=== PATIENT | female | born 1980 | race African-American/Black ===

== ENCOUNTER → 2020-09-19 12:21 | Outpatient (BNVA) | payer OTHER, SELFPAY | PROVIDERS: PCP Nurse Practitioner Family; Visit Provider Surgery ==

== ENCOUNTER 2020-09-25 09:42 | Outpatient (REF) | payer OTHER, MEDICAID, SELFPAY ==
--- NOTE | ~2020-09-25 | XR_ITS ---
EXAMINATION: XR CHEST CLINICAL INFORMATION: Obesity COMPARISON: None TECHNIQUE: 2 views of the chest were obtained. FINDINGS: No significant abnormality is noted involving the heart, lungs, mediastinum, bony thorax or soft tissues. XR/XR chest 2V IMPRESSION: Unremarkable examination.
--- NOTE | 2020-09-25 09:54 | ECG_ITS ---
Test Reason : MORBID OBESITY Blood Pressure : / mmHG Vent. Rate : 083 BPM Atrial Rate : 083 BPM P-R Int : 156 ms QRS Dur : 084 ms QT Int : 358 ms P-R-T Axes : 061 006 019 degrees QTc Int : 420 ms Normal sinus rhythm Normal ECG No previous ECGs available Referred By: Davi Salinas Electronically Signed By:Burke Saini
[2020-09-25 10:34] LABS: MANUAL DIFF FLAG NO
[2020-09-25 10:41] LABS: Basophils Percent Auto 0.4 % (0-2); Eosinophils Absolute Auto 0.1 X10*3/uL (0.0-0.4); Eosinophils Percent Auto 1.6 % (0-4); Imm Gran Abs Auto 0.01 X10*3/uL (0.00-0.03); Imm Gran Pct Auto 0.1 % (0.0-0.4); Lymphocytes Absolute Auto 2.4 X10*3/uL (1.2-4.9); Lymphocytes Percent Auto 36.3 % (20-40); Mean Corpuscular HGB Conc 31.4 g/dl (31.0-35.0); Mean Corpuscular Hemoglobin 26.3 pg (27.0-33.0); Mean Corpuscular Volume 83.5 fL (80-98); Mean Platelet Volume 10.7 fL (9.4-12.3); Monocytes Absolute Auto 0.3 X10*3/uL (0.1-1.2); Monocytes Percent Auto 5.1 % (2-11); Neutrophils Absolute Auto 3.8 X10*3/uL (2.0-8.3); Neutrophils Percent Auto 56.5 % (45-73); Platelet Count 276 X10*3/uL (160-400); Red Blood Count 4.19 X10*6/uL (4.20-5.50); Red Cell Distribution Width 16.3 % (11.0-16.0); White Blood Count 6.7 X10*3/uL (4.8-10.8)
[2020-09-25 11:17] LABS: Estimated Average Glucose 105 mg/dL; Hemoglobin A1c % 5.3 %
[2020-09-25 11:18] LABS: Ferritin 19 ng/mL (10-122); TSH reflex Free T4 1.59 uIU/mL (0.32-4.0); Vitamin D 25-OH Total 9.5 ng/mL (>30)
[2020-09-25 11:20] LABS: Alanine Aminotransferase 12 U/L (0-31); Albumin Level 3.8 g/dL (3.5-5.0); Alkaline Phosphatase 73 U/L (39-117); Anion Gap 13 (12-20); Aspartate Amino Transferase 13 U/L (5-31); Bilirubin Total 0.5 mg/dL (0.0-1.0); Blood Urea Nitrogen 11 mg/dL (9-16); C Reactive Protein 1.69 mg/dL (< or = 0.50); Calcium 8.6 mg/dL (8.4-10.2); Carbon Dioxide 21 mmol/L (22-29); Chloride 108 mmol/L (96-108); Cholesterol 98 mg/dL; Estimated Glomerular Filt Rate > 60; Glucose Random 93 mg/dL (60-115); HDL Cholesterol 38 mg/dL; LDL Cholesterol Calculated 54 mg/dl; Potassium 4.2 mmol/L (3.3-5.1); Sodium 138 mmol/L (135-145); Total Protein 7.2 g/dL (6.5-8.0); Triglycerides 31 mg/dL
[2020-09-25 11:52] LABS: Folate 13.4 ng/mL (> or = 4.0); Vitamin B12 813 pg/mL (200-900)
[2020-09-26 09:51] LABS: Insulin Level Total 7.9 uIU/mL
[2020-09-26 15:06] LABS: H Pylori Breath Test NOT DETECTED (NOT DETECTED)
[2020-09-26 17:31] LABS: Calcium (PTHI) 8.8 mg/dL (8.6-10.2); PTHI 48 pg/mL (14-64)
[2020-09-27 19:56] LABS: Zinc 77 mcg/dL (60-130)
[2020-09-28 01:07] LABS: Vitamin A 27 mcg/dL (38-98)
[2020-09-29 12:22] LABS: Vitamin B1 17 nmol/L (8-30)
== END 2020-09-25 09:43 | disposition home or self-care (01) ==
LOC: HO.XRAY 09:42
PROVIDERS: PCP Nurse Practitioner Family; Visit Provider Surgery
DX: E66.01 Morbid (severe) obesity due to excess calories (principal); K21.9 Gastro-esophageal reflux disease without esophagitis; I26.99 Other pulmonary embolism without acute cor pulmonale; E03.9 Hypothyroidism, unspecified
CPT/HCPCS: 36415; 71046; 80053; 80061; 82306; 82607; 82728; 82746; 83013; 83036; 83525; 83970; 84425; 84443; 84590; 84630; 85025; 86140; 93005

== ENCOUNTER 2020-10-02 09:44 | Outpatient (REF) | payer OTHER, SELFPAY ==
--- NOTE | ~2020-10-02 | FL_ITS ---
EXAMINATION: FL XR GI SERIES CLINICAL INFORMATION: Morbid obesity. COMPARISON: None TECHNIQUE: Air contrast upper GI examination. FINDINGS: There is normal apposition of the vocal cords while saying E. There is normal elevation of the soft palatal saying candy. Patient drank thin and thick barium following CO2 crystal ingestion. No nasopharyngeal reflux or tracheal aspiration identified. No Zenker's diverticulum. There is normal esophageal motility. No hiatal hernia was identified. There was some transient gastroesophageal reflux within the distal third of the esophagus which cleared rapidly. The stomach demonstrates normal distensibility without abnormal mass or ulceration. There was no delay in gastric emptying. No mucosal abnormality of the duodenum was identified. On a few images, there appears to be a small duodenal diverticulum off the second portion of the duodenum. FLUOROSCOPY TIME: 2 minutes. DOSE AREA PRODUCT: 18.865 Gy-cm2 (palmer-centimeter squared). FL/FL upper GI series IMPRESSION: 1. Mild transient gastroesophageal reflux within the distal third of the esophagus. 2. Question small duodenal diverticulum.
--- NOTE | ~2020-10-02 | US_ITS ---
EXAMINATION: US COMPLETE ABDOMEN WITH LIVER ELASTOGRAPHY CLINICAL INFORMATION: Morbid obesity COMPARISON: None. TECHNIQUE: Real-time imaging of the abdominal viscera. Noninvasive ultrasound liver fibrosis assessment is performed using Adithya ElastPQ point quantification shear wave elastography (pSWE) with a C5-2 MHz transducer. Multiple elastography samples are obtained. FINDINGS: PANCREAS: Normal. The visualized pancreatic head and body are normal in appearance. The remainder of the pancreas is obscured from visualization by the overlying bowel gas. ABDOMINAL AORTA: The proximal, middle, and distal aortic segments are normal in caliber. INFERIOR VENA CAVA: Visualized portions are normal. LIVER: Normal. The liver demonstrates normal size, contour and echogenicity. No focal lesion or intrahepatic biliary duct dilatation. The right lobe measures 15.1 cm in length. The left lobe measures 11.7 cm in length. Portal flow is hepatopedal Shear wave liver elastography median stiffness is 1.19 m/s (reference: normal median stiffness is 1.3 m/s or less). IQR/median stiffness to assess sampling precision is 0.13 (reference: good quality data set is IQR/median stiffness of 0.15 or less). GALLBLADDER: Normal. The gallbladder is physiologically distended without evidence of stones, sludge, polyps, wall thickening or pericholecystic fluid. COMMON BILE DUCT: Normal in caliber measuring 0.8 cm in diameter. RIGHT KIDNEY: Normal. No hydronephrosis. No renal calculi or focal parenchymal lesions. The kidney measures 11.6 cm in maximum dimension. LEFT KIDNEY: Normal. No hydronephrosis. No renal calculi or focal parenchymal lesions. The kidney measures 10.8 cm in maximum dimension. SPLEEN: Normal. The spleen measures 10.4 cm in maximum dimension. FREE FLUID: None. US/US abdomen comp w elastography IMPRESSION: 1. Normal ultrasound of the abdomen. 2. Liver elastography: Measurements are consistent with a high probability of normal liver stiffness. REFERENCE: Society of Radiologists in Ultrasound Liver Stiffness Thresholds (2020): LIVER STIFFNESS THRESHOLDS: *Liver Stiffness equal or less than 1.3 m/s: High probability of being normal. *Liver Stiffness less than 1.7 m/s: In the absence of other known clinical signs, rules out compensated advanced chronic liver disease. *Liver Stiffness 1.7-2.1 m/s: Suggestive of compensated advanced chronic liver disease but need further test for confirmation. *Liver Stiffness over 2.1 m/s: Rules in compensated advanced chronic liver disease. *Liver Stiffness over 2.4 m/s: Suggestive of clinically significant portal hypertension. QUALITY OF DATA SET: *IQR/Median value equal or less than 0.15 implies a quality data set. *IQR/Median value over 0.15 implies a poor quality data set. SIGNIFICANT CHANGE FROM PRIOR EXAM: Significant change if liver stiffness measurement is 10% or greater from prior exam. OTHER CONSIDERATIONS: The stage of liver fibrosis may be overestimated in the setting of acute hepatitis, liver inflammation, elevated liver function tests, hepatic vascular congestion, obstructive cholestasis, non-fasting state, and infiltrative diseases such as amyloidosis and lymphoma. In some patients with NAFLD, the liver stiffness thresholds for compensated advanced chronic liver disease may be lower. In causes other than viral hepatitis and NAFLD, liver stiffness thresholds are not well established.
== END 2020-10-02 09:45 | disposition home or self-care (01) ==
LOC: HO.US 09:44
PROVIDERS: PCP Nurse Practitioner Family; Visit Provider Surgery
DX: Z01.818 Encounter for other preprocedural examination (principal); E66.01 Morbid (severe) obesity due to excess calories; K21.9 Gastro-esophageal reflux disease without esophagitis; I26.99 Other pulmonary embolism without acute cor pulmonale; E03.9 Hypothyroidism, unspecified
CPT/HCPCS: 74240; 76705; 76981

== ENCOUNTER → 2020-10-09 08:41 | Outpatient (BNVA) | payer OTHER, SELFPAY | PROVIDERS: PCP Nurse Practitioner Family; Visit Provider Surgery ==

== ENCOUNTER → 2020-10-16 08:14 | Outpatient (BNVA) | payer OTHER, SELFPAY | PROVIDERS: PCP Nurse Practitioner Family; Visit Provider Dietitian, Registered | DX: E66.01 Morbid (severe) obesity due to excess calories (principal); Z68.39 Body mass index [BMI] 39.0-39.9, adult | CPT/HCPCS: 97802 ==

== ENCOUNTER → 2020-11-04 08:19 | Outpatient (BNVA) | payer OTHER, SELFPAY | PROVIDERS: PCP Nurse Practitioner Family; Visit Provider Surgery ==

== ENCOUNTER → 2020-11-06 08:04 | Outpatient (BNVA) | payer OTHER, SELFPAY | PROVIDERS: PCP Nurse Practitioner Family; Visit Provider Dietitian, Registered | DX: E66.01 Morbid (severe) obesity due to excess calories (principal); Z68.41 Body mass index [BMI] 40.0-44.9, adult | CPT/HCPCS: 97803 ==

== ENCOUNTER → 2020-11-29 08:28 | Outpatient (BNVA) | payer OTHER, SELFPAY | PROVIDERS: PCP Nurse Practitioner Family; Visit Provider Surgery ==

== ENCOUNTER → 2021-01-06 07:05 | Outpatient (BNVA) | payer MEDICAID, SELFPAY | PROVIDERS: PCP Nurse Practitioner Family; Visit Provider Surgery ==

== ENCOUNTER 2023-05-04 09:10 | Outpatient (AMB) | payer OTHER, SELFPAY ==
--- NOTE | 2023-05-04 09:22 | MHC.OFFVISWM ---
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 She was in the program from August through December 2020 with a weight originally of 275 lb, down to 253 lb in January 15. Around the time that she was ready to have surgery, she had increased anxiety and chose not to pursue any further surgical intervention at that time. She states that since then, she has had several discussions with her behavioral health therapist and feels much more confident about her current goals and she states that she is now in a better place mentally to proceed forward with bariatric surgery. Her goal is to lose weight and achieve a healthy lifestyle. She reports first being concerned about her weight 5 years ago, highest weight to date was 279. Current weight is 279.4 pounds with a BMI of 41.3. She has tried multiple methods of weight loss including previous SWL program without permanent results. She lives with her and 4 children. 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 She does report that she is followed by [facility] for a valvular problem, last being seen in 2021. She was told that there is no current recommendations for intervention. She additionally has a history of pulmonary embolism although this was secondary to vertigo approximately 7 years ago. She wakes at:?5am, and goes to bed at?9 pm. Dinner is at 6 pm. Breakfast: coffee, 4 cream 4 sugar, bagel egg and cheese w koo toasted w butter AM snack: skip Lunch: tacos, cheeseburger and FF, stuffed shells, mac and cheese, wings PM snack: skip Dinner: rice, broccoli, chicken, pork chop After dinner: sometimes pie, ice cream, crackers Other snacks: as above Liquids: 24 oz water, 20 oz coke daily, no juice Alcohol/marijuana/tobacco intake: rare etoh, no cannabis, no tobacco Exercise: [employer] gym membership [facility] Medical History Hypothyroidism Depression GERD (gastroesophageal reflux disease) Pulmonary embolism Epilepsy Morbid obesity Surgical History History of laparoscopic cholecystectomy History of laparoscopic appendectomy Family History Father Coronary artery disease Hypertension Diabetes mellitus Mother Breast cancer Hypertension Daughter No problems noted. Son Asthma Food allergy Son Asthma Food allergy Son Food allergy Asthma Daughter No problems noted. Social History Alcohol intake: current Alcohol intake frequency: holidays/special occasions only Patient Tobacco Use Status: Never used Tobacco Review of Systems Const All systems reviewed & are unremarkable except as noted in HPI and below Physical Exam Const General: cooperative, healthy appearing and no acute distress Orientation/consciousness: patient oriented x3 HEENT Head: Yes normal to inspection Ears: hearing grossly normal bilaterally General nose exam: Normal external nose present Face and sinus: Yes normal facial exam Eyes General: appearance normal, both eyes and all related structures Resp Effort & Inspection: normal respiratory effort Auscultation: clear to auscultation bilaterally Cardio Rate: regular rate Rhythm: regular rhythm Heart sounds: S1 normal heart sound present and S2 normal heart sound present GI Inspection: Yes normal to inspection, No distended and Yes obesity Palpation (GI): Soft to palpation, nontender and no guarding Auscultation: normal bowel sounds Skin General skin exam: no rashes or lesions noted Neuro General: patient oriented x3 Extrem General: No edema Psych Appearance: grossly normal Mental Status: mental status grossly normal Speech and movement: Normal speech and movement present Affect: normal affect Attitude: cooperative Assessment & Plan Assessment & Plan (1) Morbid obesity: Code(s): E66.01 - Morbid (severe) obesity due to excess calories Plan: This is a?42 yo female who will re-start our SWL program to prepare for bariatric surgery.? Blood work, h pylori , CXR, ECG, Abd US and UGI have been ordered. She is being scheduled for RD and BH initial consultations. She will start SWL classes and watch the first three videos before her next appointment. ? Adequate sleep of 7-8 hours per night discussed, awakening at 5 am and going to bed at 9 pm ? You stated that you already have a body composition scale so it will be important to remember to check weight weekly. The best time to do this is first thing in the morning after going to the bathroom. 1. Nutritional counseling: Be sure to careful read the number of scoops per shake Start with 1 celebrate rebuild shake ([facility] [employer], [employer], [employer]), (2 scoops in 20 oz unsweetened almond milk) at 6am-8am 2 protein bars (Celebrate bars at [facility] [employer], [employer], [employer]) First bar at 9am-11am. Second bar at 1pm-3pm Dinner at 6pm (10 forks of protein and 10 forks of salad/vegetables). Meal to include lean meat (beef, fish, pork, turkey, chicken), cooked vegetables or a salad with olive oil and/or fruits (berries, pears, apples, kiwi). Avoid salt, breads, potatoes, rice, pasta, desserts. Try to drink 64 oz of water daily and avoid soda and juices. ?2. Each shake would be drunk slowly, like coffee in a period of 2 hours. ?3. Cut each bar in 4 pieces and eat each piece in 30 min ?to make each bar last 2 hours. ?4. I emphasized the importance of measuring accurately the food portion and measure it carefully when serving the food on the plate ?5. The meal portions include 10 full-size forks of meat and 10 full-size forks of salad. You always eat the meat portion but you can replace up to half of the forks of salad/vegetables with rice, potatoes or pasta, or a fruit ?if you like. The less you do it the better weight loss will be. ?6. One full-size fork is what can be scooped on the fork without falling aside and not what can be bit with the fork. Use regular forks like those you find in a typical restaurant. ?7.? Please send me weight measurements as soon as possible and then once a week. Always include your diet and exercise plan. Alternatively come weekly at the office for weight checks and send me the measurements. ?8. Exercise counseling: Begin by watching a stretching for beginners video. Start slowly and begin to stretch your muscles. You should do this before and after each exercise session to prevent injury. Please go to [employer] gym near your home. Ask the global upstream marketing manager or one of the trainers how to use the machines if you are unfamiliar with them. Start elliptical with a resistance of 2. Increase resistance by 1 every 3 min to your most comfortable resistance with a max resistance of 8. Reduce the resistance by 1 every 3 minutes back down to 2 and repeat cycles for 300 calories. Alternatively, start treadmill with a speed of 3.0 and incline of 0, increasing incline by 1 every 3 minutes to the highest comfortable level (max 6 for now) then decrease in the same fashion. Repeat process to a goal of 300 calories. Goal of 2000 calories burned or more weekly. You may also consider use of the stationary bike. The easiest would be to chose the fat-burn or interval training program on the machine and do this until you reach the 300 calorie goal. Alternatively, you can manually adjust the resistance in a similar fashion as mentioned above, (resistance of 2-8 with a goal speed of 12 mph). Tracking calories is essential. 9. Alternatively start walking outside daily, tracking calories with a goal of 300 calories per day, daily. You can download the [employer] which can track your time, distance and calories while walking outside. You press start in the funmilayo when you start and then stop when you are finished. 10.? It is important to avoid for at least 18 months postoperatively 11. Please get labs, EKG and chest X-Ray within 1 week. 12. Discussed and answered all questions regarding?obtained consent to participate in the [place]?Registry. 13. Please follow the diet plan exactly, without any change. If you do not like something about the plan or you feel hungry, you need to communicate with me so I can help you revise the plan. You should not change the plan yourself. Text me at [phone] 14. Goal is to lose at least 12 pounds in the first month 15. Goal is to lose 10% of your weight before surgery, which is about 28 lbs. Ultimate weight goal: 251 lbs before surgery 16. Please call your driver operator at [facility] to arrange for a follow-up appointment to your noted valvular problem and to request cardiac risk stratification for bariatric surgery. Please have them fax their note to our office at [phone] Patient is morbidly obese and is not considered stable at this time.?I spent a total of 70 minutes reviewing/updating records, examining the patient and counseling the patient on weight management as detailed above. Orders: Orders Comprehensive Met. Panel Today E50.9 - Vitamin A deficiency, unspecified, E55.9 - Vitamin D deficiency, unspecified, E66.01 - Morbid (severe) obesity due to excess calories Vitamin B1 Today E50.9 - Vitamin A deficiency, unspecified, E55.9 - Vitamin D deficiency, unspecified, E66.01 - Morbid (severe) obesity due to excess calories PTHI Today E50.9 - Vitamin A deficiency, unspecified, E55.9 - Vitamin D deficiency, unspecified, E66.01 - Morbid (severe) obesity due to excess calories H Pylori Breath Test Today E50.9 - Vitamin A deficiency, unspecified, E55.9 - Vitamin D deficiency, unspecified, E66.01 - Morbid (severe) obesity due to excess calories US abdomen comp w elastography Today E50.9 - Vitamin A deficiency, unspecified, E55.9 - Vitamin D deficiency, unspecified, E66.01 - Morbid (severe) obesity due to excess calories XR chest 2V Today E50.9 - Vitamin A deficiency, unspecified, E55.9 - Vitamin D deficiency, unspecified, E66.01 - Morbid (severe) obesity due to excess calories FL upper GI w air Today E50.9 - Vitamin A deficiency, unspecified, E55.9 - Vitamin D deficiency, unspecified, E66.01 - Morbid (severe) obesity due to excess calories Insulin Today E50.9 - Vitamin A deficiency, unspecified, E55.9 - Vitamin D deficiency, unspecified, E66.01 - Morbid (severe) obesity due to excess calories Lipid Panel Today E50.9 - Vitamin A deficiency, unspecified, E55.9 - Vitamin D deficiency, unspecified, E66.01 - Morbid (severe) obesity due to excess calories IRON PROFILE Today E50.9 - Vitamin A deficiency, unspecified, E55.9 - Vitamin D deficiency, unspecified, E66.01 - Morbid (severe) obesity due to excess calories Complete Blood Count Auto Diff Today E50.9 - Vitamin A deficiency, unspecified, E55.9 - Vitamin D deficiency, unspecified, E66.01 - Morbid (severe) obesity due to excess calories Vitamin B12 and Folate Today E50.9 - Vitamin A deficiency, unspecified, E55.9 - Vitamin D deficiency, unspecified, E66.01 - Morbid (severe) obesity due to excess calories Zinc Today E50.9 - Vitamin A deficiency, unspecified, E55.9 - Vitamin D deficiency, unspecified, E66.01 - Morbid (severe) obesity due to excess calories Vitamin A Today E50.9 - Vitamin A deficiency, unspecified, E55.9 - Vitamin D deficiency, unspecified, E66.01 - Morbid (severe) obesity due to excess calories C Reactive Protein Today E50.9 - Vitamin A deficiency, unspecified, E55.9 - Vitamin D deficiency, unspecified, E66.01 - Morbid (severe) obesity due to excess calories Ferritin Today E50.9 - Vitamin A deficiency, unspecified, E55.9 - Vitamin D deficiency, unspecified, E66.01 - Morbid (severe) obesity due to excess calories TSH reflex Free T4 Today E50.9 - Vitamin A deficiency, unspecified, E55.9 - Vitamin D deficiency, unspecified, E66.01 - Morbid (severe) obesity due to excess calories Vitamin D 25-OH Total Today E50.9 - Vitamin A deficiency, unspecified, E55.9 - Vitamin D deficiency, unspecified, E66.01 - Morbid (severe) obesity due to excess calories Hemoglobin A1c Today E50.9 - Vitamin A deficiency, unspecified, E55.9 - Vitamin D deficiency, unspecified, E66.01 - Morbid (severe) obesity due to excess calories ECG 12 lead EKG Today E50.9 - Vitamin A deficiency, unspecified, E55.9 - Vitamin D deficiency, unspecified, E66.01 - Morbid (severe) obesity due to excess calories Referrals Behavioral Health Referral E50.9 - Vitamin A deficiency, unspecified, E55.9 - Vitamin D deficiency, unspecified, E66.01 - Morbid (severe) obesity due to excess calories Nutrition/Dietitian Referral E50.9 - Vitamin A deficiency, unspecified, E55.9 - Vitamin D deficiency, unspecified, E66.01 - Morbid (severe) obesity due to excess calories Coding Level of Care Code Est Pt Level 5 (84663) Diagnoses Morbid obesity E66.01 Time Spent (min) 70
[2023-05-04 09:29] VITALS: BP 132/71; PULSE 88; TEMP 36.6; O2SAT 100; BMI 41.3
== END 2023-05-04 11:02 | disposition home or self-care (01) ==
PROVIDERS: PCP Nurse Practitioner Family; Visit Provider Physician Assistant Surgical
DX: E66.01 Morbid (severe) obesity due to excess calories (principal); Z68.41 Body mass index [BMI] 40.0-44.9, adult
CPT/HCPCS: 99215

== ENCOUNTER → 2023-05-04 09:10 | Outpatient (BNVA) | payer OTHER, SELFPAY | PROVIDERS: PCP Nurse Practitioner Family; Visit Provider Physician Assistant Surgical | DX: E66.01 Morbid (severe) obesity due to excess calories (principal); Z68.41 Body mass index [BMI] 40.0-44.9, adult | CPT/HCPCS: 99212 ==

== ENCOUNTER 2023-05-07 07:36 | Outpatient (REF) | payer OTHER, SELFPAY ==
[2023-05-07 08:02] LABS: MANUAL DIFF FLAG NO
[2023-05-07 09:11] LABS: Basophils Percent Auto 0.5 % (0-2); Eosinophils Absolute Auto 0.1 X10*3/uL (0.0-0.4); Eosinophils Percent Auto 1.7 % (0-4); Hematocrit 36.1 % (37.0-47.0); Hemoglobin 11.6 g/dl (12.0-16.0); Imm Gran Abs Auto 0.01 X10*3/uL (0.00-0.03); Imm Gran Pct Auto 0.2 % (0.0-0.4); Lymphocytes Percent Auto 31.6 % (20-40); Mean Corpuscular HGB Conc 32.1 g/dl (31.0-35.0); Mean Corpuscular Hemoglobin 26.7 pg (27.0-33.0); Mean Platelet Volume 11.1 fL (9.4-12.3); Monocytes Absolute Auto 0.4 X10*3/uL (0.1-1.2); Monocytes Percent Auto 5.7 % (2-11); Neutrophils Absolute Auto 3.9 x10*3/uL (2.0-8.3); Neutrophils Percent Auto 60.3 % (45-73); Platelet Count 281 X10*3/uL (160-400); Red Blood Count 4.35 X10*6/uL (4.20-5.50); Red Cell Distribution Width 15.2 % (11.0-16.0); White Blood Count 6.4 X10*3/uL (4.8-10.8)
[2023-05-07 09:26] LABS: Estimated Average Glucose 114 mg/dL; Hemoglobin A1c % 5.6 % (<6.0)
[2023-05-07 10:13] LABS: Folate 9.5 ng/mL (> or = 4.0); Vitamin B12 936 pg/mL (200-900)
[2023-05-07 10:48] LABS: Alanine Aminotransferase 12 U/L (0-31); Albumin Level 3.8 g/dL (3.5-5.0); Alkaline Phosphatase 67 U/L (39-117); Anion Gap 9 (12-20); Aspartate Amino Transferase 14 U/L (5-31); Bilirubin Total 0.5 mg/dL (0.0-1.0); Blood Urea Nitrogen 12 mg/dL (9-16); C Reactive Protein 1.86 mg/dL (< or = 0.50); Calcium 8.9 mg/dL (8.4-10.2); Carbon Dioxide 23 mmol/L (22-29); Chloride 110 mmol/L (96-108); Cholesterol 91 mg/dL (<200); Estimated Glomerular Filt Rate > 60; Glucose Random 103 mg/dL (60-115); HDL Cholesterol 33 mg/dL (>40); Iron 42 mcg/dL (30-160); LDL Cholesterol Calculated 52 mg/dL (<100); Percent Iron Saturation 14 % (15-50); Sodium 138 mmol/L (135-145); Total Iron Binding Capacity 310 mcg/dL (228-428); Total Protein 7.6 g/dL (6.5-8.0); Triglycerides 32 mg/dL (<150); Unsaturated Iron Binding 268 ug/dL
[2023-05-07 11:10] LABS: Ferritin 31 ng/mL (10-250); Insulin 16 uU/mL (2-29); TSH reflex Free T4 1.49 uIU/mL (0.32-4.0); Vitamin D 25-OH Total 13.2 ng/mL (>30)
[2023-05-10 17:28] LABS: PTHI 35 pg/mL (16-77)
[2023-05-11 06:04] LABS: Zinc 64 mcg/dL (60-130)
[2023-05-12 09:28] LABS: Vitamin A 27 mcg/dL (38-98)
[2023-05-12 12:59] LABS: Vitamin B1 9 nmol/L (8-30)
== END 2023-05-07 07:37 | disposition home or self-care (01) ==
LOC: HO.LAB 07:36
PROVIDERS: PCP Nurse Practitioner Family; Visit Provider Physician Assistant Surgical
DX: E66.01 Morbid (severe) obesity due to excess calories (principal); E50.9 Vitamin A deficiency, unspecified; E55.9 Vitamin D deficiency, unspecified
CPT/HCPCS: 36415; 80053; 80061; 82306; 82607; 82728; 82746; 83036; 83525; 83540; 83970; 84425; 84443; 84590; 84630; 85025; 86140

== ENCOUNTER 2023-05-19 08:41 | Outpatient (REF) | payer OTHER, SELFPAY ==
[2023-05-20 10:50] LABS: H Pylori Breath Test Negative (Negative)
== END 2023-05-19 08:42 | disposition home or self-care (01) ==
LOC: CF 08:41
PROVIDERS: PCP Nurse Practitioner Family; Visit Provider Physician Assistant Surgical
DX: Z11.2 Encounter for screening for other bacterial diseases (principal); E66.01 Morbid (severe) obesity due to excess calories; E50.9 Vitamin A deficiency, unspecified; E55.9 Vitamin D deficiency, unspecified
CPT/HCPCS: 83013; 99211

== ENCOUNTER → 2023-05-25 09:21 | Outpatient (BNVA) | payer OTHER, SELFPAY | PROVIDERS: PCP Nurse Practitioner Family; Visit Provider Dietitian, Registered | DX: E66.9 Obesity, unspecified (principal) | CPT/HCPCS: 97802 ==

== ENCOUNTER 2023-05-31 15:14 | Outpatient (AMB) | payer OTHER, SELFPAY ==
--- NOTE | 2023-05-31 09:58 | MHC.OFFVISWM ---
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 Allergies No Known Allergies [No Known Allergies*] Allergy (Verified 05/04/23 09:24) Medication List - Last Reconciled 05/31/23 by BRITTANY Nathan apixaban (Eliquis) 5 mg PO BID bupropion HCl (Wellbutrin SR) 150 mg PO BID cholecalciferol (vitamin D3) 125 mcg PO DAILY 90 days iron,carbonyl-vitamin C 65 mg iron- 125 mg (Vitron-C) 1 tab PO DAILY 90 days levetiracetam (Keppra) 1,000 mg PO BID vitamin A palmitate 3,000 mcg PO DAILY 60 days HPI HPI Comments History of Present Illness Details The patient is a pleasant 42 year old female who returns to the clinic for pre-operative surgical weight loss management. They were last seen in the office on 05/04/23, recorded weight at that time was 279.4 pounds, with a BMI of 41.3. Today's weight is 278 pounds and BMI is 41.1. There has been a weight loss of 1.4 pounds since initiating the surgical weight loss program on 05/04/23 with a total body weight loss of 0.5 %. Pre op work up completed as follows: SWL classes:? 10/03 appts: 06/01/23 ? ? RD appts: needs f/u Labs: 05/07/23-low A, D, mild iron def anemia H. pylori: 05/19/23-neg CXR: not yet done EKG: not yet done ABD U/S: not yet done UGI: not yet done The patient reports she has upset stomach for the 4 days, with assoc constipation. She has been using a dose of miralax daily. The patient does have a body composition scale. They also have been communicating weekly. She did not follow any meal plan for the . She is now back on track with her meal plan. Current meal plan includes: 1 celebrate rebuild shake ([facility] [employer], [employer]), (2 scoops in 20 oz unsweetened almond milk) at 6am-8am 2 protein bars (Celebrate bars at [facility] [employer], [employer], [employer]) First bar at 9am-11am. Second bar at 1pm-3pm Dinner at 6pm (10 forks of protein and 10 forks of salad/vegetables). Drinking 64 oz of water Current exercise plan includes: none in the last 5 days. Treadmill, 300 calories typically 3 days per week and walking on the weekends, not tracking calories PFSH Medical History Hypothyroidism Depression GERD (gastroesophageal reflux disease) Pulmonary embolism Epilepsy Morbid obesity Surgical History History of laparoscopic cholecystectomy History of laparoscopic appendectomy Family History Father Coronary artery disease Hypertension Diabetes mellitus Mother Breast cancer Hypertension Daughter No problems noted. Son Asthma Food allergy Son Asthma Food allergy Son Food allergy Asthma Daughter No problems noted. Social History Alcohol intake: current Alcohol intake frequency: holidays/special occasions only Patient Tobacco Use Status: Never used Tobacco Review of Systems Const All systems reviewed & are unremarkable except as noted in HPI and below Assessment & Plan Assessment & Plan (1) Morbid obesity: Code(s): E66.01 - Morbid (severe) obesity due to excess calories Plan: Patient has been encouraged to maintain discipline and adhere to the meal plan. She recognized the abdominal discomfort when she ate too much at the . She was additionally encouraged to return to the gym. Continue current meal plan and return to clinic in 3 weeks. (2) Constipation: Code(s): K59.00 - Constipation, unspecified Plan: Add Dulcolax suppository today and senna tablets orally. Discussed with the patient that she may need 1 senna tablet nightly or every other night based upon regularity once she resolves current constipation issue Medications: New sennosides (senna) 17.2 mg (2 x 8.6 mg) PO BEDTIME PRN 90 tabs 0RF constipation bisacodyl (Dulcolax (bisacodyl)) 10 mg [place] DAILY PRN 12 ea 0RF constipation Telehealth Telehealth Location of provider rendering services: practice address Location of patient: address on file Patient Identification confirmed using: Name, : Yes Telehealth method: voice only Patient verbally consented to treatment: Yes Patient verbally consented to billing insurance company: Yes Patient informed of any privacy concerns related to visit: Yes Minutes spent on Phone/Video with Pt.: 15 Coding Level of Care Code Tele Est Pt Level 3 (46989) Diagnoses Morbid obesity E66.01 Constipation K59.00 Time Spent (min) 20
[2023-05-31 09:59] VITALS: BMI 41.0
--- OUTSIDE RECORDS SUMMARY | 2023-05-31 15:20 | XMS_ITS | Continuity of Care Document ---
Author Name Unknown Organization [facility] Address [address] [place] [address]- Care Team Providers Care Geological Drafter Name Role Phone Lori Cervantes NP Primary Care Physician [place] [facility] [place]/23 [facility] [address] Floor [address] [place] [address]- Attending Physician: Dottie Akins Admitting Physician: AdmDottie samuel Referring Physician: Admtr, Ar8 Allergies, Adverse Reactions, Alerts Substance Reaction Severity Status papaya Active Bee Stings Active Immunizations Given and Recorded Vaccine Date Status Refusal Reason Influenza Virus Vaccine (oldterm) 04/10/22 Recorde d Influenza Virus Vaccine (oldterm) 04/16/20 Recorde d SARS-CoV-2 (COVID-19) mRNA BNT-162b2 vac 05/16/21 Recorded SARS-CoV-2 (COVID-19) mRNA BNT-162b2 vac 08/14/20 Recorded SARS-CoV-2 (COVID-19) mRNA BNT-162b2 vac 07/24/20 Recorded influenza virus vaccine, inactivated 04/25/21 Saad rded influenza virus vaccine, inactivated 03/25/21 Saad rded influenza virus vaccine, inactivated 04/17/20 Saad rded influenza virus vaccine, inactivated 1 04/13/16 Gi luna influenza virus vaccine, inactivated 03/13/15 Saad rded influenza virus vaccine, inactivated 04/28/13 Saad rded influenza virus vaccine, inactivated 03/18/10 Saad rded influenza virus vaccine, inactivated 03/26/09 Saad rded pneumococcal 23-valent vaccine 10/09/16 Given tetanus/diphtheria/pertussis, acel(Tdap) 04/13/16 Given tetanus/diphtheria/pertussis, acel(Tdap) 11/04/11 Recorded Human Papillomavirus Vaccine 05/07/09 Recorded Botulinum Toxin Type A Vacc (oldterm) 2 07/27/08 R ecorded Botulinum Toxin Type A Vacc (oldterm) 3 07/27/08 R ecorded Botulinum Toxin Type A Vacc (oldterm) 4 07/27/08 R ecorded Hepatitis B Vaccine (old term) 08/07/04 Recorded Hepatitis B Vaccine (old term) 02/28/04 Recorded Hepatitis B Vaccine (old term) 02/01/04 Recorded tetanus-diphtheria toxoids (Td) 02/01/04 Recorded diphtheria/tetanus/pertussis, acel(DTaP) 02/24/88 Recorded diphtheria/tetanus/pertussis, acel(DTaP) 09/05/85 Recorded diphtheria/tetanus/pertussis, acel(DTaP) 06/12/83 Recorded diphtheria/tetanus/pertussis, acel(DTaP) 03/23/83 Recorded diphtheria/tetanus/pertussis, acel(DTaP) 82 Recorded Measles/Mumps/Rubella Virus Vaccine 09/05/85 Recor ded 1Result Comment: Seqirus 2Result Comment: mumps titre + 3Result Comment: measles titer + 4Result Comment: HEPATITIS B TITER- POSITIVE + Medications albuterol CFC free 90 mcg/inh inhalation aerosol 2, puffs, Inhalation, Every 4 hours, PRN, # 6.7 Gm, Refills 0, Tot. Refills 0, Maintenance, 03/17/23 9:04:00 EDT, Aerosol, Route to Pharmacy Electronically, [id number], [facility] 1967, 175, cm, 01/11/23 12:44:00 EDT, H... Start Date: 03/17/23 Stop Date: 04/16/23 Status: Ordered BuPROPion (Eqv-Wellbutrin SR) 150 mg/12 hours oral tablet, extended release 1 tablet, By Mouth, 2 times a day, # 180 tablet, 0 Refills, Maintenance, 04/28/23 11:00:00 EDT, [facility] 1967, 175, cm, 04/02/23 10:08:00 EDT, Height, 126, kg, 09/03/22 22:49:00 EST, Dry Weight Start Date: 04/28/23 Stop Date: 07/27/23 Status: Ordered Compression Stockings See Instructions, # 2 each, Refills 2, Tot. Refills 2, Maintenance, surgical, knee length 20-30 mm Hg, 06/23/21 8:35:00 EST, Supply Start Date: 06/23/21 Status: Ordered Eliquis 2.5 mg oral tablet 1 tablet = 2.5 mg, By Mouth, 2 times a day, # 180 tablet, 3 Refills, Maintenance, 08/20/22 15:48:00EST, Tablet, [facility] 1966, Partial fill upon patient request if the prescription is for a schedule II opioid drug., 175.5, cm, 08/14/22 15:05:... Start Date: 08/20/22 Status: Ordered furosemide 20 mg oral tablet 1, tablet, By Mouth, Daily, # 90 tablet, Refills 0, Tot. Refills 0, Maintenance, 01/01/23 16:49:00 EDT, Route to Pharmacy Electronically, [facility] 1967, 175, cm, 01/01/23 16:45:00 EDT, Height, 126, kg, 09/03/22 22:49:00 EST, Dry Weight Start Date: 01/01/23 Stop Date: 04/01/23 Status: Ordered levETIRAcetam 1000 mg oral tablet 1 tablet = 1,000 mg, By Mouth, 2 times a day, # 60 tablet, 11 Refills, Maintenance, 12/24/22 8:37:00 EDT, Tablet, [facility] 1967, Partial fill upon patient request, 175, cm, 12/17/22 11:21:00 EDT, Height, 126, kg, 09/03/22 22:49:00 EST, Dry Weight Start Date: 12/24/22 Stop Date: 12/19/23 Status: Ordered MiraLax oral powder for reconstitution = 17 Gm, By Mouth, Daily, dissolve in water before taking, # 527 Gm, 0 Refills, Maintenance, 09/03/22 23:10:00 EST, REC Powder, [facility] 1966, Partial fill upon patient request if the prescription is for a schedule II opioid drug., 17 Gm By Mo... Start Date: 09/03/22 Status: Ordered Nexplanon 68 mg subcutaneous implant 1 each = 68 mg, Subcutaneous Infusion, Once, 0 Refills, Maintenance, 04/01/23 9:45:00 EDT, Partial fill upon patient request if the prescription is for a schedule II opioid drug. Start Date: 04/01/23 Status: Ordered Problem List Condition Confirmation Course Effective Dates Status H ealth Status Informant Hypothyroidism (acquired) Confirmed 12/29/15 Active ADHD Confirmed Active Bilateral hearing loss Confirmed Active Epilepsy Confirmed Active History of blood clots Confirmed Active Menorrhagia Confirmed Active Bipolar 1 disorder, manic, mild Confirmed 09/28/15 Active Anxiety and depression Confirmed Active Severe obesity Confirmed Active Thalassemia syndrome Confirmed 1998 Active Urge incontinence Confirmed Active Social History Social History Type Response Smoking Status Never smoker entered on: 12/05/15 Sex Female Patient Care team information Care Team Personnel Name: Cecilio Cornejo RN Position: [facility] RN Member Role: Primary Care Nurse Name: Lori Cervantes NP Position: [facility] PCO Associate Professional Member Role: PCP Address: Address: [address] [place] [address] Name: Ian RN, Scotty Shultz Position: [facility] RN Member Role: Primary Care Nurse Name: Nelson Moscoso RN Position: [facility] ED RN W/OE and Tasks Member Role: Primary Care Nurse Name: Fiona Gillis RN Position: [facility] SN RN Member Role: Primary Care Nurse Name: Eve Roy RN Position: [facility] RN Member Role: Primary Care Nurse Care Team Related Persons Name: BRAD DOMINGO Address: home [address] [place] [address] Name: CHACORTA DOMINGO Address: home [address] [place] [address] Name: DAMION MENARD Address: [place] [address]
--- OUTSIDE RECORDS SUMMARY | 2023-05-31 15:25 | XMS_ITS | Continuity of Care Document ---
Author Name Unknown Organization [facility] Address [address] [place] [address]- Care Team Providers Care Sap Grc Security Name Role Phone Lori Cervantes NP Primary Care Physician [id number] Date(s): 04/21/23 - 05/27/23 [facility] [address] [place] [address]- Attending Physician: Juanito White Admitting Physician: Juanito White Referring Physician: Lori Cervantes NP Allergies, Adverse Reactions, Alerts Substance Reaction Severity [...] 9:04:00 EDT, Aerosol, Route to Pharmacy Electronically, [id number], [facility] 1967, 175, cm, 01/11/23 12:44:00 EDT, H... Start Date: 03/17/23 Stop Date: 04/16/23 Status: Ordered BuPROPion (Eqv-Wellbutrin SR) 150 mg/12 hours oral tablet, extended release 1 tablet, By Mouth, 2 times a day, # 180 tablet, 0 Refills, Maintenance, 04/28/23 11:00:00 EDT, [facility] 1967, 175, cm, 04/02/23 10:08:00 [...] tablet, 3 Refills, Maintenance, 08/20/22 15:48:00EST, Tablet, [facility] 1966, Partial fill upon patient request if the prescription is for a schedule II opioid drug., 175.5, cm, 08/14/22 15:05:... Start Date: 08/20/22 Status: Ordered furosemide 20 mg oral tablet 1, tablet, By Mouth, Daily, # 90 tablet, Refills 0, Tot. Refills 0, Maintenance, 01/01/23 16:49:00 EDT, Route to Pharmacy Electronically, [facility] 1967, 175, cm, 01/01/23 16:45:00 EDT, Height, 126, kg, 09/03/22 22:49:00 EST, Dry Weight Start Date: 01/01/23 Stop Date: 04/01/23 Status: Ordered levETIRAcetam 1000 mg oral tablet 1 tablet = 1,000 mg, By Mouth, 2 times a day, # 60 tablet, 11 Refills, Maintenance, 12/24/22 8:37:00 EDT, Tablet, [facility] 1967, Partial fill upon patient request, 175, cm, 12/17/22 11:21:00 EDT, Height, 126, kg, 09/03/22 22:49:00 EST, Dry Weight Start Date: 12/24/22 Stop Date: 12/19/23 Status: Ordered MiraLax oral powder for reconstitution = 17 Gm, By Mouth, Daily, dissolve in water before taking, # 527 Gm, 0 Refills, Maintenance, 09/03/22 23:10:00 EST, REC Powder, [facility] 1966, Partial fill upon patient [...] Team Personnel Name: Cecilio Cornejo RN Position: [facility] RN Member Role: Primary Care Nurse Name: Lori Cervantes NP Position: [facility] PCO Associate Professional Member Role: PCP Address: Address: [address] [place] [address] Name: Ian RN, Scotty Shultz Position: [facility] RN Member Role: Primary Care Nurse Name: Nelson Moscoso RN Position: [facility] ED RN W/OE and Tasks Member Role: Primary Care Nurse Name: Fiona Gillis RN Position: [facility] SN RN Member Role: Primary Care Nurse Name: Eve Roy RN Position: [facility] RN Member Role: Primary Care Nurse Care Team Related Persons Name: BRAD DOMINGO Address: home [address] [place] [address] Name: CHACORTA DOMINGO Address: home [address] [place] [address] Name: DAMION MENARD Address: [place] [address]
--- OUTSIDE RECORDS SUMMARY | 2023-05-31 15:25 | XMS_ITS | Continuity of Care Document ---
Author Name Unknown Organization [facility] Address [address] [place] [address]- Care Team Providers Care Production Cloth Cutter Name Role Phone Lori Cervantes NP Primary Care Physician [phone] Encounter [facility] [place] Date(s): 04/26/23 - 05/26/[address] [facility] [address] [place] [id number]- Allergies, Adverse Reactions, Alerts Substance Reaction Severity [...] 9:04:00 EDT, Aerosol, Route to Pharmacy Electronically, [id number], [facility] 1967, 175, cm, 01/11/23 12:44:00 EDT, H... Start Date: 03/17/23 Stop Date: 04/16/23 Status: Ordered BuPROPion (Eqv-Wellbutrin SR) 150 mg/12 hours oral tablet, extended release 1 tablet, By Mouth, 2 times a day, # 180 tablet, 0 Refills, Maintenance, 04/28/23 11:00:00 EDT, [facility] 1967, 175, cm, 04/02/23 10:08:00 EDT, [...] tablet, 3 Refills, Maintenance, 08/20/22 15:48:00EST, Tablet, [facility] 1966, Partial fill upon patient request if the prescription is for a schedule II opioid drug., 175.5, cm, 08/14/22 15:05:... Start Date: 08/20/22 Status: Ordered furosemide 20 mg oral tablet 1, tablet, By Mouth, Daily, # 90 tablet, Refills 0, Tot. Refills 0, Maintenance, 01/01/23 16:49:00 EDT, Route to Pharmacy Electronically, [facility] 1967, 175, cm, 01/01/23 16:45:00 EDT, Height, 126, kg, 09/03/22 22:49:00 EST, Dry Weight Start Date: 01/01/23 Stop Date: 04/01/23 Status: Ordered levETIRAcetam 1000 mg oral tablet 1 tablet = 1,000 mg, By Mouth, 2 times a day, # 60 tablet, 11 Refills, Maintenance, 12/24/22 8:37:00 EDT, Tablet, [facility] 1966, Partial fill upon patient request, 175, cm, 12/17/22 11:21:00 EDT, Height, 126, kg, 09/03/22 22:49:00 EST, Dry Weight Start Date: 12/24/22 Stop Date: 12/19/23 Status: Ordered MiraLax oral powder for reconstitution = 17 Gm, By Mouth, Daily, dissolve in water before taking, # 527 Gm, 0 Refills, Maintenance, 09/03/22 23:10:00 EST, REC Powder, [facility] 1966, Partial fill upon patient request [...] Team Personnel Name: Cecilio Cornejo RN Position: [facility] RN Member Role: Primary Care Nurse Name: Lori Cervantes NP Position: [facility] PCO Associate Professional Member Role: PCP Address: Address: [address] [place] [address] Name: Scotty Sosa RN Position: [facility] RN Member Role: Primary Care Nurse Name: Blanka CORTÉS, Nelson Position: [facility] ED RN W/OE and Tasks Member Role: Primary Care Nurse Name: Eve Roy RN Position: [facility] RN Member Role: Primary Care Nurse Care Team Related Persons Name: JOSE L GIPAT Address: home [address] [place] [id number] Name: CHACORTA DOMINGO Address: home [address] [place] [address] Name: DAMION MENARD Address: [place] [address]
== END 2023-05-31 16:29 | disposition home or self-care (01) ==
LOC: HO.HBS 15:14
PROVIDERS: PCP Nurse Practitioner Family; Visit Provider Physician Assistant Surgical
DX: E66.01 Morbid (severe) obesity due to excess calories (principal); K59.00 Constipation, unspecified
CPT/HCPCS: 99213

== ENCOUNTER → 2023-05-31 15:14 | Outpatient (BNVA) | payer OTHER, SELFPAY | PROVIDERS: PCP Nurse Practitioner Family; Visit Provider Physician Assistant Surgical | DX: E66.01 Morbid (severe) obesity due to excess calories (principal); K59.00 Constipation, unspecified ==

== ENCOUNTER 2023-06-11 06:09 | Outpatient (REF) | payer OTHER, SELFPAY ==
--- NOTE | ~2023-06-11 | XR_ITS ---
EXAMINATION: XR CHEST CLINICAL INFORMATION: Morbid severe obesity due to excess calories. COMPARISON: 09/25/2020. TECHNIQUE: 2 views of the chest were obtained. FINDINGS: There is no gross pneumothorax. Heart size is normal. Lung volumes are low. No pleural effusion. No focal consolidation to suggest pneumonia. Surgical clips in the upper abdomen. XR/XR chest 2V IMPRESSION: Low lung volumes. No evidence of pneumonia.
== END 2023-06-11 06:10 | disposition home or self-care (01) ==
LOC: HO.XRAY 06:09
PROVIDERS: PCP Nurse Practitioner Family; Visit Provider Physician Assistant Surgical
DX: E66.01 Morbid (severe) obesity due to excess calories (principal)
CPT/HCPCS: 71046

== ENCOUNTER 2023-06-14 09:14 | Outpatient (AMB) | payer OTHER, SELFPAY ==
--- NOTE | 2023-06-14 09:09 | MHC.AMNUTRGE ---
Intake Intake Visit Reasons: TV F/U SWL Allergies No Known Allergies [No Known Allergies*] Allergy (Verified 05/04/23 09:24) HPI Nutrition Presentation Reason for consult elevated BMI Diet Assmnt Details Pt reports following program meal plan provided by PA and doing well . She likes the bars and shakes very much. She has no questions. SWL online classes: 02/02 ; reviewed Dietary counseling reduction Diagnosis Nutrition problem #1 overweight/obesity As related to (etiology) #1 excess energy intake and physical inactivity As evidenced by (sign/symptom) #1 high BMI Monitoring/Goals Nutrition problem monitoring total energy intake, level of knowledge/skill, total PRO intake, total CHO intake, weight and oral fluids Outcome progress progressing Learning/Education Readiness to learn good Stages of change action Educational materials provided Yes Most Recent Diabetes Results: Cholesterol 91 mg/dL (<200) 05/07/23 HDL Cholesterol 33 mg/dL (>40) L 05/07/23 Triglycerides 32 mg/dL (<150) 05/07/23 Creatinine 0.82 mg/dL (0.5-1.4) 05/07/23 Blood Urea Nitrogen 12 mg/dL (9-16) 05/07/23 Sodium 138 mmol/L (135-145) 05/07/23 Potassium 4.0 mmol/L (3.3-5.1) 05/07/23 Chloride 110 mmol/L (96-108) H 05/07/23 Carbon Dioxide 23 mmol/L (22-29) 05/07/23 Calcium 8.9 mg/dL (8.4-10.2) 05/07/23 AST 14 U/L (5-31) 05/07/23 ALT 12 U/L (0-31) 05/07/23 Total Protein 7.6 g/dL (6.5-8.0) 05/07/23 Albumin 3.8 g/dL (3.5-5.0) 05/07/23 COUNTS INCLUDE 234 BEDS AT [facility] Medical History Hypothyroidism Depression GERD (gastroesophageal reflux disease) Pulmonary embolism Epilepsy Morbid obesity Surgical History History of laparoscopic cholecystectomy History of laparoscopic appendectomy Family History Father Coronary artery disease Hypertension Diabetes mellitus Mother Breast cancer Hypertension Daughter No problems noted. Son Asthma Food allergy Son Asthma Food allergy Son Food allergy Asthma Daughter No problems noted. Social History Alcohol intake: current Alcohol intake frequency: holidays/special occasions only Patient Tobacco Use Status: Never used Tobacco Assessment & Plan Assessment & Plan (1) Morbid obesity: Code(s): E66.01 - Morbid (severe) obesity due to excess calories Plan Patient is cleared from a nutrition standpoint for bariatric surgery. Educational requirements have been completed. Reviewed vitamin supplementation and commitment to protein shake for several months post surgery. Encouraged communication with office as needed Telehealth Telehealth Location of provider rendering services: practice address Location of patient: address on file Patient Identification confirmed using: Name, : Yes Telehealth method: video Patient verbally consented to treatment: Yes Patient verbally consented to billing insurance company: Yes Patient informed of any privacy concerns related to visit: Yes Minutes spent on Phone/Video with Pt.: 15 Coding Level of Care Code Nutr Indiv Subseq ([id number]) Diagnoses Morbid obesity E66.01 Time Spent (min) 15
== END 2023-06-14 09:25 | disposition home or self-care (01) ==
LOC: HO.HBS 09:14
PROVIDERS: PCP Nurse Practitioner Family; Visit Provider Dietitian, Registered
DX: E66.01 Morbid (severe) obesity due to excess calories (principal)

== ENCOUNTER → 2023-06-14 09:14 | Outpatient (BNVA) | payer OTHER, SELFPAY | PROVIDERS: PCP Nurse Practitioner Family; Visit Provider Dietitian, Registered | DX: E66.01 Morbid (severe) obesity due to excess calories (principal) | CPT/HCPCS: 97803 ==

== ENCOUNTER 2023-07-08 12:00 | Outpatient (AMB) | payer OTHER, SELFPAY ==
--- NOTE | 2023-07-08 12:08 | A.OFFWM_ITS ---
Intake Intake Visit Reasons: VIDEO BH Intake Allergies No Known Allergies [No Known Allergies*] Allergy (Verified 07/09/23 09:39) PFSH Medical History Hypothyroidism Depression GERD (gastroesophageal reflux disease) Pulmonary embolism Epilepsy Morbid obesity Surgical History History of laparoscopic cholecystectomy History of laparoscopic appendectomy Family History Father Coronary artery disease Hypertension Diabetes mellitus Mother Breast cancer Hypertension Daughter No problems noted. Son Asthma Food allergy Son Asthma Food allergy Son Food allergy Asthma Daughter No problems noted. Social History Alcohol intake: current Alcohol intake frequency: holidays/special occasions only Patient Tobacco Use Status: Never used Tobacco Behavioral Health Assessment Weight Management Therapy Therapy Notes Details PT is a 42 y/o female who presents for intake as part of surgical weight loss program. PT states she wants bariatric surgery to improve her health and a better life. Pt reports she is currently in counseling to manage stress and anxiety, her PCP prescribes her with psych meds, and she feels her Sx are stable and uncer control with current treatment. PT denies any past hospitalization/crisis for behavioral health. Denies any safety concerns around SI and/or self-other harm, also there is no history of substance use reported. There is no evidence for stress/emotional-eating, and scores from BES suggest minimal risk for binge eating behavior. PHQ- scores also showed no active symptoms/concerns with depression. Mental status exam is withing normal limits, suggesting person's functioning is not impaired. At this time patient is cleared from the behavioral health standpoint. Presenting Concerns Referral Source WMP Provider. Reason for referral Completion of behavioral health assessment as part of process for weight-loss surgery. Precipitating Event Obesity. Living Situation Current Living Situation Rent At risk of losing current housing? No Satisfied with current living situation? Yes Comments PT lives with and children. Food/Weight/Diet Expectations of change Goal is to lose 10% of your weight before surgery, which is about 28 lbs. Ultimate weight goal: 251 lbs. before surgery. Today her weight is 263Lbs. History/Relationship with food PT reports she is a big snacked, was eating junk food which is quick and easy to make. . Example of meals before starting the program Breakfast: joe on her way to work. Large ice coffee/sugar/caramel, bagel with koo/egg and hash-browns. Lunch: anything from work. Mozzarella sticks, fries and chicken finger. On Tuesdays, taco salad or burritos. Salad at times. Dinner: Pork/steak, rice, mac and cheese or corn/green beans/steam veggies. On Fridays they used to order pizza and chicken wings or [place] food. And was snacking in between meals. Had Pepsi daily. History/Relationship with weight Was skinny as a kid. Started gaining weight around 2009, then with every kid she had she gained more weight. In past 10 years highest she very been was 280Lbs, lowest 260Lbs. History/Relationship with dieting Herbalife, energy tea, intermittent fasting. Binge Eating Do you frequently eat large amounts of food in short periods of time, not feeling physically hungry? Yes Do you feel out of control when you eat a large amount of food in a short period of time? No Do you eat large amounts of food rapidly and typically alone? No Night Eating Do you wake up at least once during the night to eat? No If you wake up in the night, do you find that it is necessary to eat something in order to fall back asleep? No Do you have little or no appetite in the morning and feel very hungry in the evening, often overeating between dinner and when you go to bed? Yes Social History Family history and relationship . PT has 5 children. She has an oldest daughter who is 22. Parents since she's 15. She has a brother from dad's current relationship. Mom alive, has a sister. Good family relationships. Very close to her mom and sister. Parental/Familial ledge man obligations 15, 13, 7 and has custody of 2 grandkids 3 and 4. Developmental history and status Trouble reading in childhood, had a german tutor but nothing officially diagnosed. Currently WNL. Social support Sister, , mother. Community support None Pentecostal/Spirituality Caodaism. Goes to muslim on a regular basis. Cultural/Ethnic information -[place]. Legal Involvement and History Current or historical involvement with the legal system? None reported. 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 ) Interested in further educational program? 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 No Meaningful activities reading, bowling, home chores, family activities. Financial Situation Describe current financial situation Comfortable Financial assistance? None Service Service? No Mental Health and Addiction Treatment Current/Past substance abuse? No Current/Past addictive behavior concerns? No Psychiatric history PT has a therapist who she sees weekly at [facility]. Her PCP prescribes with Wellbutrin 150mg 2 at day and, Lexapro 10mg (just started). Meds are for anxiety. Denies any crisis or past hospitalizations for MH. There is no HX of safety concerns around self/other-harm. Medical and Physical Health Summary Additional Medical History not covered in history None reported. Sexual History concerns None reported. Physical exam in the last year? Yes Pain Screening Current pain? No Pain in the last few months? Yes (hip pain.) Medications Is the patient compliant with medications? Yes Does the patient have Dietrich Guardian in place? Not applicable Does the patient use complimentary health approaches? No Trauma/Abuse History History of trauma? No Questionnaires PHQ-9 Over the last 2 weeks, how often have you been bothered by any of the following problems? 1. Little interest or pleasure in doing things: not at all 2. Feeling down, depressed, or hopeless: not at all 3. Trouble falling or staying asleep, or sleeping too much: not at all 4. Feeling tired or having little energy: not at all 5. Poor appetite or overeating: not at all 6. Feeling bad about yourself - or that you are a failure or have let yourself or your family down: not at all 7. Trouble concentrating on things, such as reading the newspaper or watching television: not at all 8. Moving or speaking so slowly that other people could have noticed. Or the opposite - being so fidgety or restless that you have been moving around a lot more than usual: not at all 9. Thoughts that you would be better off or of hurting yourself in some way: not at all Total score: 0 Depression Screening Interpretation: Negative Depression Screening Done: Yes 12694 - PHQ-9 Billing: Yes Source: Developed by Drs. Clinton Fairchild, Mary Clements, Shayne Garcia and colleagues, with an educational michelle from [employer]. Binge Eating Scale Group 1 A. I don't feel self-conscious about my wt. or body size when I'm with others. B. I feel concerned about how I look to others, but it normally does not make me fell disappointed with myself C. I do get self-conscious about my appearance and wt. which makes me feel di sappointed in myself. D. I feel very self-conscious about my wt. and frequently I feel intense shame and disgust for myself. I try to avoid social contacts because of my self- consciousness. Response Group 1: A Group 2 A. I don't have any difficulty eating slowly in the proper manner. B. Although I seem to gobble down foods, I don't end up feeling stuffed because of eating to much. C. At times, I tend to eat quickly and then, I feel uncomfortably full afterwards. D. I have the habit of bolting down my food, without really chewing it. When this happens I usually feel uncomfortably stuffed because I've eaten to much. Response Group 2: A Group 3 A. I feel capable to control my eating urges when I want to. B. I feel like I have failed to control my eating more than the average person. C. I feel utterly helpless when it comes to feeling in control of my eating urges. D. Because I feel so helpless about controlling my eating I have become very desperate about trying to get control. Response Group 3: A Group 4 A. I don't have the habit of eating when I'm bored. B. I sometimes eat when I'm bored, but often I'm able to get busy and get my mind off food. C. I have a regular habit of eating when I'm bored, but occasionally, I can use some other activity to get my mind off eating. D. I have a strong habit of eating when I'm bored. Nothing seems to help me breath the habit. Response Group 4: B Group 5 A. I'm usually physically hungry when I eat something. B. Occasionally, I eat something on impulse even though I really am not hungry. C. I have the regular habit of eating foods, that I might not really enjoy, to satisfy a hungry feeling even though physically, I don't need the food. D. Although I'm not physically hungry, I get a hungry feeling in my mouth that only seems to be satisfied when I eat a food, like sandwich, that fills my mouth. Sometimes, when I eat the food to satisfy my mouth hunger, I then spit the food out so I won't gain weight. Response Group 5: B Group 6 A. I don't feel any guilt or self-hate after I overeat. B. After I overeat, occasionally I feel guilt or self-hate. C. Almost all the time I experience strong guilt or self-hate after I overeat. Response Group 6: B Group 7 A. I don't lose total control of my eating when dieting even after periods when I overeat. B. Sometimes when I eat a forbidden food on a diet, I feel like I blew it and eat even more. C. Frequently, I have the habit of saying to myself, I've blown it now, why not go all the way, when I overeat on a diet. When that happens I eat more. D. I have a regular habit of starting a strict diets for myself but I break the diets by going on an eating binge. My life seems to be either a feast or famine. Response Group 7: B Group 8 A. I rarely eat so much food that I feel uncomfortably stuffed afterwards. B. Usually about once a month, I each such a quantity of food, I end up feeling very stuffed. C. I have regular periods during the month when I eat large amounts of food, either at mealtime or at snacks. D. I eat so much food that I regularly feel quite uncomfortable after eating and sometimes a bit nauseous. Response Group 8: B Group 9 A. My level of calorie intake does not go up very high or go down very low on a regular basis. B. Sometimes after I overeat, I will try to reduce my caloric intake to almost nothing to compensate for the excess calories I've eaten. C. I have a regular habit of overeating during the night. It seems that my routine is not to be hungry in the morning but overeat in the evening. D. In my adult years, I have had week-long periods where I practically starve myself. This follows periods when I overeat. It seems I live a life of either feast or famine. Response Group 9: A Group 10 A. I usually am able to stop eating when I want to. I know when enough is enough. B. Every so often, I experience a compulsion to eat which I can't seem to control. C. Frequently, I experience strong urges to eat which I seem unable to control, but at other times I can control my eating urges. D. I feel incapable of controlling urges to eat. I have a fear of not being able to stop eating voluntarily. Response Group 10: A Group 11 A. I don't have any problem stopping eating when I feel full. B. I usually can stop eating when I feel full but occasionally overeat leaving me feeling uncomfortably stuffed. C. I have a problem stopping eating once I start and usually I feel uncomfortably stuffed after I eat a meal. D. Because I have a problem not being able to stop eating when I want, I sometimes have to induce vomiting to relieve my stuffed feeling. Response Group 11: A Group 12 A. I seem to eat just as much when I'm with others, Family social gatherings as when I'm by myself. B. Sometimes, when I'm with other persons, I don't eat as much as I want to eat because I'm self-conscious about my eating. C. Frequently, I eat only a small amount of food when others are present, because I'm very embarrassed about my eating. D. I feel so ashamed about overeating that I pick times to overeat when I know no one will see me. I feel like a closet eater. Response Group 12: A Group 13 A. I eat three meals a day with only an occasional between meal snack. B. I eat 3 meals a day, but I also normally snack between meals. C. When I am snacking heavily, I get in the habit of skipping regular meals. D. There are regular periods when I seem to be continually eating, with no planned meals. Response Group 13: A Group 14 A. I don't think much about trying to control unwanted eating urges. B. At least some of the time, I feel my thoughts are pre-occupied with trying to control my eating urges. C. I feel that frequently I spend much time thinking about how much I ate or about trying not to eat anymore. D. It seems to me that most of my waking hours are pre-occupied by thoughts about eating or not eating. I feel like I'm constantly struggling not to eat. Response Group 14: A Group 15 A. I don't think about food a great deal. B. I have strong craving for food but they last only for brief periods of time. C. I have days when I can't seem to think about anything else but food. D. Most of my days seem to be pre-occupied with thoughts about food. I feel like I live to eat. Response Group 15: A Group 16 A. I usually know whether or not I'm physically hungry. I take the right portion of food to satisfy me. B. Occasionally, I feel uncertain about knowing whether or not I'm physically hungry. A these times it's hard to know how much food I should take to satisfy me. C. Even though I might know how many calories I should eat, I don't have any idea what is a normal amount of food for me. Response Group 16: A Binge Eating Score: 5 Score less than 17 Minimal Risk Score between 18-26 Moderate Risk Score between 27-46 High Risk Assessment & Plan Assessment & Plan (1) Adjustment disorder with anxiety: Code(s): F43.22 - Adjustment disorder with anxiety Plan PT is cleared from BH standpoint. She doesn't need to follow up with me before surgery unless she feels in need to have a session for support. PT has been advised of available resources, she has expressed her commitment with program and she was reminded of importance to have close communication with office and keep appointments with providers, as well of following up program expectations. She has been advised to follow up with me post-op for f/up and support. Telehealth Telehealth Location of provider rendering services: other Location of patient: address on file (At work in [place], [place].) Patient Identification confirmed using: Name, : Yes Telehealth method: video Patient verbally consented to treatment: Yes Patient verbally consented to billing insurance company: Yes Patient informed of any privacy concerns related to visit: No Minutes spent on Phone/Video with Pt.: 60 Coding Level of Care Code New Pt Tele Psytx >53 mins (34202) Patient Type New Diagnoses Adjustment disorder with anxiety F43.22 Time Spent (min) 60
--- OUTSIDE RECORDS SUMMARY | 2023-07-08 12:41 | XMS_ITS | Continuity of Care Document ---
Author Name Unknown Organization [facility] Address [address] [place] [address]- Care Team Providers Care Last Repairer Helper Name Role Phone Lori Cervantes NP Primary Care Physician Encounter [facility] [place] Date(s): 06/29/23 - 07/06/23 [facility] [address] [place] [id number]- Encounter Diagnosis Bipolar 1 disorder, manic, mild(Discharge Diagnosis) - 06/30/23 Attending Physician: Lori Cervantes NP Allergies, Adverse Reactions, Alerts Substance Reaction Severity Status papaya Active Bee Stings Active Immunizations Given and Recorded Vaccine Date Status Refusal Reason SARS-CoV-2(COVID-19)mRNA-LNP vac([id number]) 04/27/23 Recorded influenza virus vaccine, inactivated 04/16/23 Saad rded influenza virus vaccine, inactivated 04/25/21 Saad rded influenza virus vaccine, inactivated 03/25/21 Saad rded influenza virus vaccine, inactivated 04/17/20 Saad rded influenza virus vaccine, inactivated 1 04/13/16 Gi luna influenza virus vaccine, inactivated 03/13/15 Saad rded influenza virus vaccine, inactivated 04/28/13 Saad rded influenza virus vaccine, inactivated 03/18/10 Saad rded influenza virus vaccine, inactivated 03/26/09 Saad rded Influenza Virus Vaccine (oldterm) 04/10/22 Recorde d Influenza Virus Vaccine (oldterm) 04/16/20 Recorde d SARS-CoV-2 (COVID-19) mRNA BNT-162b2 vac 05/16/21 Recorded SARS-CoV-2 (COVID-19) mRNA BNT-162b2 vac 08/14/20 Recorded SARS-CoV-2 (COVID-19) mRNA BNT-162b2 vac 07/24/20 Recorded pneumococcal 23-valent vaccine 10/09/16 Given tetanus/diphtheria/pertussis, acel(Tdap) [...] 9:04:00 EDT, Aerosol, Route to Pharmacy Electronically, [id number], [facility], 175, cm, 01/11/23 12:44:00 EDT, H... Start Date: 03/17/23 Stop Date: 04/16/23 Status: Ordered Compression Stockings See Instructions, # 2 each, Refills 2, Tot. Refills 2, Maintenance, surgical, knee length 20-30 mm Hg, 06/23/21 8:35:00 EST, Supply Start Date: 06/23/21 Status: Ordered Eliquis 2.5 mg oral tablet 1 tablet = 2.5 mg, By Mouth, 2 times a day, # 180 tablet, 3 Refills, Maintenance, 08/20/22 15:48:00EST, Tablet, [facility] 1965, Partial fill upon patient request if the prescription is for a schedule II opioid drug., 175.5, cm, 08/14/22 15:05:... Start Date: 08/20/22 Status: Ordered furosemide 20 mg oral tablet 1, tablet, By Mouth, Daily, # 90 tablet, Refills 0, Tot. Refills 0, Maintenance, 01/01/23 16:49:00 EDT, Route to Pharmacy Electronically, [facility] 1965, 175, cm, 01/01/23 16:45:00 EDT, Height, 126, kg, 09/03/22 22:49:00 EST, Dry Weight Start Date: 01/01/23 Stop Date: 04/01/23 Status: Ordered levETIRAcetam 1000 mg oral tablet 1 tablet = 1,000 mg, By Mouth, 2 times a day, # 60 tablet, 11 Refills, Maintenance, 12/24/22 8:37:00 EDT, Tablet, [facility] 1967, Partial fill upon patient request, 175, cm, 12/17/22 11:21:00 EDT, Height, 126, kg, 09/03/22 22:49:00 EST, Dry Weight Start Date: 12/24/22 Stop Date: 12/19/23 Status: Ordered Lexapro 10 mg oral tablet 1 tablet = 10 mg, By Mouth, Daily, 0mg daily x 7 days then increase to 20mg, # 7 tablet, 0 Refills,Maintenance, 06/29/23 16:47:00 EST, [facility] 1965, Partial fill upon patient request if theprescription is for a schedule II opioid drug., 175... Start Date: 06/29/23 Stop Date: 07/06/23 Status: Ordered Lexapro 20 mg oral tablet 1 tablet = 20 mg, By Mouth, Daily, # 30 tablet, 0 Refills, Maintenance, 06/29/23 16:48:00 EST, [facility], Partial fill upon patient request if the prescription is for a schedule II opioiddrug., 175, cm, 06/29/23 15:47:00 EST, Height, 126,... Start Date: 06/29/23 Status: Ordered MiraLax oral powder for reconstitution = 17 Gm, By Mouth, Daily, dissolve in water before taking, # 527 Gm, 0 Refills, Maintenance, 09/03/22 23:10:00 EST, REC Powder, [facility], Partial fill upon patient request [...] opioid drug. Start Date: 04/01/23 Status: Ordered traZODone 50 mg oral tablet 50 mg, 1, tablet, By Mouth, Daily at bedtime, PRN, # 30 tablet, Refills 0, Tot. Refills 0, Maintenance, Insomnia, 06/29/23 16:47:00 EST, Route to Pharmacy Electronically, [facility], Partial fill upon patient request if the prescription is... Start Date: 06/29/23 Stop Date: 07/29/23 Status: Ordered Problem List Condition Confirmation Course [...] Confirmed 1998 Active Urge incontinence Confirmed Active Diagnosis Diagnosis Type Effective Dates Health Status Cl inical Service Informant Bipolar 1 disorder, manic, mild Discharge Diagnosis 06/30/23 Vital Signs Most recent to oldest [Reference Range]: 1 Height 175 cm (06/29/23 3:47 PM) Social History Social History Type Response Smoking Status Never smoker entered on: 12/05/15 Sex Female Patient Care team information Care Team Personnel Name: Cecilio Cornejo RN Position: [facility] RN Member Role: Primary Care Nurse Name: Lori Cervantes NP Position: [facility] PCO Associate Professional Member Role: PCP Address: Address: [address] [place] [phone]- Name: Scotty Sosa RN Position: [facility] RN Member Role: Primary Care Nurse Name: Nelson Moscoso RN Position: [facility] ED RN W/OE and Tasks Member Role: Primary Care Nurse Name: Fiona Gillis RN Position: [facility] SN RN Member Role: Primary Care Nurse Name: Eve Roy RN Position: [facility] RN Member Role: Primary Care Nurse Care Team Related Persons Name: BRAD DOMINGO Address: home [address] [place] [address] Name: JOSE L MARCELPAT Address: home [address] [place] [address] Name: DAMION MENARD Address: [place] [address]
== END 2023-07-08 13:00 ==
PROVIDERS: PCP Nurse Practitioner Family; Visit Provider Counselor Mental Health
DX: F43.22 Adjustment disorder with anxiety (principal)
CPT/HCPCS: 90837

== ENCOUNTER → 2023-07-08 12:00 | Outpatient (BNVA) | payer OTHER, SELFPAY | PROVIDERS: PCP Nurse Practitioner Family; Visit Provider Counselor Mental Health ==

== ENCOUNTER → 2023-07-09 09:02 | Outpatient (REF) | payer OTHER, SELFPAY ==
--- NOTE | 2023-07-09 09:06 | ECG_ITS ---
Test Reason : E66.01 Blood Pressure : / mmHG Vent. Rate : 088 BPM Atrial Rate : 088 BPM P-R Int : 152 ms QRS Dur : 088 ms QT Int : 358 ms P-R-T Axes : 055 011 025 degrees QTc Int : 433 ms Normal sinus rhythm Normal ECG When compared with ECG of 25-SEP-2020 09:57, No significant change was found Referred By: Jacques Garland Electronically Signed By:OKSANA CLEMENS MD
== END ==
LOC: HO.CARD 09:02
PROVIDERS: PCP Nurse Practitioner Family; Visit Provider Physician Assistant Surgical
DX: E55.9 Vitamin D deficiency, unspecified (principal); E66.01 Morbid (severe) obesity due to excess calories; E50.9 Vitamin A deficiency, unspecified
CPT/HCPCS: 93005; 99212

== ENCOUNTER → 2023-07-09 09:06 | Outpatient (BNV) | payer OTHER, SELFPAY | PROVIDERS: PCP Nurse Practitioner Family; Visit Provider Internal Medicine Cardiovascular Disease | DX: E66.01 Morbid (severe) obesity due to excess calories (principal) | CPT/HCPCS: 93010 ==

== ENCOUNTER 2023-07-09 09:24 | Outpatient (AMB) | payer OTHER, SELFPAY ==
--- NOTE | 2023-07-09 09:37 | MHC.NURWM ---
Intake Intake Visit Reasons: TV F/U SWL Allergies No Known Allergies [No Known Allergies*] Allergy (Verified 05/04/23 09:24) Coding
--- NOTE | 2023-07-09 09:40 | A.OFFVIS_ITS ---
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 Allergies No Known Allergies [No Known Allergies*] Allergy (Verified 07/09/23 09:39) Medication List - Last Reconciled 07/09/23 by BRITTANY Nathan apixaban (Eliquis) 5 mg PO BID bisacodyl (Dulcolax (bisacodyl)) 10 mg LA DAILY PRN bupropion HCl (Wellbutrin SR) 150 mg PO BID cholecalciferol (vitamin D3) 125 mcg PO DAILY 90 days escitalopram oxalate 20 mg PO DAILY iron,carbonyl-vitamin C 65 mg iron- 125 mg (Vitron-C) 1 tab PO DAILY 90 days levetiracetam (Keppra) 1,000 mg PO BID sennosides (senna) 17.2 mg (2 x 8.6 mg) PO BEDTIME PRN vitamin A palmitate 3,000 mcg PO DAILY 60 days HPI HPI Comments History of Present Illness Details The patient is a pleasant 42 year old female who returns to the clinic for pre-operative surgical weight loss management. They were last seen in the office on 05/31/23, recorded weight at that time was 278 pounds, with a BMI of 41. Today's weight is 261.6 pounds and BMI is 38.6. There has been a weight loss of 17.8 pounds since initiating the surgical weight loss program on 05/14/23 with a total body weight loss of 6.3 %. Pre op work up completed as follows: SWL classes:? 10/03 BH appts: 07/08/23-cleared? RD appts: cleared-06/14/23 Labs: 05/07/23-low A, D, mild iron def anemia H. pylori: 05/19/23-neg CXR: 06/23/23-nad EK07/09/23-normal ABD U/S: 07/28/23 UGI: 07/23/23 The patient reports constipation has resolved. She states that she has a history of pulmonary embolism while about 7 or 8 years ago. She is followed by Dr. Miller of Hematology at [facility]. I requested that she call their office to determine if she in fact does still need to be on Eliquis and if during bariatric surgery that can be discontinued or she needs to have bridge with Lovenox. She will fax this note to us once available. Current meal plan includes: 1 celebrate rebuild shake ([facility] [employer], [employer], [employer]), (2 scoops in 20 oz unsweetened almond milk) at 6am-8am 2 protein bars ([facility] [employer], [employer], [employer]) First bar at 9am-11am. Second bar at 1pm-3pm Dinner at 6pm (10 forks of protein and 10 forks of salad/vegetables). Drinking 64 oz of water Current exercise plan includes: Treadmill, 300 calories typically 5 days per week eliptical, 150 johan PFSH Medical History Hypothyroidism Depression GERD (gastroesophageal reflux disease) Pulmonary embolism Epilepsy Morbid obesity Surgical History History of laparoscopic cholecystectomy History of laparoscopic appendectomy Family History Father Coronary artery disease Hypertension Diabetes mellitus Mother Breast cancer Hypertension Daughter No problems noted. Son Asthma Food allergy Son Asthma Food allergy Son Food allergy Asthma Daughter No problems noted. Social History Alcohol intake: current Alcohol intake frequency: holidays/special occasions only Patient Tobacco Use Status: Never used Tobacco Physical Exam Const General: healthy appearing and no acute distress Resp Effort & Inspection: normal respiratory effort Auscultation: clear to auscultation bilaterally Cardio Rate: regular rate Rhythm: regular rhythm GI Auscultation: normal bowel sounds Extrem General: Yes normal to inspection Assessment & Plan Assessment & Plan (1) Morbid obesity: Code(s): E66.01 - Morbid (severe) obesity due to excess calories Plan: Patient is making good progress. She will continue with the additional days at the gym. She will continue her current meal plan. Will have her return to the office for a phone call follow-up in approximately 3-4 weeks. Coding Level of Care Code Est Pt Level 3 (21896) Diagnoses Morbid obesity E66.01 Time Spent (min) 22
[2023-07-09 09:45] VITALS: BP 136/78; PULSE 104; TEMP 36.1; O2SAT 100; BMI 38.6
== END 2023-07-09 10:08 | disposition home or self-care (01) ==
PROVIDERS: PCP Nurse Practitioner Family; Visit Provider Physician Assistant Surgical
DX: E66.01 Morbid (severe) obesity due to excess calories (principal); Z68.38 Body mass index [BMI] 38.0-38.9, adult
CPT/HCPCS: 99212

== ENCOUNTER 2023-07-23 10:12 | Outpatient (REF) | payer OTHER, SELFPAY ==
--- NOTE | ~2023-07-23 | FL_ITS ---
EXAMINATION: XR FLUOROSCOPY UPPER GI WITH AIR CLINICAL INFORMATION: Preop evaluation prior to bariatric surgery COMPARISON: Upper GI 09/2020 TECHNIQUE: Fluoroscopic air contrast upper GI examination was performed utilizing standard techniques with thin and thick barium and effervescent granules. Numerous spot images were obtained. FINDINGS: Dual and single contrast images of the esophagus demonstrate normal caliber, contour, and mucosal pattern. No evidence of stricture, mass, or ulcerations identified. Esophageal peristalsis was normal. There is mild narrowing of the GE junction that may represent achalasia. No evidence of hiatus hernia identified. No significant gastroesophageal reflux was seen during the course of the examination and on reflux views. Dual contrast and single contrast images of the stomach demonstrated a normal contour. There are a few tiny areas of contrast pooling in the fundus and body the stomach that may represents small tiny ulcers. And no evidence of mass or other abnormality. Contrast freely passed into the gastric antrum and duodenal bulb without delay. Single and air-contrast images of the duodenal bulb demonstrate no abnormality. The duodenal sweep has a normal appearance, course, and mucosal fold appearance. No malrotation. The imaged proximal jejunum has a normal fold pattern and caliber. There are cholecystectomy clips. FLUOROSCOPY TIME: 4 minutes 1 second Number of Spot Images: 7 Number of Cine: 10 DOSE AREA PRODUCT: 3607 uGy-m2 (microgray-meter squared) FL/FL upper GI w air IMPRESSION: 1. Mild narrowing of the GE junction that may represent mild achalasia 2. Few tiny areas of contrast pooling in the fundus and body of the stomach that may represent tiny ulcers. Recommend correlation with EGD. This procedure was performed by Jorge Malin PA-C, and supervised by Dr. Matias
== END 2023-07-23 10:13 | disposition home or self-care (01) ==
LOC: HO.XRAY 10:12
PROVIDERS: PCP Nurse Practitioner Family; Visit Provider Physician Assistant Surgical
DX: E66.01 Morbid (severe) obesity due to excess calories (principal); E50.9 Vitamin A deficiency, unspecified; E55.9 Vitamin D deficiency, unspecified
CPT/HCPCS: 74246

== ENCOUNTER → 2023-07-23 10:14 | Outpatient (BNV) | payer OTHER, SELFPAY | PROVIDERS: PCP Nurse Practitioner Family; Visit Provider Radiology Diagnostic Radiology | DX: Z01.818 Encounter for other preprocedural examination (principal) | CPT/HCPCS: 74246 ==

== ENCOUNTER 2023-07-28 09:28 | Outpatient (REF) | payer OTHER, SELFPAY ==
--- NOTE | ~2023-07-28 | US_ITS ---
EXAMINATION: US COMPLETE ABDOMEN WITH LIVER ELASTOGRAPHY CLINICAL INFORMATION: Obesity. COMPARISON: Abdominal ultrasound with elastography dated 10/02/2020. TECHNIQUE: Real-time imaging of the abdominal viscera. Noninvasive ultrasound liver fibrosis assessment is performed using Adithya ElastPQ point quantification shear wave elastography (2D-SWE) with a C5-2 MHz transducer. Multiple elastography samples are obtained. FINDINGS: PANCREAS: Normal. The visualized pancreatic head and body are normal in appearance. The remainder of the pancreas is obscured from visualization by the overlying bowel gas. ABDOMINAL AORTA: The proximal, middle, and distal aortic segments are normal in caliber. INFERIOR VENA CAVA: Visualized portions are normal. LIVER: Normal. The liver demonstrates normal size, contour and echogenicity. No focal lesion or intrahepatic biliary duct dilatation. The right lobe measures 16.1 cm in length. The left lobe measures 11.1 cm in length. Portal flow is towards the liver (hepatopetal). Shear wave liver elastography median stiffness is 1.64 m/s (reference: normal median stiffness is 1.3 m/s or less). IQR/median stiffness to assess sampling precision is 0.13 (reference: good quality data set is IQR/median stiffness of 0.15 or less). GALLBLADDER: Normal. The gallbladder is physiologically distended without evidence of stones, sludge, polyps, wall thickening or pericholecystic fluid. COMMON BILE DUCT: Normal in caliber measuring 0.5 cm in diameter. RIGHT KIDNEY: Normal. No hydronephrosis. No renal calculi or focal parenchymal lesions. The kidney measures 12.5 cm in maximum dimension. LEFT KIDNEY: Normal. No hydronephrosis. No renal calculi or focal parenchymal lesions. The kidney measures 11.6 cm in maximum dimension. SPLEEN: Normal. The spleen measures 9.6 cm in maximum dimension. FREE FLUID: None. US/US abdomen comp w elastography IMPRESSION: Liver elastography: In the absence of other known clinical signs, measurements rule out compensated advanced chronic liver disease. If there are known clinical signs, further testing may be needed for confirmation. When compared with prior exam, there is a statistically significant increase in liver stiffness (increase at least 10%). REFERENCE: Society of Radiologists in Ultrasound Liver Stiffness Thresholds (2020): LIVER STIFFNESS THRESHOLDS: *Liver Stiffness equal or less than 1.3 m/s: High probability of being normal. *Liver Stiffness less than 1.7 m/s: In the absence of other known clinical signs, rules out compensated advanced chronic liver disease. *Liver Stiffness 1.7-2.1 m/s: Suggestive of compensated advanced chronic liver disease but need further test for confirmation. *Liver Stiffness over 2.1 m/s: Rules in compensated advanced chronic liver disease. *Liver Stiffness over 2.4 m/s: Suggestive of clinically significant portal hypertension. QUALITY OF DATA SET: *IQR/Median value equal or less than 0.15 implies a quality data set. *IQR/Median value over 0.15 implies a poor quality data set. SIGNIFICANT CHANGE FROM PRIOR EXAM: Significant change if liver stiffness measurement is 10% or greater from prior exam. OTHER CONSIDERATIONS: The stage of liver fibrosis may be overestimated in the setting of acute hepatitis, liver inflammation, elevated liver function tests, hepatic vascular congestion, obstructive cholestasis, non-fasting state, and infiltrative diseases such as amyloidosis and lymphoma. In some patients with NAFLD, the liver stiffness thresholds for compensated advanced chronic liver disease may be lower. In causes other than viral hepatitis and NAFLD, liver stiffness thresholds are not well established.
== END 2023-07-28 09:29 | disposition home or self-care (01) ==
LOC: HO.US 09:28
PROVIDERS: PCP Nurse Practitioner Family; Visit Provider Physician Assistant Surgical
DX: E66.01 Morbid (severe) obesity due to excess calories (principal); E50.9 Vitamin A deficiency, unspecified; E55.9 Vitamin D deficiency, unspecified
CPT/HCPCS: 76700; 76981

== ENCOUNTER → 2023-08-06 08:30 | Outpatient (BNVA) | payer OTHER, SELFPAY | PROVIDERS: PCP Nurse Practitioner Family; Visit Provider Physician Assistant Surgical ==

== ENCOUNTER 2023-08-10 10:13 | Outpatient (AMB) | payer OTHER, SELFPAY ==
[2023-08-10 09:43] VITALS: BMI 38.5
--- NOTE | 2023-08-10 09:43 | A.OFFVIS_ITS ---
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 Allergies No Known Allergies [No Known Allergies*] Allergy (Verified 07/09/23 09:39) Medication List - Last Reconciled 08/10/23 by BRITTANY Nathan apixaban (Eliquis) 5 mg PO BID bisacodyl (Dulcolax (bisacodyl)) 10 mg MO DAILY PRN bupropion HCl (Wellbutrin SR) 150 mg PO BID cholecalciferol (vitamin D3) 125 mcg PO DAILY 90 days escitalopram oxalate 20 mg PO DAILY iron,carbonyl-vitamin C 65 mg iron- 125 mg (Vitron-C) 1 tab PO DAILY 90 days levetiracetam (Keppra) 1,000 mg PO BID sennosides (senna) 17.2 mg (2 x 8.6 mg) PO BEDTIME PRN vitamin A palmitate 3,000 mcg PO DAILY 60 days HPI HPI Comments History of Present Illness Details The patient is a pleasant 42 year old female who returns to the clinic for pre-operative surgical weight loss management. They were last seen in the office on 07/09/23, recorded weight at that time was 261.6 pounds, with a BMI of 38.6. Today's weight is 261 pounds and BMI is 38.5. There has been a weight loss of 18.4 pounds since initiating the surgical weight loss program on 05/14/23 with a total body weight loss of 6.5 %. Pre op work up completed as follows: SWL classes:? 10/03 BH appts: 07/08/23-cleared? RD appts: cleared-06/14/23 Labs: 05/07/23-low A, D, mild iron def anemia H. pylori: 05/19/23-neg CXR: 06/23/23-nad EK07/09/23-normal ABD U/S: 07/28/23-fatty liver UGI: 07/23/23-mild ge junction narrowing The patient reports constipation has resolved. She continues to be bloated and had chips yesterday with salt and she has retained water. She states that she has a history of pulmonary embolism while about 7 or 8 years ago. She is followed by Dr. Miller of Hematology at [facility]. She has her appointment today at 3 pm I requested that she call their office to determine if she in fact does still need to be on Eliquis and if during bariatric surgery that can be discontinued or she needs to have bridge with Lovenox. She will fax this note to us once available. Current meal plan includes: 1 celebrate rebuild shake ([facility] gift shop), (2 scoops in 20 oz unsweetened almond milk) at 6am-8am 2 protein bars ([employer] bars at [facility] gift shop) First bar at 9am-11am. Second bar at 1pm-3pm Dinner at 6pm (10 forks of protein and 10 forks of salad/vegetables). Drinking 64 oz of water Current exercise plan includes: no exercise so far this week Treadmill, 300 calories typically 5 days per week elliptical, 150 johan PFSH Medical History Hypothyroidism Depression GERD (gastroesophageal reflux disease) Pulmonary embolism Epilepsy Morbid obesity Surgical History History of laparoscopic cholecystectomy History of laparoscopic appendectomy Family History Father Coronary artery disease Hypertension Diabetes mellitus Mother Breast cancer Hypertension Daughter No problems noted. Son Asthma Food allergy Son Asthma Food allergy Son Food allergy Asthma Daughter No problems noted. Social History Alcohol intake: current Alcohol intake frequency: holidays/special occasions only Patient Tobacco Use Status: Never used Tobacco Assessment & Plan Assessment & Plan (1) Obesity: Code(s): E66.9 - Obesity, unspecified Plan: Pt was able to identify what caused set backs to her weight loss (chips, decreased exercise, bloating). Now will exercise more and goal is 7-9 pound loss in the next 3 weeks. RTC 3 weeks and if continued progress will refer to Dr Turner for continued pre-op planning Telehealth Telehealth Location of provider rendering services: practice address Location of patient: other Patient Identification confirmed using: Name, : Yes Telehealth method: voice only Patient verbally consented to treatment: Yes Patient verbally consented to billing insurance company: Yes Patient informed of any privacy concerns related to visit: Yes Minutes spent on Phone/Video with Pt.: 12 Coding Level of Care Code Tele Est Pt Level 3 (73195) Diagnoses Obesity E66.9 Time Spent (min) 18
--- OUTSIDE RECORDS SUMMARY | 2023-08-10 10:23 | XMS_ITS | Continuity of Care Document ---
Author Name Unknown Organization [facility] Adult Address [address] [place] [address]- Care Team Providers Care Supervisor [employer] Name Role Phone Lori Cervantes NP Primary Care Physician [phone] Encounter [facility] Date(s): 07/30/23 - 08/06/[address] [address]- Encounter Diagnosis Elevated blood pressure reading(Discharge Diagnosis) - 07/30/23 Annual visit for general adult medical examination with abnormal findings (Discharge Diagnosis) - 07/30/23 Epilepsy(Discharge Diagnosis) - 07/30/23 Severe obesity (BMI 35.0-39.9) with comorbidity(Discharge Diagnosis) - 07/30/23 Bipolar 1 disorder, manic, mild(Discharge Diagnosis) - 07/30/23 Anxiety and depression(Discharge Diagnosis) - 07/30/23 History of blood clots(Discharge Diagnosis) - 07/30/23 Insomnia(Discharge Diagnosis) - 07/30/23 Attending Physician: Lori Cervantes NP Allergies, Adverse Reactions, Alerts Substance Reaction Severity Status papaya Active Bee Stings Active Immunizations Given and Recorded Vaccine Date Status Refusal Reason SARS-CoV-2(COVID-19)mRNA-LNP vac([id number]) 04/27/23 Recorded influenza virus vaccine, inactivated 04/16/23 [...] Comment: HEPATITIS B TITER- POSITIVE + Medications Compression Stockings See Instructions, # 2 each, Refills 2, Tot. Refills 2, Maintenance, surgical, knee length 20-30 mm Hg, 06/23/21 8:35:00 EST, Supply Start Date: 06/23/21 Status: Ordered Eliquis 2.5 mg oral tablet 1 tablet = 2.5 mg, By Mouth, 2 times a day, # 180 tablet, 3 Refills, Maintenance, 08/20/22 15:48:00EST, Tablet, [facility], Partial fill upon patient request if the prescription is for a schedule II opioid drug., 175.5, cm, 08/14/22 15:05:... Start Date: 08/20/22 Status: Ordered furosemide 20 mg oral tablet 1, tablet, By Mouth, Daily, # 90 tablet, Refills 0, Tot. Refills 0, Maintenance, 01/01/23 16:49:00 EDT, Route to Pharmacy Electronically, [facility], 175, cm, 01/01/23 16:45:00 EDT, Height, 126, kg, 09/03/22 22:49:00 EST, Dry Weight Start Date: 01/01/23 Stop Date: 04/01/23 Status: Ordered levETIRAcetam 1000 mg oral tablet 1 tablet = 1,000 mg, By Mouth, 2 times a day, # 60 tablet, 11 Refills, Maintenance, 12/24/22 8:37:00 EDT, Tablet, [facility], Partial fill upon patient request, 175, cm, 12/17/22 11:21:00 EDT, Height, 126, kg, 09/03/22 22:49:00 EST, Dry Weight Start Date: 12/24/22 Stop Date: 12/19/23 Status: Ordered Lexapro 20 mg oral tablet 1 tablet = 20 mg, By Mouth, Daily, # 90 tablet, 3 Refills, Maintenance, 08/03/23 12:52:00 EST, [facility], Partial fill upon patient request if the prescription is for a schedule II opioiddrug., 175, cm, 07/30/23 16:40:00 EST, Height, 126,... Start Date: 08/03/23 Stop Date: 07/28/24 Status: Ordered MiraLax oral powder for reconstitution = 17 Gm, By Mouth, Daily, dissolve in water before taking, # 527 Gm, 0 Refills, Maintenance, 09/03/22 23:10:00 EST, REC Powder, [facility], Partial fill upon patient [...] 06/29/23 16:47:00 EST, [facility] to [facility], Partial fill upon patient request if the prescription is... Start Date: 06/29/23 Stop Date: 07/29/23 Status: Ordered Ventolin HFA 108 mcg/inh inhalation aerosol with adapter 2 puffs, Inhalation, Every 4 hours, PRN NEEDED FOR WHEEZING, # 18 Gm, 0 Refills, Maintenance, 07/27/23 16:41:00 EST, [facility], 175, cm, 06/29/23 15:47:00 EST, Height, 126, kg, 09/03/22 22:49:00 EST, Dry Weight Start Date: 07/27/23 Status: Ordered Problem List Condition Confirmation Course Effective Dates Status H ealth Status Informant Hypothyroidism (acquired) Confirmed 12/29/15 Active ADHD Confirmed Active Bilateral hearing loss Confirmed Active Epilepsy Confirmed Active History of blood clots Confirmed Active Menorrhagia Confirmed Active Bipolar 1 disorder, manic, mild Confirmed 09/28/15 Active Anxiety and depression Confirmed Active Severe obesity Confirmed Active Severe obesity (BMI 35.0-39.9) with comorbidity Confirmed Active Thalassemia syndrome Confirmed 1998 Active Urge incontinence Confirmed Active Diagnosis Diagnosis Type Effective Dates Health Status Clinical Service Informant Elevated blood pressure reading Discharge Diagnosis 07/30/23 Annual visit for general adult medical examination with abnormal findings Discharge Diagnosis 07/30/23 Epilepsy Discharge Diagnosis 07/30/23 Severe obesity (BMI 35.0-39.9) with comorbidity Discharge Diagnosis 07/30/23 Bipolar 1 disorder, manic, mild Discharge Diagnosis 07/30/23 Anxiety and depression Discharge Diagnosis 07/30/23 History of blood clots Discharge Diagnosis 07/30/23 Insomnia Discharge Diagnosis 07/30/23 Vital Signs Most recent to oldest [Reference Range]: 1 2 Height 175 cm (07/30/23 4:40 PM) 175 cm (07/30/23 4:17 PM) Weight 120.9 kg (07/30/23 4:17 PM) Oxygen Saturation [94-100 %] 100 % (07/30/23 4:17 PM) Pulse Rate [55-90 bpm] 88 bpm (07/30/23 4:17 PM) Body Mass Index [18.5-24.99 kg/m2] 39.48 kg/m2 *>HHI* (07/30/23 4:17 PM) Blood Pressure [90-138/55-84 mm Hg] 142/ 90mm Hg *H* (07/30/23 4:40 PM) 150/89mm Hg *H* (07/30/23 4:17 PM) Mode of Delivery (Oxygen) Room air (07/30/23 4:17 PM) Blood pressure sites Arm, left (07/30/23 4:40 PM) Arm, left (07/30/23 4:17 PM) Weight Obtained Via Standing scale (07/30/23 4:17 PM) Social History Social History Type Response Smoking Status Never smoker entered on: 12/05/15 Sex Female Note * Maya Childress: PERFORM, SIGN, VERIFY Event Display: Patient Education/Instruction Authored Date: [id number] [facility] *[facility] [place] [facility] Clinical Summary Name RHONDA DOWLING Age 42 Years 1980 PCP [facility]ervantes [id number] Visit Date 07/30/2023 16:10:00 Additional Instructions: Scheduled Appointments?? Future Appointments ?[facility] ?[address],??[place],??[address] ?Phone:??[phone]?Fax:??-- ?Appt. Date:??08/10/2023?7:30 AM ?Scheduled Provider:??[facility] Mammo Rm 1 ?[facility] ?[address],??[place],??[address] ?Phone:??[phone]?Fax:??-- ?Appt. Date:??08/10/2023?8:00 AM ?Scheduled Provider:??[facility] US Breast Rm 1 Follow-Up Instructions ?? Diagnosis Medications: Please continue your medications until treatment is completed or stopped by your provider. Discuss any questions related to medications with your provider. Medications to Continue Taking That Have Changed These medications were not printed or sent to your pharmacy - Escitalopram (Lexapro 20 mg oral tablet) 1 tab(s) Oral Daily. Refills: 0. Next Dose: Medications to Continue with No Changes These medications were not printed or sent to your pharmacy Albuterol (Ventolin HFA 108 mcg/inh inhalation aerosol with adapter) 2 puff(s) Inhalation every 4 hours as needed NEEDED FOR WHEEZING. Refills: 0. Next Dose: apixaban (Eliquis 2.5 mg oral tablet) 1 tab(s) Oral twice a day. Refills: 3. Next Dose: Durable Medical Equipment (Compression Stockings) surgical, knee length 20-30 mm Hg. Refills: 2. Next Dose: Etonogestrel (Nexplanon 68 mg subcutaneous implant) 1 Each Subcutaneous Infusion once. Next Dose: Furosemide (furosemide 20 mg oral tablet) 1 tab(s) Oral Daily for 90 Days. Refills: 0. Next Dose: levETIRAcetam (levETIRAcetam 1000 mg oral tablet) 1 tab(s) Oral twice a day for 30 Days. Refills: 11. Next Dose: Polyethylene Glycol 3350 (MiraLax oral powder for reconstitution) 17 gram Oral Daily. dissolve in water before taking. Refills: 0. Next Dose: Trazodone (traZODone 50 mg oral tablet) 1 tab(s) Oral Daily at Bedtime as needed Insomnia for 30 Days. Refills: 0. Next Dose: Allergy Info:?? Bee Stings; papaya Medications Given This Visit Future Orders ?CBC? Order Date:07/30/23?- Complete on or after?07/30/23 ?Comprehensive Metabolic Panel? Order Date:07/30/23?- Complete on or after?07/30/23 Vital Signs Height 175 cm Weight 120.9 kg BMI 39.48 kg/m2 Blood Pressure 142 mm Hg/90 mm Hg Temperature Pulse Rate 88 bpm Respiratory Rate 02 Sat Mode of Delivery 100 %/Room air You can now view a summary of your hospital visit from the comfort of your home through a free online portal called [employer]. [employer] is a website that allows you to securely view your medical information including discharge summary, medications and follow-up visits. ??You can alsosend a secure electronic message to your doctor???s office to request appointments, renew medications or just ask a question. You can enroll at [email or web address] or register during your next office visit. Disclaimer:?? The information provided is of a general nature and is intended to be used in conjunction with the recommendations and advice of your health care practitioner. ??Every effort has been made to ensure that the information provided is accurate and complete at the time it is provided to you however, as your needs change, or, as new ??information becomes available, different or additional instructions may be required. If you have questions, please consult with your primary care provider or pharmacist, as appropriate. ??This information is not intended to serve as substitution for assessment and evaluation by a qualified health care provider. If you do not have a primary care provider, you may find a [facility] provider by calling [facility] Link at [phone]. [facility], in keeping with [facility] guidance, no longer requires face masks for staff, patientsor visitors in most situations. Similar to time spent indoors at other locations, there is the chance that you were exposed to respiratory viruses during your time with us (such as flu or COVID-19).? If you develop symptoms concerning for a viral respiratory infection, please seek testing (and treatment if indicated) from your medical provider or home test kit. For information about the plan of care including goals and instructions for your diagnosis, please see the patient education orders section of this document. Patient Education Materials?? The content of this educational material or handout may have been modified, supplemented, or adapted from its original content and format to support your individualized medical care. Patient Care team information Care Team Personnel Name: Cecilio Cornejo RN Position: [facility] RN Member Role: Primary Care Nurse Name: Lori Cervantes NP Position: [facility] PCO Associate Professional Member Role: PCP Address: Address: [address] [place] [id number] Name: Ian CORTÉS, Scotty Shultz Position: S RN Member Role: Primary Care Nurse Name: Blanak RN, Nelson Position: [facility] LUANN RN W/OE and Tasks Member Role: Primary Care Nurse Name: Fiona Gillis RN Position: [facility] RN Member Role: Primary Care Nurse Name: vEe Roy RN Position: S RN Member Role: Primary Care Nurse Care Team Related Persons Name: BRAD DOMINGO Address: home [address] [place] [address] Name: CHACORTA DOMINGO Address: home [address] [place] [address] Name: DAMION MENARD Address: [place] [address]
== END 2023-08-10 11:11 | disposition home or self-care (01) ==
LOC: HO.HBS 10:13
PROVIDERS: PCP Nurse Practitioner Family; Visit Provider Physician Assistant Surgical
DX: E66.9 Obesity, unspecified (principal)
CPT/HCPCS: 99213

== ENCOUNTER → 2023-08-10 10:13 | Outpatient (BNVA) | payer OTHER, SELFPAY | PROVIDERS: PCP Nurse Practitioner Family; Visit Provider Physician Assistant Surgical | DX: E66.9 Obesity, unspecified (principal) ==

== ENCOUNTER 2023-09-07 14:45 | Outpatient (AMB) | payer OTHER, SELFPAY ==
[2023-09-07 14:27] VITALS: BMI 38.6
--- NOTE | 2023-09-07 14:27 | MHC.OFFVISWM ---
Intake VS Expanded 09/07/23 14:27 Height 5 ft 9 in Weight 261 lb 9.6 oz BMI 38.6 Body Fat % 49.9 Body Fat Mass 128.1 Fat Free Mass 130.9 Visceral Fat Rating 19 Body Water % 34.3 Body Water Mass 89.7 Muscle Mass/Score 123 Basal Metabolic Rate/Score 1,910 Intake Visit Reasons: TV F/U SWL Beef Farmer Required: No Allergies No Known Allergies [No Known Allergies*] Allergy (Verified 07/09/23 09:39) Medication List - Last Reconciled 09/07/23 by BRITTANY Nathan apixaban (Eliquis) 5 mg PO BID bisacodyl (Dulcolax (bisacodyl)) 10 mg [place] DAILY PRN bupropion HCl (Wellbutrin SR) 150 mg PO BID cholecalciferol (vitamin D3) 125 mcg PO DAILY 90 days escitalopram oxalate 20 mg PO DAILY iron,carbonyl-vitamin C 65 mg iron- 125 mg (Vitron-C) 1 tab PO DAILY 90 days levetiracetam (Keppra) 1,000 mg PO BID sennosides (senna) 17.2 mg (2 x 8.6 mg) PO BEDTIME PRN vitamin A palmitate 3,000 mcg PO DAILY 60 days HPI HPI Comments History of Present Illness Details The patient is a pleasant 42 year old female who returns to the clinic for pre-operative surgical weight loss management. They were last seen in the office on 07/09/23, recorded weight at that time was 261.6 pounds, with a BMI of 38.6. Today's weight is 261 pounds and BMI is 38.5. There has been a weight loss of 18.4 pounds since initiating the surgical weight loss program on 05/14/23 with a total body weight loss of 6.5 %. Pre op work up completed as follows: SWL classes:? 10/03 BH appts: 07/08/23-cleared? RD appts: cleared-06/14/23 Labs: 05/07/23-low A, D, mild iron def anemia H. pylori: 05/19/23-neg CXR: 06/23/23-nad EK07/09/23-normal ABD U/S: 07/28/23-fatty liver UGI: 07/23/23-mild ge junction narrowing The patient reports she feels as though her weight is at a plateau. Sometimes she is skipping her meal at night. She states she skips it 3-4 nights of the week. Has not been communicating weekly She states that she has a history of pulmonary embolism while about 7 or 8 years ago. She had another one 3 months after delivery. She is followed by Dr. Vizcarra of Hematology at [facility]. She has her appointment 09/16/23 at 9 am I requested that she call their office to determine if she in fact does still need to be on Eliquis and if during bariatric surgery that can be discontinued or she needs to have bridge with Lovenox. She will fax this note to us once available. Current meal plan includes: 1 celebrate rebuild shake ([facility] [employer]), (2 scoops in 20 oz unsweetened almond milk) at 6am-8am finishes at 7 am 2 protein bars (Celebrate bars at [facility] [employer]) First bar at 9am-11am. Second bar at 1pm-3pm Dinner at 6pm (10 forks of protein and 10 forks of salad/vegetables). Drinking 160 oz of water Current exercise plan includes: PF 3 days per week. Treadmill, 300 calories, elliptical, 80 calories PFSH Medical History Hypothyroidism Depression GERD (gastroesophageal reflux disease) Pulmonary embolism Epilepsy Morbid obesity Surgical History History of laparoscopic cholecystectomy History of laparoscopic appendectomy Family History Father Coronary artery disease Hypertension Diabetes mellitus Mother Breast cancer Hypertension Daughter No problems noted. Son Asthma Food allergy Son Asthma Food allergy Son Food allergy Asthma Daughter No problems noted. Social History Alcohol intake: current Alcohol intake frequency: holidays/special occasions only Patient Tobacco Use Status: Never used Tobacco Assessment & Plan Assessment & Plan (1) Obesity: Code(s): E66.9 - Obesity, unspecified Plan: Patient was encouraged to follow the meal plan exactly. Decrease water intake from 160 oz to 80 oz. Increase exercise to 5 days per week, 400 calories per day. Encouraged to communicate weekly. Expected weight loss 7 lb by next appointment. She will discuss with Hematology whether she still needs to be on anticoagulants and risk assessment for thrombotic event with surgery. Telehealth Telehealth Location of provider rendering services: practice address Location of patient: other Patient Identification confirmed using: Name, : Yes Telehealth method: voice only Patient verbally consented to treatment: Yes Patient verbally consented to billing insurance company: Yes Patient informed of any privacy concerns related to visit: Yes Minutes spent on Phone/Video with Pt.: 15 Coding Level of Care Code Tele Est Pt Level 3 (03381) Diagnoses Obesity E66.9 Time Spent (min) 20
== END 2023-09-07 14:54 | disposition home or self-care (01) ==
LOC: HO.HBS 14:45
PROVIDERS: PCP Nurse Practitioner Family; Visit Provider Physician Assistant Surgical
DX: E66.9 Obesity, unspecified (principal)
CPT/HCPCS: 99213

== ENCOUNTER → 2023-09-07 14:45 | Outpatient (BNVA) | payer OTHER, SELFPAY | PROVIDERS: PCP Nurse Practitioner Family; Visit Provider Physician Assistant Surgical | DX: E66.9 Obesity, unspecified (principal) ==

== ENCOUNTER 2023-10-05 08:55 | Outpatient (AMB) | payer OTHER, SELFPAY ==
--- NOTE | 2023-10-05 08:31 | A.OFFVIS_ITS ---
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 Required: No Allergies No Known Allergies [No Known Allergies*] Allergy (Verified 07/09/23 09:39) Medication List - Last Reconciled 10/05/23 by BRITTANY Nathan apixaban (Eliquis) 5 mg PO BID bisacodyl (Dulcolax (bisacodyl)) 10 mg [place] DAILY PRN bupropion HCl SR (Wellbutrin SR) 150 mg PO BID cholecalciferol (vitamin D3) 125 mcg PO DAILY 90 days escitalopram oxalate 20 mg PO DAILY iron,carbonyl-vitamin C 65 mg iron- 125 mg (Vitron-C) 1 tab PO DAILY 90 days levetiracetam (Keppra) 1,000 mg PO BID sennosides (senna) 17.2 mg (2 x 8.6 mg) PO BEDTIME PRN vitamin A palmitate 3,000 mcg PO DAILY 60 days HPI HPI Comments History of Present Illness Details The patient is a pleasant 42 year old female who returns to the clinic for pre-operative surgical weight loss management. They were last seen in the office on 09/07/23, recorded weight at that time was 261.6 pounds, with a BMI of 38.6. Today's weight is 259.7 pounds and BMI is 38.5. There has been a weight loss of 19.7 pounds since initiating the surgical weight loss program on 05/14/23 with a total body weight loss of 7 %. Pre op work up completed as follows: SWL classes:? 10/03 appts: 07/08/23-cleared? RD appts: cleared-06/14/23 Labs: 05/07/23-low A, D, mild iron def anemia H. pylori: 05/19/23-neg CXR: 06/23/23-nad EK07/09/23-normal ABD U/S: 07/28/23-fatty liver UGI: 07/23/23-mild ge junction narrowing The patient reports she feels as though her weight is at a plateau. Sometimes she is skipping her meal at night. She states she skips it 3-4 nights of the week. Has not been communicating weekly. Reports sig Left leg swelling since her daughters in 2000, had left leg GSV laser by Dr Rojas at [facility], 03/2023. Some transient improvement but then recurrence. She states that she has a history of pulmonary embolism while about 7 or 8 years ago. She had another one 3 months after delivery. She is followed by Dr. Vizcarra of Hematology at [facility]. She had her appointment 09/16/23 at 9 am, but it was cancelled by the office. She has another appointment scheduled 10/20/23. I requested that she call their office to determine if she in fact does still need to be on Eliquis and if during bariatric surgery that can be discontinued or she needs to have bridge with Lovenox. She will fax this note to us once available. Current meal plan includes: 1 celebrate rebuild shake ([facility]), (2 scoops in 20 oz un sweetened almond milk) at 6am-8am finishes at 7 am 2 protein bars (Celebrate bars at [facility] gift shop) First bar at 9am-11am. Second bar at 1pm-3pm Dinner at 6pm (10 forks of protein and 10 forks of salad/vegetables). Drinking 64 oz of water Current exercise plan includes: PF 3 days per week. bike, 600 calories, elliptical, 80 calories PFSH Medical History Hypothyroidism Depression GERD (gastroesophageal reflux disease) Pulmonary embolism Epilepsy Morbid obesity Surgical History History of laparoscopic cholecystectomy History of laparoscopic appendectomy Family History Father Coronary artery disease Hypertension Diabetes mellitus Mother Breast cancer Hypertension Daughter No problems noted. Son Asthma Food allergy Son Asthma Food allergy Son Food allergy Asthma Daughter No problems noted. Social History Alcohol intake: current Alcohol intake frequency: holidays/special occasions only Patient Tobacco Use Status: Never used Tobacco Assessment & Plan Assessment & Plan (1) Obesity: Code(s): E66.9 - Obesity, unspecified Plan: Continue current meal plan with recommendation to increase exercise to 4 days per week. Return to the office in 3-4 weeks. (2) Pulmonary embolism: Code(s): I26.99 - Other pulmonary embolism without acute cor pulmonale Plan: Remote history with follow-up with Hematology scheduled for 10/20/23. Question of whether she needs to continue Eliquis or not and if she does, if it can be stopped for bariatric surgery and bridge with Lovenox. (3) Edema of left lower leg: Code(s): R60.0 - Localized edema Plan: History of greater saphenous vein ablation in the past with continued left lower extremity swelling, longstanding since the of her daughter in 2000. Possible May-Thurner syndrome. Encouraged to seek vascular or Interventional Radiology opinion Telehealth Telehealth Location of provider rendering services: practice address Location of patient: address on file Patient Identification confirmed using: Name, : Yes Telehealth method: voice only Patient verbally consented to treatment: Yes Patient verbally consented to billing insurance company: Yes Patient informed of any privacy concerns related to visit: Yes Minutes spent on Phone/Video with Pt.: 20 Coding Level of Care Code Tele Est Pt Level 3 (09054) Diagnoses Obesity E66.9 Pulmonary embolism I26.99 Edema of left lower leg R60.0 Time Spent (min) 20
--- OUTSIDE RECORDS SUMMARY | 2023-10-05 08:59 | XMS_ITS | Continuity of Care Document ---
Author Organization [facility] Adult Address [address] [place] [address]- Care Team Providers Care Crane Ladle Person Name Role Phone Lori Cervantes NP Primary Care Physician Encounter [facility] [place] Date(s): 07/30/23 - 08/29/23 [facility] Adult [address] [place] [id number]- Attending Physician: Admtr, Ar8 Admitting Physician: Admtr, Ar8 Referring Physician: Admtr, Ar8 Allergies, Adverse Reactions, Alerts Substance Reaction Severity Status papaya Active Bee Stings Active Immunizations Given and Recorded Vaccine Date Status Refusal Reason SARS-CoV-2(COVID-19)mRNA-LNP vac([id number]) 04/27/23 Recorded influenza virus vaccine, inactivated 04/16/23 [...] tablet, 3 Refills, Maintenance, 08/20/22 15:48:00EST, Tablet, [facility] 1966, Partial fill upon patient request if the prescription is for a schedule II opioid drug., 175.5, cm, 08/14/22 15:05:... Start Date: 08/20/22 Status: Ordered furosemide 20 mg oral tablet 1, tablet, By Mouth, Daily, # 90 tablet, Refills 0, Maintenance, 08/27/23 7:12:00 EST, Route to Pharmacy Electronically, [facility] 1967, 175, cm, 07/30/23 16:40:00 EST, Height, 126, kg, 09/03/22 22:49:00 EST, Dry Weight Start Date: 08/27/23 Stop Date: 11/25/23 Status: Ordered levETIRAcetam 1000 mg oral tablet 1 tablet = 1,000 mg, By Mouth, 2 times a day, # 60 tablet, 11 Refills, Maintenance, 12/24/22 8:37:00 EDT, Tablet, [facility] 1967, Partial fill upon patient request, 175, cm, 12/17/22 11:21:00 EDT, Height, 126, kg, 09/03/22 22:49:00 EST, Dry Weight Start Date: 12/24/22 Stop Date: 12/19/23 Status: Ordered Lexapro 20 mg oral tablet 1 tablet = 20 mg, By Mouth, Daily, # 90 tablet, 3 Refills, Maintenance, 08/03/23 12:52:00 EST, [facility] 1967, Partial fill upon patient request if the prescription is for a schedule II opioiddrug., 175, cm, 07/30/23 16:40:00 EST, Height, 126,... Start Date: 08/03/23 Stop Date: 07/28/24 Status: Ordered MiraLax oral powder for reconstitution = 17 Gm, By Mouth, Daily, dissolve in water before taking, # 527 Gm, 0 Refills, Maintenance, 09/03/22 23:10:00 EST, REC Powder, [facility] 1967, Partial fill upon patient [...] Status: Ordered traZODone 50 mg oral tablet 1, tablet, By Mouth, Daily at bedtime, PRN, # 30 tablet, Refills 2, Maintenance, NEEDED FOR INSOMNIA FOR, 08/27/23 7:11:00 EST, Route to Pharmacy Electronically, [facility] 1967, 175, cm, 07/30/23 16:40:00 EST, Height, 126, kg, 09/03/22 22:49... Start Date: 08/27/23 Stop Date: 09/26/23 Status: Ordered Ventolin HFA 108 mcg/inh inhalation aerosol with adapter 2 puffs, Inhalation, Every 4 hours, PRN NEEDED FOR WHEEZING, # 18 Gm, 0 Refills, Maintenance, 07/27/23 16:41:00 EST, [facility] 1967, 175, cm, 06/29/23 15:47:00 EST, Height, 126, [...] Team Personnel Name: Cecilio Cornejo RN Position: [facility] RN Member Role: Primary Care Nurse Name: Lori Cervantes NP Position: [facility] PCO Associate Professional Member Role: PCP Address: Address: [address] [place] [address]- Name: Scotty Sosa RN Position: [facility] RN Member Role: Primary Care Nurse Name: Nelson Moscoso RN Position: [facility] ED RN W/OE and Tasks Member Role: Primary Care Nurse Name: Fiona Gillis RN Position: [facility] RN Member Role: Primary Care Nurse Name: Eve Roy RN Position: [facility] RN Member Role: Primary Care Nurse Care Team Related Persons Name: BRAD DOMINGO Address: home [address] [place] [address] [place] [address] Name: CHACORTA DOMINGO Address: home [address] [place] [address] Name: DAMION MENARD Address: home [place] [id number]
--- OUTSIDE RECORDS SUMMARY | 2023-10-05 09:02 | XMS_ITS | Continuity of Care Document ---
Author Organization [facility] Adult Address [address] [place] [address]- Care Team Providers Care Children[employer] Director Name Role Phone Lori Cervantes NP Primary Care Physician [phone] [place] [facility] [place]23 [place] 08/26/23 [facility] Adult [address] [place] [id number]- Allergies, Adverse Reactions, Alerts Substance Reaction Severity Status papaya Active Bee Stings Active Immunizations Given and Recorded Vaccine Date Status Refusal Reason SARS-CoV-2(COVID-19)mRNA-LNP vac([id number]) 04/27/23 Recorded influenza virus vaccine, inactivated 04/16/23 [...] tablet, 3 Refills, Maintenance, 08/20/22 15:48:00EST, Tablet, [facility] 1966, Partial fill upon patient request if the prescription is for a schedule II opioid drug., 175.5, cm, 08/14/22 15:05:... Start Date: 08/20/22 Status: Ordered furosemide 20 mg oral tablet 1, tablet, By Mouth, Daily, # 90 tablet, Refills 0, Tot. Refills 0, Maintenance, 01/01/23 16:49:00 EDT, Route to Pharmacy Electronically, [facility] 1967, 175, cm, 01/01/23 16:45:00 EDT, Height, 126, kg, 09/03/22 22:49:00 EST, Dry Weight Start Date: 01/01/23 Stop Date: 04/01/23 Status: Ordered levETIRAcetam 1000 mg oral tablet 1 tablet = 1,000 mg, By Mouth, 2 times a day, # 60 tablet, 11 Refills, Maintenance, 12/24/22 8:37:00 EDT, Tablet, [facility] 1967, Partial fill upon patient request, 175, cm, 12/17/22 11:21:00 EDT, Height, 126, kg, 09/03/22 22:49:00 EST, Dry Weight Start Date: 12/24/22 Stop Date: 12/19/23 Status: Ordered Lexapro 20 mg oral tablet 1 tablet = 20 mg, By Mouth, Daily, # 90 tablet, 3 Refills, Maintenance, 08/03/23 12:52:00 EST, [facility] 1967, Partial fill upon patient request if the prescription is for a schedule II opioiddrug., 175, cm, 07/30/23 16:40:00 EST, Height, 126,... Start Date: 08/03/23 Stop Date: 07/28/24 Status: Ordered MiraLax oral powder for reconstitution = 17 Gm, By Mouth, Daily, dissolve in water before taking, # 527 Gm, 0 Refills, Maintenance, 09/03/22 23:10:00 EST, REC Powder, [facility] 1967, Partial fill upon patient [...] 06/29/23 16:47:00 EST, Route to Pharmacy Electronically, [facility] 1966, Partial fill upon patient request if the prescription is... Start Date: 06/29/23 Stop Date: 07/29/23 Status: Ordered Ventolin HFA 108 mcg/inh inhalation aerosol with adapter 2 puffs, Inhalation, Every 4 hours, PRN NEEDED FOR WHEEZING, # 18 Gm, 0 Refills, Maintenance, 07/27/23 16:41:00 EST, [facility], 175, cm, 06/29/23 15:47:00 EST, [...] Team Personnel Name: Cecilio Cornejo RN Position: [facility] RN Member Role: Primary Care Nurse Name: Lori Cervantes NP Position: [facility] PCO Associate Professional Member Role: PCP Address: Address: [address] [place] [address] Name: Scotty Sosa RN Position: [facility] RN Member Role: Primary Care Nurse Name: Blanka RN, Nelson Position: [facility] ED RN W/OE and Tasks Member Role: Primary Care Nurse Name: Fiona Gillis RN Position: [facility] SN RN Member Role: Primary Care Nurse Name: Eve Roy RN Position: [facility] RN Member Role: Primary Care Nurse Care Team Related Persons Name: BRAD DOMINGO Address: [address] [address] Name: JOSE L CHACORTA Address: home [address] [place] [address] Name: DAMION MENARD Address: [place] [address]
--- OUTSIDE RECORDS SUMMARY | 2023-10-05 09:02 | XMS_ITS | Continuity of Care Document ---
Author Organization [facility] Adult Address [address] [place] [address]- Care Team Providers Care Car Painter Name Role Phone Lori Cervantes NP Primary Care Physician Encounter [facility] [place] [place] Date(s): 07/27/23 - 08/26/23 [facility] Adult [address] [place] [address]- Allergies, Adverse Reactions, Alerts Substance Reaction Severity Status papaya Active Bee Stings Active Immunizations Given and Recorded Vaccine Date Status Refusal Reason SARS-CoV-2(COVID-19)mRNA-LNP vac([id number]) 04/27/23 Recorded influenza virus vaccine, inactivated 04/16/23 [...] tablet, 3 Refills, Maintenance, 08/20/22 15:48:00EST, Tablet, [facility] 1966, Partial fill upon patient request if the prescription is for a schedule II opioid drug., 175.5, cm, 08/14/22 15:05:... Start Date: 08/20/22 Status: Ordered furosemide 20 mg oral tablet 1, tablet, By Mouth, Daily, # 90 tablet, Refills 0, Tot. Refills 0, Maintenance, 01/01/23 16:49:00 EDT, Route to Pharmacy Electronically, [facility] 1967, 175, cm, 01/01/23 16:45:00 EDT, Height, 126, kg, 09/03/22 22:49:00 EST, Dry Weight Start Date: 01/01/23 Stop Date: 04/01/23 Status: Ordered levETIRAcetam 1000 mg oral tablet 1 tablet = 1,000 mg, By Mouth, 2 times a day, # 60 tablet, 11 Refills, Maintenance, 12/24/22 8:37:00 EDT, Tablet, [facility] 1967, Partial fill upon patient request, 175, cm, 12/17/22 11:21:00 EDT, Height, 126, kg, 09/03/22 22:49:00 EST, Dry Weight Start Date: 12/24/22 Stop Date: 12/19/23 Status: Ordered Lexapro 20 mg oral tablet 1 tablet = 20 mg, By Mouth, Daily, # 90 tablet, 3 Refills, Maintenance, 08/03/23 12:52:00 EST, [facility] 1967, Partial fill upon patient request if the prescription is for a schedule II opioiddrug., 175, cm, 07/30/23 16:40:00 EST, Height, 126,... Start Date: 08/03/23 Stop Date: 07/28/24 Status: Ordered MiraLax oral powder for reconstitution = 17 Gm, By Mouth, Daily, dissolve in water before taking, # 527 Gm, 0 Refills, Maintenance, 09/03/22 23:10:00 EST, REC Powder, [facility] 1967, Partial fill upon patient request [...] 06/29/23 16:47:00 EST, Route to Pharmacy Electronically, [facility] 1966, Partial fill upon patient request if the prescription is... Start Date: 06/29/23 Stop Date: 07/29/23 Status: Ordered Ventolin HFA 108 mcg/inh inhalation aerosol with adapter 2 puffs, Inhalation, Every 4 hours, PRN NEEDED FOR WHEEZING, # 18 Gm, 0 Refills, Maintenance, 07/27/23 16:41:00 EST, [email or web address], 175, cm, 06/29/23 15:47:00 EST, [...] Team Personnel Name: Cecilio Cornejo RN Position: [facility] RN Member Role: Primary Care Nurse Name: Lori Cervantes NP Position: [facility] PCO Associate Professional Member Role: PCP Address: Address: [address] [place] [address] Name: Scotty Sosa RN Position: [facility] RN Member Role: Primary Care Nurse Name: Blanka RN, Nelson Position: [facility] ED RN W/OE and Tasks Member Role: Primary Care Nurse Name: Fiona Gillis RN Position: [facility] SN RN Member Role: Primary Care Nurse Name: Eve Roy RN Position: [facility] RN Member Role: Primary Care Nurse Care Team Related Persons Name: BRAD DOMINGO Address: [address] [address] Name: JOSE L CHACORTA Address: home [address] [place] [address] Name: DAMION MENARD Address: [place] [address]
--- OUTSIDE RECORDS SUMMARY | 2023-10-05 09:03 | XMS_ITS | Continuity of Care Document ---
Author Organization [facility] Adult Address [address] [place] [address]- Care Team Providers Care Chemical Pumper Name Role Phone Lori Cervantes NP Primary Care Physician Encounter [facility] [place] Date(s): 08/04/23 - 09/03/23 [facility] Adult [address] [place] [address]- Allergies, Adverse Reactions, Alerts Substance Reaction Severity Status papaya Active Bee Stings Active Immunizations Given and Recorded Vaccine Date Status Refusal Reason SARS-CoV-2(COVID-19)mRNA-LNP vac([id number]) 04/27/23 Recorded influenza virus vaccine, inactivated 04/16/23 [...] tablet, 3 Refills, Maintenance, 08/20/22 15:48:00EST, Tablet, [facility] 1966, Partial fill upon patient request if the prescription is for a schedule II opioid drug., 175.5, cm, 08/14/22 15:05:... Start Date: 08/20/22 Status: Ordered furosemide 20 mg oral tablet 1, tablet, By Mouth, Daily, # 90 tablet, Refills 0, Maintenance, 08/27/23 7:12:00 EST, Route to Pharmacy Electronically, [facility] 1967, 175, cm, 07/30/23 16:40:00 EST, Height, 126, kg, 09/03/22 22:49:00 EST, Dry Weight Start Date: 08/27/23 Stop Date: 11/25/23 Status: Ordered levETIRAcetam 1000 mg oral tablet 1 tablet = 1,000 mg, By Mouth, 2 times a day, # 60 tablet, 11 Refills, Maintenance, 12/24/22 8:37:00 EDT, Tablet, [facility] 1967, Partial fill upon patient request, 175, cm, 12/17/22 11:21:00 EDT, Height, 126, kg, 09/03/22 22:49:00 EST, Dry Weight Start Date: 12/24/22 Stop Date: 12/19/23 Status: Ordered Lexapro 20 mg oral tablet 1 tablet = 20 mg, By Mouth, Daily, # 90 tablet, 3 Refills, Maintenance, 08/03/23 12:52:00 EST, [facility] 1967, Partial fill upon patient request if the prescription is for a schedule II opioiddrug., 175, cm, 07/30/23 16:40:00 EST, Height, 126,... Start Date: 08/03/23 Stop Date: 07/28/24 Status: Ordered MiraLax oral powder for reconstitution = 17 Gm, By Mouth, Daily, dissolve in water before taking, # 527 Gm, 0 Refills, Maintenance, 09/03/22 23:10:00 EST, REC Powder, [facility] 1967, Partial fill upon [...] 08/27/23 7:11:00 EST, Route to Pharmacy Electronically, [facility] 1967, 175, cm, 07/30/23 16:40:00 EST, Height, 126, kg, 09/03/22 22:49... Start Date: 08/27/23 Stop Date: 09/26/23 Status: Ordered Ventolin HFA 108 mcg/inh inhalation aerosol with adapter 2 puffs, Inhalation, Every 4 hours, PRN NEEDED FOR WHEEZING, # 18 Gm, 0 Refills, Maintenance, 07/27/23 16:41:00 EST, [facility] 1967, 175, cm, 06/29/23 15:47:00 EST, [...] Team Personnel Name: Cecilio Cornejo RN Position: S RN Member Role: Primary Care Nurse Name: Lori Cervantes NP Position: [facility] PCO Associate Professional Member Role: PCP Address: Address: [address] [place] [id number] Name: Ian CORTÉS, Scotty Shultz Position: [facility] RN Member Role: Primary Care Nurse Name: Blanka RN, Nelson Position: [facility] ED RN W/OE and Tasks Member Role: Primary Care Nurse Name: Eve Roy RN Position: S RN Member Role: Primary Care Nurse Care Team Related Persons Name: BRAD DOMINGO Address: home [address] [place] [address] Name: CHACORTA DOMINGO Address: home [address] [place] [address] Name: DAMION MENARD Address: [place] [address]
--- OUTSIDE RECORDS SUMMARY | 2023-10-05 09:04 | XMS_ITS | Continuity of Care Document ---
Author Organization [facility] Care Address [address] [place] [address]- Care Team Providers Care Supervisor Taping Name Role Phone Lori Cervantes NP Primary Care Physician Encounter [facility] [place] Date(s): 08/25/23 - 09/24/23 [facility] [address] [place], [place] [address] Attending Physician: Admtr, Ar8 Admitting Physician: Admtr, Ar8 Referring Physician: Admtr, Ar8 Allergies, Adverse Reactions, Alerts Substance Reaction Severity Status papaya Active Bee Stings Active Immunizations Given and Recorded Vaccine Date Status Refusal Reason SARS-CoV-2(COVID-19)mRNA-LNP vac([id number]) 04/27/23 Recorded influenza virus vaccine, inactivated 04/16/23 [...] Ordered Eliquis 2.5 mg oral tablet 1 tablet, By Mouth, 2 times a day, # 60 tablet, 5 Refills, Maintenance, 09/21/23 14:53:[facility], cm, 07/30/23 16:40:00 EST, Height, 126, kg, 09/03/22 22:49:00 EST, DryWeight Start Date: 09/21/23 Status: Ordered furosemide 20 mg oral tablet 1, tablet, By Mouth, Daily, # 90 tablet, Refills 0, Maintenance, 08/27/23 7:12:00 EST, Route to Pharmacy Electronically, [facility] 1967, 175, cm, 07/30/23 16:40:00 EST, Height, 126, kg, 09/03/22 22:49:00 EST, Dry Weight Start Date: 08/27/23 Stop Date: 11/25/23 Status: Ordered levETIRAcetam 1000 mg oral tablet 1 tablet = 1,000 mg, By Mouth, 2 times a day, # 60 tablet, 11 Refills, Maintenance, 12/24/22 8:37:00 EDT, Tablet, [facility] 1967, Partial fill upon patient request, 175, cm, 12/17/22 11:21:00 EDT, Height, 126, kg, 09/03/22 22:49:00 EST, Dry Weight Start Date: 12/24/22 Stop Date: 12/19/23 Status: Ordered Lexapro 20 mg oral tablet 1 tablet = 20 mg, By Mouth, Daily, # 90 tablet, 3 Refills, Maintenance, 08/03/23 12:52:00 EST, [facility] 1967, Partial fill upon patient request if the prescription is for a schedule II opioiddrug., 175, cm, 07/30/23 16:40:00 EST, Height, 126,... Start Date: 08/03/23 Stop Date: 07/28/24 Status: Ordered meclizine 25 mg oral tablet 1 tablet = 25 mg, By Mouth, 3 times a day, PRN for dizziness, for 30 days, # 60 tablet, 0 Refills, Acute 10/17/23 13:00:00 EDT, 09/17/23 13:00:00 EDT, Tablet, [id number], Partial fill upon patient request if the prescription is for a... Start Date: 09/17/23 Stop Date: 10/17/23 Status: Ordered MiraLax oral powder for reconstitution = 17 Gm, By Mouth, Daily, dissolve in water before taking, # 527 Gm, 0 Refills, Maintenance, 09/03/22 23:10:00 EST, REC Powder, [facility] 1966, Partial fill upon [...] 08/27/23 7:11:00 EST, [facility], [facility], cm, 07/30/23 16:40:00 EST, Height, 126, kg, 09/03/22 22:49... Start Date: 08/27/23 Stop Date: 09/26/23 Status: Ordered Ventolin HFA 108 mcg/inh inhalation aerosol with adapter 2 puffs, Inhalation, Every 4 hours, PRN NEEDED FOR WHEEZING, # 18 Gm, 0 Refills, Maintenance, 07/27/23 16:41:00 EST, [facility], 175, cm, 06/29/23 15:47:00 EST, [...] Team Personnel Name: Cecilio Cornejo RN Position: [facility] RN Member Role: Primary Care Nurse Name: Lori Cervantes NP Position: [facility] PCO Associate Professional Member Role: PCP Address: Address: [address] [place] [phone]- [place] Name: Ian CORTÉS, Scotty Shultz Position: S RN Member Role: Primary Care Nurse Name: Nelson Moscoso RN Position: [facility] ED RN W/OE and Tasks Member Role: Primary Care Nurse Name: Eve Roy RN Position: S RN Member Role: Primary Care Nurse Care Team Related Persons Name: BRAD DOMINGO Address: home [address] [place] [address] Name: JOSE L MARCELPAT Address: home [address] [place] [address] Name: DAMION MENARD Address: [place] [address]
== END 2023-10-05 08:56 | disposition home or self-care (01) ==
LOC: HO.HBS 08:55
PROVIDERS: PCP Nurse Practitioner Family; Visit Provider Physician Assistant Surgical
DX: E66.9 Obesity, unspecified (principal); I26.99 Other pulmonary embolism without acute cor pulmonale; R60.0 Localized edema
CPT/HCPCS: 99213

== ENCOUNTER → 2023-10-05 08:55 | Outpatient (BNVA) | payer OTHER, SELFPAY | PROVIDERS: PCP Nurse Practitioner Family; Visit Provider Physician Assistant Surgical | DX: E66.9 Obesity, unspecified (principal); I26.99 Other pulmonary embolism without acute cor pulmonale; R60.0 Localized edema ==

== ENCOUNTER 2023-11-12 15:25 | Outpatient (AMB) | payer OTHER, SELFPAY ==
[2023-11-12 10:07] VITALS: BMI 37.9
--- NOTE | 2023-11-12 10:07 | A.OFFVIS_ITS ---
VS Expanded 11/12/23 10:07 Height 5 ft 9 in Weight 256 lb 11.2 oz BMI 37.9 Body Fat % 48.9 Body Fat Mass 125.5 Fat Free Mass 130.9 Visceral Fat Rating 19 Body Water % 34.9 Body Water Mass 89.5 Muscle Mass/Score 123.1 Basal Metabolic Rate/Score 1,885 Intake Visit Reasons: TV F/U SWL Allergies No Known Allergies [No Known Allergies*] Allergy (Verified 07/09/23 09:39) HPI Comments Details: The patient is a pleasant 42 year old female who returns to the clinic for pre- operative surgical weight loss management. They were last seen in the office on 10/05/23, recorded weight at that time was 259.7 pounds, with a BMI of 38.5. Today's weight is 256.7 pounds and BMI is 37.9. There has been a weight loss of 22.7 pounds since initiating the surgical weight loss program on 05/14/23 with a total body weight loss of 8.1 %. Pre op work up completed as follows: SWL classes:? 10/03 BH appts: 07/08/23-cleared? RD appts: cleared-06/14/23 Labs: 05/07/23-low A, D, mild iron def anemia H. pylori: 05/19/23-neg CXR: 06/23/23-nad EK07/09/23-normal ABD U/S: 07/28/23-fatty liver UGI: 07/23/23-mild ge junction narrowing The patient reports she had venous ablation today at [facility]. She states that she has a history of pulmonary embolism while about 7 or 8 years ago. She had another one 3 months after delivery. She is followed by Dr. Vizcarra of Hematology at [facility]. She had her appointment 10/20/23 and was told that she should remain on Eliquis lifelong. She will need bridge therapy for her procedure. Awaiting formal note from her senior administrator support. Current meal plan includes: 1 celebrate rebuild shake, (2 scoops in 20 oz unsweetened almond milk) at 6am- 8am finishes at 7 am 2 protein bars (Celebrate bars at [facility])First bar at 9am- 11am. Second bar at 1pm-3pm Dinner at 6pm (10 forks of protein and 10 forks of salad/vegetables). Drinking 64 oz of water Current exercise plan includes: she has not been exercising, no motivation, some depression, burn out from work. PF 3 days per week. bike, 600 calories, elliptical, 80 calories PFSH Medical History Hypothyroidism Depression GERD (gastroesophageal reflux disease) Pulmonary embolism Epilepsy Morbid obesity Surgical History History of laparoscopic cholecystectomy History of laparoscopic appendectomy Family History Father Coronary artery disease Hypertension Diabetes mellitus Mother Breast cancer Hypertension Daughter No problems noted. Son Asthma Food allergy Son Asthma Food allergy Son Food allergy Asthma Daughter No problems noted. Social History Alcohol intake: current Alcohol intake frequency: holidays/special occasions only Patient Tobacco Use Status: Never used Tobacco Telehealth Telehealth Telehealth Platform: Telephone Location of provider rendering services: practice address Location of patient: address on file Patient Identification confirmed using: Name, : Yes Telehealth method: voice only Patient verbally consented to treatment: Yes Patient verbally consented to billing insurance company: Yes Patient informed of any privacy concerns related to visit: Yes Minutes spent on Phone/Video with Pt.: 15 Assessment & Plan Assessment & Plan (1) Obesity: Code(s): E66.9 - Obesity, unspecified Category: Medical Plan: Encouraged to follow the meal plan which she has been doing. Strongly encouraged to return to the gym, 5 days per week, as she says that she could do. Goal of 500-600 calories burned per day. Ultimate goal weight loss 15-18 lb in the next 6 weeks. We will have her return to the office in 6 weeks. She was encouraged to send me her weight weekly and text with any questions or concerns
== END 2023-11-12 15:30 | disposition home or self-care (01) ==
LOC: HO.HBS 15:25
PROVIDERS: PCP Nurse Practitioner Family; Visit Provider Physician Assistant Surgical
DX: E66.9 Obesity, unspecified (principal)
CPT/HCPCS: 99213

== ENCOUNTER → 2023-11-12 15:25 | Outpatient (BNVA) | payer OTHER, SELFPAY | PROVIDERS: PCP Nurse Practitioner Family; Visit Provider Physician Assistant Surgical | DX: E66.9 Obesity, unspecified (principal) ==

== ENCOUNTER 2023-12-24 13:30 | Outpatient (AMB) | payer OTHER, SELFPAY ==
[2023-12-24 12:08] VITALS: BMI 38.3
--- NOTE | 2023-12-24 12:08 | A.OFFVIS_ITS ---
VS Expanded 12/24/23 12:08 Height 5 ft 9 in Weight 259 lb 3 oz BMI 38.3 Body Fat % 49.6 Body Fat Mass 128.6 Fat Free Mass 130.7 Visceral Fat Rating 19 Body Water % 34.5 Body Water Mass 89.4 Muscle Mass/Score 122.8 Basal Metabolic Rate/Score 1,896 Intake Visit Reasons: TV F/U SWL Lean Facilitator Required: No Allergies No Known Allergies [No Known Allergies*] Allergy (Verified 07/09/23 09:39) Medication List - Last Reconciled 12/24/23 by BRITTANY Nathan apixaban (Eliquis) 5 mg PO BID bisacodyl (Dulcolax (bisacodyl)) 10 mg LA DAILY PRN bupropion HCl SR (Wellbutrin SR) 150 mg PO BID cholecalciferol (vitamin D3) 125 mcg PO DAILY 90 days escitalopram oxalate 20 mg PO DAILY iron,carbonyl-vitamin C 65 mg iron- 125 mg (Vitron-C) 1 tab PO DAILY 90 days levetiracetam (Keppra) 1,000 mg PO BID sennosides (senna) 17.2 mg (2 x 8.6 mg) PO BEDTIME PRN vitamin A palmitate 3,000 mcg PO DAILY 60 days HPI Comments Details: The patient is a pleasant 42 year old female who returns to the clinic for pre-operative surgical weight loss management. Today's weight is 259.3 pounds and BMI is 38.3. There has been a weight loss of 20.1 pounds since initiating the surgical weight loss program on 05/14/23 with a total body weight loss of 7.1 %. Pre op work up completed as follows: SWL classes:? 10/03 BH appts: 07/08/23-cleared? RD appts: cleared-06/14/23 Labs: 05/07/23-low A, D, mild iron def anemia H. pylori: 05/19/23-neg CXR: 06/23/23-nad EK07/09/23-normal ABD U/S: 07/28/23-fatty liver UGI: 07/23/23-mild ge junction narrowing She states that she has had several adjustments to her behavioral health medica tions. She is now more stabilized, focusing on herself, interested in improving her own health. She is maintained consistently going to the gym and following the meal plan. Ultimately, we will follow her for the next several months and potentially transfer to Dr. Salinas for continued ongoing preop surgical weight loss management. She states that she has a history of pulmonary embolism while about 7 or 8 years ago. She had another one 3 months after delivery. She is followed by Dr. Vizcarra of Hematology at [facility]. She had her appointment 10/20/23 and was told that she should remain on Eliquis lifelong. She will need bridge therapy for her procedure. Awaiting formal note from her shift stacker. Current meal plan includes: 1 celebrate rebuild shake, (2 scoops in 20 oz unsweetened almond milk) at 6am- 8am finishes at 7 am 2 protein bars (Celebrate bars at [facility] gift shop)First bar at 9am- 11am. Second bar at 1pm-3pm Dinner at 6pm (10 forks of protein and 10 forks of salad/vegetables). Drinking 64 oz of water Current exercise plan includes: walking daily around track PF 7 days per week. treadmill, 150 johan PFSH Medical History Hypothyroidism Depression GERD (gastroesophageal reflux disease) Pulmonary embolism Epilepsy Morbid obesity Surgical History History of laparoscopic cholecystectomy History of laparoscopic appendectomy Family History Father Coronary artery disease Hypertension Diabetes mellitus Mother Breast cancer Hypertension Daughter No problems noted. Son Asthma Food allergy Son Asthma Food allergy Son Food allergy Asthma Daughter No problems noted. Social History Alcohol intake: current Alcohol intake frequency: holidays/special occasions only Patient Tobacco Use Status: Never used Tobacco Physical Exam Vital Signs: BMI result Body Mass Index 38.3 Telehealth Telehealth Telehealth Platform: Telephone Location of provider rendering services: practice address Location of patient: address on file Patient Identification confirmed using: Name, : Yes Telehealth method: voice only Patient verbally consented to treatment: Yes Patient verbally consented to billing insurance company: Yes Patient informed of any privacy concerns related to visit: Yes Minutes spent on Phone/Video with Pt.: 15 Assessment & Plan Assessment & Plan (1) Obesity: Code(s): E66.9 - Obesity, unspecified Category: Medical Plan: Patient will continue current meal plan. Continue exercise plan. Encouraged to track calories burned with the [employer] funmilayo when she goes for a walk on the track. Return to office 6 weeks. Encouraged to continue to text weekly with weight measurements and if any questions
--- OUTSIDE RECORDS SUMMARY | 2023-12-24 13:57 | XMS_ITS | Continuity of Care Document ---
Author Organization [facility] Adult Address [address] [place] [address]- Care Team Providers Care Manager Transmission Name Role Phone Lori Cervantes NP Primary Care Physician Encounter [facility] Date(s): 11/08/23 - 11/15/[address] [address]- Encounter Diagnosis ADHD(Discharge Diagnosis) - 11/08/23 Bipolar 1 disorder, manic, mild(Discharge Diagnosis) - 11/08/23 Attending Physician: Lori Cervantes NP Allergies, Adverse Reactions, Alerts Substance Reaction Severity Status papaya Active Bee Stings Active Immunizations Given and Recorded Vaccine Date Status Refusal Reason SARS-CoV-2(COVID-19)mRNA-LNP vac([id number]) 04/27/23 Recorded influenza virus vaccine, inactivated 04/16/23 [...] Comment: HEPATITIS B TITER- POSITIVE + Medications Adderall XR 10 mg oral capsule, extended release 1 capsule = 10 mg, By Mouth, Daily, # 28 capsule, 0 Refills, Maintenance, 11/09/23 12:39:00 LUANNT, [facility], Partial fill upon patient request if the prescription is for a schedule II opioid drug., 1 capsule By Mouth Daily,x28 d... Start Date: 11/09/23 Stop Date: 12/07/23 Status: Ordered Compression Stockings See Instructions, # 2 each, Refills 2, Tot. Refills 2, Maintenance, surgical, knee length 20-30 mm Hg, 06/23/21 8:35:00 EST, Supply Start Date: 06/23/21 Status: Ordered Eliquis 2.5 mg oral tablet 1 tablet, By Mouth, 2 times a day, # 60 tablet, 5 Refills, Maintenance, 09/21/23 14:53:00 EDT, [facility], 175, cm, 07/30/23 16:40:00 EST, Height, 126, kg, 09/03/22 22:49:00 EST, DryWeight Start Date: 09/21/23 Status: Ordered furosemide 20 mg oral tablet 1, tablet, By Mouth, Daily, # 90 tablet, Refills 0, Maintenance, 08/27/23 7:12:00 EST, Route to Pharmacy Electronically, [facility], 175, cm, 07/30/23 16:40:00 EST, Height, 126, kg, 09/03/22 22:49:00 EST, Dry Weight Start Date: 08/27/23 Stop Date: 11/25/23 Status: Ordered levETIRAcetam 1000 mg oral tablet 1 tablet = 1,000 mg, By Mouth, 2 times a day, # 60 tablet, 11 Refills, Maintenance, 12/24/22 8:37:00 EDT, Tablet, [facility], Partial fill upon patient request, 175, cm, 12/17/22 11:21:00 EDT, Height, 126, kg, 09/03/22 22:49:00 EST, Dry Weight Start Date: 12/24/22 Stop Date: 12/19/23 Status: Ordered Lexapro 20 mg oral tablet 1 tablet = 20 mg, By Mouth, Daily, # 90 tablet, 3 Refills, Maintenance, 08/03/23 12:52:00 EST, [facility], Partial fill upon patient request if the prescription is for a schedule II opioiddrug., 175, cm, 07/30/23 16:40:00 EST, Height, 126,... Start Date: 08/03/23 Stop Date: 07/28/24 Status: Ordered MiraLax oral powder for reconstitution = 17 Gm, By Mouth, Daily, dissolve in water before taking, # 527 Gm, 0 Refills, Maintenance, 09/03/22 23:10:00 EST, REC Powder, [facility], Partial fill upon [...] 08/27/23 7:11:00 EST, [facility], 175, cm, 07/30/23 16:40:00 EST, Height, 126, kg, 09/03/22 22:49... Start Date: 08/27/23 Stop Date: 09/26/23 Status: Ordered Ventolin HFA 108 mcg/inh inhalation aerosol with adapter 2 puffs, Inhalation, Every 4 hours, PRN NEEDED FOR WHEEZING, # 18 Gm, 0 Refills, Maintenance, 07/27/23 16:41:00 EST, [facility], 175, cm, 06/29/23 15:47:00 EST, [...] Anxiety and depression Confirmed Active Severe obesity (BMI 35.0-39.9) with comorbidity Confirmed Active Thalassemia syndrome Confirmed 1998 Active Urge incontinence Confirmed Active Diagnosis Diagnosis Type Effective Dates Health Status inical Service Informant ADHD Discharge Diagnosis 11/08/23 Bipolar 1 disorder, manic, mild Discharge Diagnosis 11/08/23 Vital Signs Most recent to oldest [Reference Range]: 1 Height 175 cm (11/08/23 9:18 AM) Weight 120.4 kg (11/08/23 9:18 AM) Oxygen Saturation [94-100 %] 100 % (11/08/23 9:18 AM) Pulse Rate [55-90 bpm] 81 bpm (11/08/23 9:18 AM) Body Mass Index [18.5-24.99 kg/m2] 39.31 kg/m2 *>HHI* (11/08/23 9:18 AM) Blood Pressure [90-138/55-84 mm Hg] 129/ 82mm Hg (11/08/23 9:18 AM) Temperature [96.8-100.4 DegF] 98.7 DegF (11/08/23 9:18 AM) Mode of Delivery (Oxygen) Room air (11/08/23 9:18 AM) Blood pressure sites Arm, left (11/08/23 9:18 AM) Temperature Route Oral (11/08/23 9:18 AM) Weight Obtained Via Standing scale (11/08/23 9:18 AM) Social History Social History Type Response Smoking Status Never smoker entered on: 12/05/15 Sex Female Note * Catherine Callahan: PERFORM Event Display: Patient Education/Instruction Authored Date: [id number] Ambulatory Adult Visit Summary [facility] [address] [place] [id number] Name: RHONDA DOWLING : 1980?? Visit: 11/08/2023 09:12?? Ambulatory Visit Instructions ?? Your Care Team Primary Care Provider Lori Cervantes NP? This Visit Provider Lori Cervantes NP Your Diagnosis ADHD Bipolar 1 disorder, manic, mild Chronic prescription opiate use Vitals Signs Temperature: 98.7 DegF Height: 175 cm Pulse Rate: 81 bpm Weight: 120.4 kg Systolic Blood Pressure: 129 mm Hg Body Mass Index:??39.31 kg/m2??Critical Diastolic Blood Pressure: 82 mm Hg Body surface area: 2.42 Oxygen Saturation: 100 % ?? What to do next Scheduled Follow-Up Appointments Wednesday 3:00 PM EDT ?? With: Ronaldo STRATTON, Keegan Nicholas Where: [address] [address]- Status: Pending Wednesday 8:30 AM EDT ?? Where: [facility] [address], [address] [place] [address]- Status: Pending Wednesday 9:30 AM EDT ?? Where: [facility] [address], [address] [place] [address]- Status: Pending Future Orders Amphetamine Urine Screen - Routine, Once, 11/08/23 10:23:00 EDT, Order for Today, [facility], Urine?? Barbiturate Urine Screen - Routine, Once, 11/08/23 10:23:00 EDT, Order for Today, [facility], Urine?? Benzodiazepine Urine Screen - Routine, Once, 11/08/23 10:23:00 EDT, Order for Today, [facility], Urine?? Buprenorphine Urine - Routine, Once, 11/08/23 10:23:00 EDT, Order for Today, [facility], Urine?? Buprenorphine Urine - Routine, Once, 11/08/23 10:23:00 EDT, Order for Today, [facility], Urine?? Cocaine Urine Screen - Routine, Once, 11/08/23 10:23:00 EDT, Order for Today, [facility], Urine?? Methadone Urine - Routine, Once, 11/08/23 10:23:00 EDT, Order for Today, [facility], Urine?? Opiate Screen Urine - Routine, Once, 11/08/23 10:23:00 EDT, Order for Today, [facility], Urine?? Oxycodone Screen Urine - Routine, Once, 11/08/23 10:23:00 EDT, Order for Today, [facility], Urine?? Fentanyl Screen, Urine - Routine, Once, 11/08/23 10:23:00 EDT, Order for Today, [facility], Urine?? Buprenorphine & Nalox Urine Toxicology - Routine, Once, 11/08/23 10:23:00 EDT, Order for Today,[facility], Urine?? Methylphenidate Metab Urine Toxicology - Routine, Once, 11/08/23 10:23:00 EDT, Order for Today, [facility], Urine?? [facility] Referral Lab Test - Routine, Once, CPT 18150, 11/08/23 10:23:00 EDT, Order for Today, [facility],OTHER?? Opiates Urine with Confirmation - Routine, Once, 11/08/23 10:23:00 EDT, Order for Today, [facility], Urine?? Medications The list below reflects the information in our records and provided by you today along with any changes made during this visit. Please continue your medications until treatment is completed or stopped by your provider. If this is different from the information you have or there are other questions,please contact the prescribing provider. What How Much When Why Instructions New Amphetamine-Dextroamphetamine (Adderall XR 10 mg oral capsule, extended release) 1 capsule Oral Daily Duration: 28 Days Pickup at [facility] Unchanged Albuterol (Ventolin HFA 108 mcg/ inh inhalation aerosol with adapter) 2 puff(s) Inhalation Every 4 hours as needed for NEEDED FOR WHEEZING Unchanged apixaban (Eliquis 2.5 mg oral tablet) 1 tab(s) Oral Twice a day Unchanged Durable Medical Equipment (Compression Stockings) See instructions Bilateral leg edema surgical, knee length 20-30 mm Hg ?? Unchanged Escitalopram (Lexapro 20 mg oral tablet) 1 tab(s) Oral Daily Duration: 90 Days Unchanged Etonogestrel (Nexplanon 68 mg subcutaneous implant) 1 Each Subcutaneous Infusion Once Unchanged Furosemide (furosemide 20 mg oral tablet) 1 tab(s) Oral Daily Duration: 90 Days Unchanged levETIRAcetam (levETIRAcetam 1000 mg oral tablet) 1 tab(s) Oral Twice a day Duration: 30 Days Unchanged Polyethylene Glycol 3350 (MiraLax oral powder for reconstitution) 17 gram Oral Daily dissolve in water before taking ?? Unchanged Trazodone (traZODone 50 mg oral tablet) 1 tab(s) Oral Daily at Bedtime as needed for NEEDED FOR INSOMNIA FOR Duration: 30 Days Pharmacy Information [facility]: [address] [place], [place] [id number] [phone] Test Performed Below is a partial list of the tests performed during your Visit. You may have had other tests and procedures not included in this list. Please discuss all test results with your provider. Amphetamine Urine Screen?-- Results Pending -- Barbiturate Urine Screen?-- Results Pending -- Benzodiazepine Urine Screen?-- Results Pending -- Buprenorphine & Nalox Urine Toxicology?-- Results Pending -- Buprenorphine Urine?-- Results Pending -- Cocaine Urine Screen?-- Results Pending -- Fentanyl Screen, Urine?-- Results Pending -- Methadone Urine?-- Results Pending -- Methylphenidate Metab Urine Toxicology?-- Results Pending -- [facility] Referral Lab Test?-- Results Pending -- Opiate Screen Urine?-- Results Pending -- Opiates Urine with Confirmation?-- Results Pending -- Oxycodone Screen Urine?-- Results Pending -- You will be contacted within 72 hours with your results. Medications and Immunizations Administered Medications Given During Visit No medications given during this visit.?? Allergies (NKA means No Known Allergies) Bee Stings papaya Common Emergency Awareness Tips IS IT A STROKE? Act FAST and Check for these signs: FACE Does the face look uneven? ARM Does one arm drift down? SPEECH Does their speech sound strange? TIME Call at any sign of stroke ?? Heart Attack Signs Chest discomfort: Most heart attacks involve discomfort in the center of the chest and lasts more than a few minutes, or goes away and comes back. It can feel like uncomfortable pressure, squeezing, fullness or pain. Discomfort in upper body: Symptoms can include pain or discomfort in one or both arms, back, neck, jaw or stomach. Shortness of breath: With or without discomfort. Other signs: Breaking out in a cold sweat, nausea, or lightheaded. Remember, MINUTES DO MATTER. If you experience any of these heart attack warning signs, call to get immediate medical attention! ?? Smoking can increase your chances of developing chronic health problems and can cause harmful effects to other family members in your house. If you smoke, you are strongly encouraged to quit. Please call [employer] at [phone] or 5-034-948HubNami ([phone]) or log in to [email or web address] for referrals to smoking cessation programs. ?? The National Suicide Prevention Hotline is available 18/01 if you or someone you know needs to find a reason to keep living. By calling 8-764-640-qbag (9425) you'll be connected to a skilled, trained counselor at a crisis center in your area. [facility] [employer] Portal You can view and manage your care through the patient portal or by using a health care funmilayo of your choosing. [employer] is a website that allows you to securely view your medical information including your hospital discharge summary, office visit summaries, medications and follow-up visits. You can also request appointments, renew medications, and request access to your medical information using a health care funmilayo of your choosing, or just ask a question. You can enroll at [email or web address] or register during your next office visit. [facility], in keeping with [facility] guidance, no longer requires face masks for staff, patientsor visitors in most situations. Similiar to time spent indoors at other locations, there is the chance that you were exposed to repiratory viruses during your time with us (such as flu or COVID-19). If you develop symptoms concerning for a viral respiratory infection, please seek testing (and treatment if indicated) from your medical provider or home test kit. ?? Disclaimer: The information provided is of a general nature and is intended to be used in conjunction with the recommendations and advice of your health care practitioner. Every effort has been made to ensure that the information provided is accurate and complete at the time it is provided to you however, as your needs change, or, as new information becomes available, different or additional instructions may be required. ?? If you have questions, please consult with your primary care provider or pharmacist, as appropriate. This information is not intended to serve as substitution for assessment and evaluation by a qualified health care provider. If you do not have a primary care provider, you may find a [facility] provider by calling [facility] [employer] Link at [phone]. Patient Care team information Care Team Personnel Name: Cecilio Cornejo RN Position: S RN Member Role: Primary Care Nurse Name: Lori Cervantes NP Position: [facility] PCO Associate Professional Member Role: PCP Address: Address: [address] [place] [address]- [place] Name: Ian CORTÉS, Scotty Shultz Position: [facility] RN Member Role: Primary Care Nurse Name: Blanka RNNelson Position: [facility] ED RN W/OE and Tasks Member Role: Primary Care Nurse Name: Fiona Gillis RN Position: [facility] JOELLEN Office Staff Member Role: Primary Care Nurse Name: Eve Roy RN Position: [facility] RN Member Role: Primary Care Nurse Care Team Related Persons Name: BRAD DOMINGO Address: home [address] [place] [address] Name: JOSE L CHACORTA Address: home [address] [place] [address] Name: DAMION MENARD Address: [place] [address]
--- OUTSIDE RECORDS SUMMARY | 2023-12-24 13:58 | XMS_ITS | Continuity of Care Document ---
Author Organization [facility] Adult Address [address] [place] [address]- Care Team Providers Care Knocker Off Name Role Phone Lori Cervantes NP Primary Care Physician Encounter [facility] Date(s): 11/08/23 - 12/08/[address] [address]- Allergies, Adverse Reactions, Alerts Substance Reaction Severity Status papaya Active Bee Stings Active Immunizations Given and Recorded Vaccine Date Status Refusal Reason SARS-CoV-2(COVID-19)mRNA-LNP vac([id number]) 04/27/23 Recorded influenza virus vaccine, inactivated 04/16/23 [...] 28 capsule, 0 Refills, Maintenance, 11/09/23 12:39:00 EDT, [facility], Partial fill upon [...] tablet, 5 Refills, Maintenance, 09/21/23 14:53:00 EDT, [facility], 175, cm, 07/30/23 16:40:00 EST, Height, 126, kg, 09/03/22 22:49:00 EST, DryWeight Start Date: 09/21/23 Status: Ordered furosemide 20 mg oral tablet 1, tablet, By Mouth, Daily, # 90 tablet, Refills 0, Maintenance, 08/27/23 7:12:00 EST, Route to Pharmacy Electronically, [facility], 175, cm, 07/30/23 16:40:00 EST, Height, 126, kg, 09/03/22 22:49:00 EST, Dry Weight Start Date: 08/27/23 Stop Date: 11/25/23 Status: Ordered levETIRAcetam 1000 mg oral tablet 1 tablet = 1,000 mg, By Mouth, 2 times a day, # 60 tablet, 11 Refills, Maintenance, 12/03/23 15:17:00 EDT, Tablet, [facility], Partial fill upon patient request, 175, cm, 12/03/23 15:03:00EDT, Height, 120.8, kg, 11/09/23 11:07:00 EDT, Dry... Start Date: 12/03/23 Stop Date: 11/27/24 Status: Ordered Lexapro 20 mg oral tablet 1 tablet = 20 mg, By Mouth, Daily, # 90 tablet, 3 Refills, Maintenance, 08/03/23 12:52:00 EST, [facility], Partial fill upon patient request if the prescription is for a schedule II opioiddrug., 175, cm, 07/30/23 16:40:00 EST, Height, 126,... Start Date: 08/03/23 Stop Date: 07/28/24 Status: Ordered MiraLax oral powder for reconstitution = 17 Gm, By Mouth, Daily, dissolve in water before taking, # 527 Gm, 0 Refills, Maintenance, 09/03/22 23:10:00 EST, REC Powder, [facility], Partial fill upon patient request if the prescription is for a schedule II opioid drug., 17 Gm By Mo... Start Date: 3/9/23 Status: Ordered Nexplanon 68 mg subcutaneous implant [...] 7:11:00 EST, Route to Pharmacy Electronically, [facility], 175, cm, 07/30/23 16:40:00 EST, Height, 126, kg, 09/03/22 22:49... Start Date: 08/27/23 Stop Date: 09/26/23 Status: Ordered Ventolin HFA 108 mcg/inh inhalation aerosol with adapter 2 puffs, Inhalation, Every 4 hours, PRN NEEDED FOR WHEEZING, # 18 Gm, 0 Refills, Maintenance, 07/27/23 16:41:00 EST, [facility], 175, cm, 06/29/23 15:47:00 EST, [...] Team Personnel Name: Cecilio Cornejo RN Position: [facility] RN Member Role: Primary Care Nurse Name: Lori Cervantes NP Position: [facility] PCO Associate Professional Member Role: PCP Address: Address: [address] [place] [id number] Name: Scotty Sosa RN Position: [facility] RN Member Role: Primary Care Nurse Name: Blanka RN, Nelson Position: [facility] ED RN W/OE and Tasks Member Role: Primary Care Nurse Name: Fiona Gillis RN Position: [facility] JOELLEN Office Staff Member Role: Primary Care Nurse Name: Eve Roy RN Position: [facility] RN Member Role: Primary Care Nurse Care Team Related Persons Name: BRAD DOMINGO Address: home [address] [place] [address] Name: CHACORTA DOMINGO Address: home [address] [place] [address] Name: DAMION MENARD Address: [place] [address]
--- OUTSIDE RECORDS SUMMARY | 2023-12-24 13:59 | XMS_ITS | Continuity of Care Document ---
Author Organization [facility] Address [address], [address], [address] [place] [address]- Care Team Providers Care Education Specialist Name Role Phone Lori Cervantes NP Primary Care Physician [phone] Encounter [facility] Date(s): 12/03/23 - 12/10/23 [facility] [address] [place], [place] [address] Attending Physician: Mary Rizzo MD, Bridgett Allergies, Adverse Reactions, Alerts Substance Reaction Severity Status papaya Active Bee Stings Active Immunizations Given and Recorded Vaccine Date Status Refusal Reason SARS-CoV-2(COVID-19)mRNA-LNP vac([id number]) 04/27/23 Recorded influenza virus vaccine, inactivated 04/16/23 [...] Maintenance, 11/09/23 12:39:00 EDT, [facility] 1967, Partial fill upon patient request [...] tablet, 5 Refills, Maintenance, 09/21/23 14:53:00 EDT, [facility], 175, cm, 07/30/23 16:40:00 EST, Height, 126, kg, 09/03/22 22:49:00 EST, DryWeight Start Date: 09/21/23 Status: Ordered furosemide 20 mg oral tablet 1, tablet, By Mouth, Daily, # 90 tablet, Refills 0, Maintenance, 08/27/23 7:12:00 EST, Route to Pharmacy Electronically, [facility], 175, cm, 07/30/23 16:40:00 EST, Height, 126, kg, 09/03/22 22:49:00 EST, Dry Weight Start Date: 08/27/23 Stop Date: 11/25/23 Status: Ordered levETIRAcetam 1000 mg oral tablet 1 tablet = 1,000 mg, By Mouth, 2 times a day, # 60 tablet, 11 Refills, Maintenance, 12/03/23 15:17:00 EDT, Tablet, [facility] 1967, Partial fill upon patient request, 175, cm, 12/03/23 15:03:00EDT, Height, 120.8, kg, 11/09/23 11:07:00 EDT, Dry... Start Date: 12/03/23 Stop Date: 11/27/24 Status: Ordered Lexapro 20 mg oral tablet 1 tablet = 20 mg, By Mouth, Daily, # 90 tablet, 3 Refills, Maintenance, 08/03/23 12:52:00 EST, [facility] 1967, Partial fill upon patient request if the prescription is for a schedule II opioiddrug., 175, cm, 07/30/23 16:40:00 EST, Height, 126,... Start Date: 08/03/23 Stop Date: 07/28/24 Status: Ordered MiraLax oral powder for reconstitution = 17 Gm, By Mouth, Daily, dissolve in water before taking, # 527 Gm, 0 Refills, Maintenance, 09/03/22 23:10:00 EST, REC Powder, [facility] 1967, Partial fill upon patient request [...] 08/27/23 7:11:00 EST, Route to Pharmacy Electronically, [facility] 1967, 175, cm, 07/30/23 16:40:00 EST, Height, 126, kg, 09/03/22 22:49... Start Date: 08/27/23 Stop Date: 09/26/23 Status: Ordered Ventolin HFA 108 mcg/inh inhalation aerosol with adapter 2 puffs, Inhalation, Every 4 hours, PRN NEEDED FOR WHEEZING, # 18 Gm, 0 Refills, Maintenance, 07/27/23 16:41:00 EST, [facility], 175, cm, 06/29/23 15:47:00 EST, [...] Confirmed 1998 Active Urge incontinence Confirmed Active Vital Signs Most recent to oldest [Reference Range]: 1 Height 175 cm (12/03/23 3:03 PM) Weight 122.2 kg (12/03/23 3:03 PM) Oxygen Saturation [94-100 %] 98 % (12/03/23 3:03 PM) Pulse Rate [55-90 bpm] 84 bpm (12/03/23 3:03 PM) Body Mass Index [18.5-24.99 kg/m2] 39.9 kg/m2 *>HHI* (12/03/23 3:03 PM) Blood Pressure [90-138/55-84 mm Hg] 130/ 90mm Hg (12/03/23 3:03 PM) Mode of Delivery (Oxygen) Room air (12/03/23 3:03 PM) Blood pressure sites Arm, right (12/03/23 3:03 PM) Social History Social History Type Response Smoking Status Never smoker entered on: 12/05/15 Sex Female Patient Care team information Care Team Personnel Name: Cecilio Cornejo RN Position: [facility] RN Member Role: Primary Care Nurse Name: Lori Cervantes NP Position: [facility] PCO Associate Professional Member Role: PCP Address: Address: [address] [place] [id number]- Name: Scotty Sosa RN Position: [facility] RN Member Role: Primary Care Nurse Name: Nelson Moscoso RN Position: [facility] ED RN W/OE and Tasks Member Role: Primary Care Nurse Name: Fiona Gillis RN Position: [facility] JOELLEN Office Staff Member Role: Primary Care Nurse Name: Eve Roy RN Position: [facility] RN Member Role: Primary Care Nurse Care Team Related Persons Name: BRAD DOMINGO Address: home [address] [place] [address] Name: CHACORTA DOMINGO Address: home [address] [place] [address] Name: DAMION MENARD Address: [place] [address]
--- OUTSIDE RECORDS SUMMARY | 2023-12-24 14:01 | XMS_ITS | Continuity of Care Document ---
Author Organization [facility] Address [address] [place] [address]- Care Team Providers Care Automotive Welder Name Role Phone Lori Cervantes NP Primary Care Physician Encounter [facility] Date(s): 11/08/23 - 12/08/[address] [address] Attending Physician: AdmDottie samuel Admitting Physician: AdmtrDottie Referring Physician: AdmtrDottie Allergies, Adverse Reactions, Alerts Substance Reaction Severity Status papaya Active Bee Stings Active Immunizations Given and Recorded Vaccine Date Status Refusal Reason SARS-CoV-2(COVID-19)mRNA-LNP vac([id number]) 04/27/23 Recorded influenza virus vaccine, inactivated 04/16/23 [...] tablet, 5 Refills, Maintenance, 09/21/23 14:53:00 EDT, [facility], 175, cm, 07/30/23 16:40:00 EST, Height, 126, kg, 09/03/22 22:49:00 EST, DryWeight Start Date: 09/21/23 Status: Ordered furosemide 20 mg oral tablet 1, tablet, By Mouth, Daily, # 90 tablet, Refills 0, Maintenance, 08/27/23 7:12:00 EST, Route to Pharmacy Electronically, [facility] 1967, 175, cm, 07/30/23 16:40:00 EST, Height, 126, kg, 09/03/22 22:49:00 EST, Dry Weight Start Date: 08/27/23 Stop Date: 11/25/23 Status: Ordered levETIRAcetam 1000 mg oral tablet 1 tablet = 1,000 mg, By Mouth, 2 times a day, # 60 tablet, 11 Refills, Maintenance, 12/03/23 15:17:00 EDT, Tablet, [facility] 1967, Partial fill upon patient request, 175, cm, 12/03/23 15:03:00EDT, Height, 120.8, kg, 11/09/23 11:07:00 EDT, Dry... Start Date: 12/03/23 Stop Date: 11/27/24 Status: Ordered Lexapro 20 mg oral tablet 1 tablet = 20 mg, By Mouth, Daily, # 90 tablet, 3 Refills, Maintenance, 08/03/23 12:52:00 EST, [facility] 1967, Partial fill upon patient request if the prescription is for a schedule II opioiddrug., 175, cm, 07/30/23 16:40:00 EST, Height, 126,... Start Date: 08/03/23 Stop Date: 07/28/24 Status: Ordered MiraLax oral powder for reconstitution = 17 Gm, By Mouth, Daily, dissolve in water before taking, # 527 Gm, 0 Refills, Maintenance, 09/03/22 23:10:00 EST, REC Powder, [facility] 1967, Partial fill upon [...] 08/27/23 7:11:00 EST, Route to Pharmacy Electronically, [facility], 175, cm, 07/30/23 16:40:00 EST, Height, 126, kg, 09/03/22 22:49... Start Date: 08/27/23 Stop Date: 09/26/23 Status: Ordered Ventolin HFA 108 mcg/inh inhalation aerosol with adapter 2 puffs, Inhalation, Every 4 hours, PRN NEEDED FOR WHEEZING, # 18 Gm, 0 Refills, Maintenance, 07/27/23 16:41:00 EST, [facility], 175, cm, 06/29/23 15:47:00 EST, [...] Never smoker entered on: 12/05/15 Sex Female Radiology * Event Display: IR Special Procedures, Non-BH Authored Date: [id number] Patient Care team information Care Team Personnel Name: Cecilio Cornejo RN Position: [facility] RN Member Role: Primary Care Nurse Name: Lori Cervantes NP Position: [facility] PCO Associate Professional Member Role: PCP Address: Address: [address] [place] [id number]- [place] Name: Ian CORTÉS, Scotty Shultz Position: [facility] RN Member Role: Primary Care Nurse Name: Nelson Moscoso RN Position: [facility] ED RN W/OE and Tasks Member Role: Primary Care Nurse Name: Fiona Gillis RN Position: [facility] JOELLEN Office Staff Member Role: Primary Care Nurse Name: Eve Roy RN Position: [facility] RN Member Role: Primary Care Nurse Care Team Related Persons Name: BRAD DOMINGO Address: home [address] [place] [address] Name: JOSE L MARCELPAT Address: home [address] [place] [address] Name: DAMION MENARD Address: [place] [address]
== END 2023-12-24 13:54 | disposition home or self-care (01) ==
LOC: HO.HBS 13:53
PROVIDERS: PCP Nurse Practitioner Family; Visit Provider Physician Assistant Surgical
DX: E66.9 Obesity, unspecified (principal)
CPT/HCPCS: 99213

== ENCOUNTER → 2023-12-24 13:30 | Outpatient (BNVA) | payer OTHER, SELFPAY | PROVIDERS: PCP Nurse Practitioner Family; Visit Provider Physician Assistant Surgical | DX: E66.9 Obesity, unspecified (principal) ==

== ENCOUNTER 2024-02-04 13:05 | Outpatient (AMB) | payer OTHER, SELFPAY ==
--- NOTE | 2024-02-04 10:04 | A.OFFVIS_ITS ---
VS Expanded 02/04/24 10:22 Height 5 ft 9 in Weight 254 lb 3 oz BMI 37.5 Body Fat % 48.5 Body Fat Mass 123.3 Fat Free Mass 130.9 Visceral Fat Rating 18 Body Water % 35.3 Body Water Mass 89.7 Muscle Mass/Score 123 Basal Metabolic Rate/Score 1,874 Intake Visit Reasons: TV F/U SWL Allergies No Known Allergies [No Known Allergies*] Allergy (Verified 07/09/23 09:39) HPI Comments Details: The patient is a pleasant 42 year old female who returns to the clinic for pre- operative surgical weight loss management. Today's weight is 254.3 pounds and BMI is 37.5. There has been a weight loss of 25.1 pounds since initiating the surgical weight loss program on 05/14/23 with a total body weight loss of 8.9 %. Pre op work up completed as follows: SWL classes:? 02/02 BH appts: 07/08/23-cleared? RD appts: cleared-06/14/23 Labs: 05/07/23-low A, D, mild iron def anemia H. pylori: 05/19/23-neg CXR: 06/23/23-nad EK07/09/23-normal ABD U/S: 07/28/23-fatty liver UGI: 07/23/23-mild ge junction narrowing She states that she has had several adjustments to her behavioral health medications. She is now more stabilized, focusing on herself, interested in improving her own health. She is maintained consistently going to the gym and following the meal plan. Ultimately, we will follow her for the next several months and potentially transfer to Dr. Salinas for continued ongoing preop surgical weight loss management. She states that she has a history of pulmonary embolism while about 7 o r 8 years ago. She had another one 3 months after delivery. She is followed by Dr. Vizcarra of Hematology at [facility]. She had her appointment 10/20/23 and was told that she should remain on Eliquis lifelong. She will need bridge therapy for her procedure. 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 She state that she stopped doing the bars about 12 days ago without discussing. She does not like the bars. She would have a packet of oatmeal. Then she would have dinner. She has switched from chicken breast to tofu. avocado and salsa. 10 forks of protein and 10 of veg Current meal plan includes: 1 celebrate rebuild shake, (2 scoops in 20 oz unsweetened almond milk) at 6am- 8am 2 protein bars (Celebrate bars at [facility] gift shop)First bar at 9am- 11am. Second bar at 1pm-3pm Dinner at 6pm (10 forks of protein and 10 forks of salad/vegetables). Drinking 64 oz of water Current exercise plan includes: walking daily around track outside, 5 days per week,300 johan PF 2 days per week. treadmill, 300 johan PFSH Medical History Hypothyroidism Depression GERD (gastroesophageal reflux disease) Pulmonary embolism Epilepsy Morbid obesity Surgical History History of laparoscopic cholecystectomy History of laparoscopic appendectomy Family History Father Coronary artery disease Hypertension Diabetes mellitus Mother Breast cancer Hypertension Daughter No problems noted. Son Asthma Food allergy Son Asthma Food allergy Son Food allergy Asthma Daughter No problems noted. Social History Alcohol intake: current Alcohol intake frequency: holidays/special occasions only Patient Tobacco Use Status: Never used Tobacco Telehealth Telehealth Telehealth Platform: Telephone Location of provider rendering services: practice address Location of patient: address on file Patient Identification confirmed using: Name, : Yes Telehealth method: voice only Patient verbally consented to treatment: Yes Patient verbally consented to billing insurance company: Yes Patient informed of any privacy concerns related to visit: Yes Minutes spent on Phone/Video with Pt.: 20 Assessment & Plan Assessment & Plan (1) Obesity: Code(s): E66.9 - Obesity, unspecified Category: Medical Plan: Patient change her meal plan without advice or discussion. We talked about the importance of not doing that. We will change her meal plan to exclude bars as she does not wish to do them anymore. 2 celebrate rebuild shakes, (2 scoops in 20 oz unsweetened almond milk) at 6am- 8am, 12-2 She may have half cup fresh fruit (berries, apple, orange, kiwi) Dinner at 6pm (10 forks of protein and 10 forks of salad/vegetables). Encouraged to continue exercises she has been doing. We will have her return to the office as scheduled. Communicate weekly
[2024-02-04 10:22] VITALS: BMI 37.5
--- OUTSIDE RECORDS SUMMARY | 2024-02-04 13:07 | XMS_ITS | Continuity of Care Document ---
Author Organization [facility] Address [address] [place] [address]- Care Team Providers Care System Designer Name Role Phone Lori Cervantes NP Primary Care Physician Encounter [facility] Date(s): 12/29/23 - 01/28/[address] [address]- Allergies, Adverse Reactions, Alerts Substance Reaction Severity Status papaya Active Bee Stings Active Immunizations Given and Recorded Vaccine Date Status Refusal Reason SARS-CoV-2(COVID-19)mRNA-LNP vac([id number]) 04/27/23 Recorded influenza virus vaccine, inactivated 04/16/23 [...] Daily, # 28 capsule, 0 Refills, Maintenance, 01/07/24 8:41:00 EDT, Capsule, [facility], Partial fill upon patient request if the prescription is for a schedule II opioid drug., 1 capsule By Mouth Daily,x28 da... Start Date: 01/07/24 Stop Date: 02/04/24 Status: Ordered Compression Stockings See Instructions, # 2 each, Refills 2, Tot. Refills 2, Maintenance, surgical, knee length 20-30 mm Hg, 06/23/21 8:35:00 EST, Supply Start Date: 06/23/21 Status: Ordered Eliquis 2.5 mg oral tablet 1 tablet, By Mouth, 2 times a day, # 60 tablet, 5 Refills, Maintenance, 09/21/23 14:53:00 EDT, [facility], 175, cm, 07/30/23 16:40:00 EST, Height, 126, kg, 09/03/22 22:49:00 EST, DryWeight Start Date: 09/21/23 Status: Ordered furosemide 20 mg oral tablet 1, tablet, By Mouth, Daily, # 90 tablet, Refills 0, Maintenance, 08/27/23 7:12:00 EST, Route to Pharmacy Electronically, [facility] 1967, 175, cm, 07/30/23 16:40:00 EST, Height, 126, kg, 09/03/22 22:49:00 EST, Dry Weight Start Date: 08/27/23 Stop Date: 11/25/23 Status: Ordered levETIRAcetam 1000 mg oral tablet 1 tablet = 1,000 mg, By Mouth, 2 times a day, # 60 tablet, 11 Refills, Maintenance, 12/03/23 15:17:00 EDT, Tablet, [facility], Partial fill upon patient request, 175, cm, 12/03/23 15:03:00EDT, Height, 120.8, kg, 11/09/23 11:07:00 EDT, Dry... Start Date: 12/03/23 Stop Date: 11/27/24 Status: Ordered Lexapro 20 mg oral tablet 1 tablet = 20 mg, By Mouth, Daily, # 90 tablet, 3 Refills, Maintenance, 08/03/23 12:52:00 EST, [facility], Partial fill upon patient request if the prescription is for a schedule II opioiddrug., 175, cm, 07/30/23 16:40:00 EST, Height, 126,... Start Date: 08/03/23 Stop Date: 07/28/24 Status: Ordered MiraLax oral powder for reconstitution = 17 Gm, By Mouth, Daily, dissolve in water before taking, # 527 Gm, 0 Refills, Maintenance, 09/03/22 23:10:00 EST, REC Powder, [facility], Partial fill upon [...] at bedtime, PRN, # 30 tablet, Refills 5, Maintenance, NEEDED FOR INSOMNIA, 12/29/23 16:28:00 EDT, Route to Pharmacy Electronically, [facility], 175, cm, 12/03/23 15:03:00 EDT, Height, 120.8, kg, 11/09/23 11:07:... Start Date: 12/29/23 Status: Ordered Ventolin HFA 108 mcg/inh inhalation aerosol with adapter 2 puffs, Inhalation, Every 4 hours, PRN NEEDED FOR WHEEZING, # 18 Gm, 0 Refills, Maintenance, 07/27/23 16:41:00 EST, [facility], 175, cm, 06/29/23 15:47:00 EST, [...] Name: Cecilio Cornejo RN Position: [facility] RN Member Role: Primary Care Nurse Name: Lori Cervantes NP Position: [facility] PCO Associate Professional Member Role: PCP Address: Address: [address] [place] [id number] Name: Scotty Sosa RN Position: S RN Member Role: Primary Care Nurse Name: Blanka RN, Nelson Position: [facility] ED RN W/OE and Tasks Member Role: Primary Care Nurse Name: Fiona Gillis RN Position: [facility] JOELLEN Office Staff Member Role: Primary Care Nurse Name: Eve Roy RN Position: [facility] RN Member Role: Primary Care Nurse Care Team Related Persons Name: BRAD DOMINGO Address: home [address] [place] [address] Name: CHACORTA DOMINGO Address: home [address] [place] [address] Name: DAMION MENRAD Address: [place] [address]
--- OUTSIDE RECORDS SUMMARY | 2024-02-04 13:12 | XMS_ITS | Continuity of Care Document ---
Author Organization [facility] Address [address] [place] [address]- Care Team Providers Care Career Development Coordinator/Teacher Name Role Phone Lori Cervantes NP Primary Care Physician [phone] [id number] - 01/09[facility] [address] [place] [id number] Discharge Disposition: A-D/C Home Attending Physician: Jessie Mixon MD Admitting Physician: Jessie Mixon MD Referring Physician: Lori Cervantes NP Allergies, Adverse Reactions, Alerts Substance Reaction Severity Status papaya Active Bee Stings Active Immunizations Given and Recorded Vaccine Date Status Refusal Reason SARS-CoV-2(COVID-19)mRNA-LNP vac([id number]) 04/27/23 Recorded influenza virus vaccine, inactivated 04/16/23 [...] capsule, 0 Refills, Maintenance, 01/07/24 8:41:00 EDT, ER Capsule, [facility] 1966, Partial fill upon [...] tablet, 5 Refills, Maintenance, 09/21/23 14:53:00 EDT, [facility], 175, cm, 07/30/23 16:40:00 EST, Height, 126, kg, 09/03/22 22:49:00 EST, DryWeight Start Date: 09/21/23 Status: Ordered furosemide 20 mg oral tablet 1, tablet, By Mouth, Daily, # 90 tablet, Refills 0, Maintenance, 08/27/23 7:12:00 EST, Route to Pharmacy Electronically, [facility] 1967, 175, cm, 07/30/23 16:40:00 EST, Height, 126, kg, 09/03/22 22:49:00 EST, Dry Weight Start Date: 08/27/23 Stop Date: 11/25/23 Status: Ordered levETIRAcetam 1000 mg oral tablet 1 tablet = 1,000 mg, By Mouth, 2 times a day, # 60 tablet, 11 Refills, Maintenance, 12/03/23 15:17:00 EDT, Tablet, [facility] 1967, Partial fill upon patient request, 175, cm, 12/03/23 15:03:00EDT, Height, 120.8, kg, 11/09/23 11:07:00 EDT, Dry... Start Date: 12/03/23 Stop Date: 11/27/24 Status: Ordered Lexapro 20 mg oral tablet 1 tablet = 20 mg, By Mouth, Daily, # 90 tablet, 3 Refills, Maintenance, 08/03/23 12:52:00 EST, [facility], Partial fill upon patient request if the prescription is for a schedule II opioiddrug., 175, cm, 07/30/23 16:40:00 EST, Height, 126,... Start Date: 08/03/23 Stop Date: 07/28/24 Status: Ordered MiraLax oral powder for reconstitution = 17 Gm, By Mouth, Daily, dissolve in water before taking, # 527 Gm, 0 Refills, Maintenance, 09/03/22 23:10:00 EST, REC Powder, [facility] 1967, Partial fill upon [...] 12/29/23 16:28:00 EDT, [facility], 175, cm, 12/03/23 15:03:00 EDT, Height, 120.8, kg, 11/09/23 11:07:... Start Date: 12/29/23 Status: Ordered Ventolin HFA 108 mcg/inh inhalation aerosol with adapter 2 puffs, Inhalation, Every 4 hours, PRN NEEDED FOR WHEEZING, # 18 Gm, 0 Refills, Maintenance, 07/27/23 16:41:00 EST, [facility], 175, cm, 06/29/23 15:47:00 EST, [...] oldest [Reference Range]: 1 Height 175 cm (11/09/23 11:07 AM) Weight 120.8 kg (11/09/23 11:07 AM) Oxygen Saturation [94-100 %] 100 % (11/09/23 11:07 AM) Pulse Rate [55-90 bpm] 95 bpm *H* (11/09/23 11:07 AM) Body Mass Index [18.5-24.99 kg/m2] 39.44 kg/m2 *>HHI* (11/09/23 11:07 AM) Blood Pressure [90-138/55-84 mm Hg] 138/ 90mm Hg (11/09/23 11:07 AM) Temperature [96.8-100.4 DegF] 98.8 DegF (11/09/23 11:07 AM) Mode of Delivery (Oxygen) Room air (11/09/23 11:07 AM) Blood pressure sites Arm, right (11/09/23 11:07 AM) Temperature Route Temporal (11/09/23 11:07 AM) Dry Weight 120.8 kg (11/09/23 11:07 AM) Weight Obtained Via Standing scale (11/09/23 11:07 AM) Dry Weight Obtained Via Standing scale (11/09/23 11:07 AM) Social History Social History Type Response Smoking Status Never smoker entered on: 12/05/15 Sex Female Patient Care team information Care Team Personnel Name: Cecilio Cornejo RN Position: [facility] RN Member Role: Primary Care Nurse Name: Lori Cervantes NP Position: [facility] PCO Associate Professional Member Role: PCP Address: Address: [address] [place] [id number]- Name: Scotty Sosa RN Position: [facility] RN Member Role: Primary Care Nurse Name: Nelson Moscoso RN Position: [facility] ED RN W/OE and Tasks Member Role: Primary Care Nurse Name: Fiona Gillis RN Position: [facility] JOELLEN Office Staff Member Role: Primary Care Nurse Name: Eve Roy RN Position: [facility] RN Member Role: Primary Care Nurse Name: Kush Mishra MD Position: [facility] Physician - Oncology Med Service: Hematology & Oncology Address: Address: [address] [place] [address] [place] [address]- Care Team Related Persons Name: BRAD DOMINGO Address: home [address] [place] [address] Name: JOSE L MARCELPAT Address: home [address] [place] [address] Name: DAMION MENARD Address: [place] [address]
--- OUTSIDE RECORDS SUMMARY | 2024-02-04 13:13 | XMS_ITS | Continuity of Care Document ---
Author Organization [facility] Adult Address [address] [place] [address]- Care Team Providers Care Housekeeping Lead Name Role Phone Lori Cervantes NP Primary Care Physician Encounter [facility] Date(s): 12/17/23 - 01/16/[address] [address]- Allergies, Adverse Reactions, Alerts Substance Reaction Severity Status papaya Active Bee Stings Active Immunizations Given and Recorded Vaccine Date Status Refusal Reason SARS-CoV-2(COVID-19)mRNA-LNP vac([id number]) 04/27/23 Recorded influenza virus vaccine, inactivated 04/16/23 [...] 0 Refills, Maintenance, 01/07/24 8:41:00 EDT, Capsule, [facility] 1966, Partial fill upon patient [...] tablet, 5 Refills, Maintenance, 09/21/23 14:53:00 EDT, [facility], 175, cm, 07/30/23 16:40:00 EST, Height, 126, kg, 09/03/22 22:49:00 EST, DryWeight Start Date: 09/21/23 Status: Ordered furosemide 20 mg oral tablet 1, tablet, By Mouth, Daily, # 90 tablet, Refills 0, Maintenance, 08/27/23 7:12:00 EST, Route to Pharmacy Electronically, [facility] 1967, 175, cm, 07/30/23 16:40:00 EST, Height, 126, kg, 09/03/22 22:49:00 EST, Dry Weight Start Date: 08/27/23 Stop Date: 11/25/23 Status: Ordered levETIRAcetam 1000 mg oral tablet 1 tablet = 1,000 mg, By Mouth, 2 times a day, # 60 tablet, 11 Refills, Maintenance, 12/03/23 15:17:00 EDT, Tablet, [facility] 1967, Partial fill upon patient request, 175, cm, 12/03/23 15:03:00EDT, Height, 120.8, kg, 11/09/23 11:07:00 EDT, Dry... Start Date: 12/03/23 Stop Date: 11/27/24 Status: Ordered Lexapro 20 mg oral tablet 1 tablet = 20 mg, By Mouth, Daily, # 90 tablet, 3 Refills, Maintenance, 08/03/23 12:52:00 EST, [facility] 1967, Partial fill upon patient request if the prescription is for a schedule II opioiddrug., 175, cm, 07/30/23 16:40:00 EST, Height, 126,... Start Date: 08/03/23 Stop Date: 07/28/24 Status: Ordered MiraLax oral powder for reconstitution = 17 Gm, By Mouth, Daily, dissolve in water before taking, # 527 Gm, 0 Refills, Maintenance, 09/03/22 23:10:00 EST, REC Powder, [facility] 1967, Partial fill upon patient [...] 12/29/23 16:28:00 EDT, Route to Pharmacy Electronically, [facility] 1967, 175, cm, 12/03/23 15:03:00 EDT, Height, 120.8, kg, 11/09/23 11:07:... Start Date: 12/29/23 Status: Ordered Ventolin HFA 108 mcg/inh inhalation aerosol with adapter 2 puffs, Inhalation, Every 4 hours, PRN NEEDED FOR WHEEZING, # 18 Gm, 0 Refills, Maintenance, 07/27/23 16:41:00 EST, [facility] 1967, 175, cm, 06/29/23 15:47:00 [...] Name: Cecilio Cornejo RN Position: [facility] RN Member Role: Primary Care Nurse Name: Lori Cervantes NP Position: [facility] PCO Associate Professional Member Role: PCP Address: Address: [address] [place] [id number] Name: Scotty Sosa RN Position: S RN Member Role: Primary Care Nurse Name: Blanka RN, Nelson Position: [facility] ED RN W/OE and Tasks Member Role: Primary Care Nurse Name: Fiona Gillis RN Position: [facility] JOELLEN Office Staff Member Role: Primary Care Nurse Name: Eve Roy RN Position: [facility] RN Member Role: Primary Care Nurse Care Team Related Persons Name: BRAD DOMINGO Address: home [address] [place] [address] Name: CHACORTA DOMINGO Address: home [address] [place] [address] Name: DAMION MENARD Address: [place] [address]
--- OUTSIDE RECORDS SUMMARY | 2024-02-04 13:13 | XMS_ITS | Continuity of Care Document ---
Author Organization [facility] Address [address] [facility], [address] Floor, [address] [place] [address]- Care Team Providers Care Tenter Feeder Name Role Phone Lori Cervantes NP Primary Care Physician [phone] Encounter [facility] Date(s): 12/03/23 - 01/02/24 [facility] [address] [facility] [address] [place], [place] [address] Attending Physician: Admtr, Ar8 Admitting Physician: Admtr, Ar8 Referring Physician: Admtr, Ar8 Allergies, Adverse Reactions, Alerts Substance Reaction Severity Status papaya Active Bee Stings Active Immunizations Given and Recorded Vaccine Date Status Refusal Reason SARS-CoV-2(COVID-19)mRNA-LNP vac([id number]) 04/27/23 Recorded influenza virus vaccine, inactivated 04/16/23 [...] tablet, 5 Refills, Maintenance, 09/21/23 14:53:00 EDT, [facility], 175, cm, 07/30/23 16:40:00 EST, Height, 126, kg, 09/03/22 22:49:00 EST, DryWeight Start Date: 09/21/23 Status: Ordered furosemide 20 mg oral tablet 1, tablet, By Mouth, Daily, # 90 tablet, Refills 0, Maintenance, 08/27/23 7:12:00 EST, Route to Pharmacy Electronically, [facility] 1967, 175, cm, 07/30/23 16:40:00 EST, Height, 126, kg, 09/03/22 22:49:00 EST, Dry Weight Start Date: 08/27/23 Stop Date: 11/25/23 Status: Ordered levETIRAcetam 1000 mg oral tablet 1 tablet = 1,000 mg, By Mouth, 2 times a day, # 60 tablet, 11 Refills, Maintenance, 12/03/23 15:17:00 EDT, Tablet, [facility] 1967, Partial fill upon patient request, 175, cm, 12/03/23 15:03:00EDT, Height, 120.8, kg, 11/09/23 11:07:00 EDT, Dry... Start Date: 12/03/23 Stop Date: 11/27/24 Status: Ordered Lexapro 20 mg oral tablet 1 tablet = 20 mg, By Mouth, Daily, # 90 tablet, 3 Refills, Maintenance, 08/03/23 12:52:00 EST, [facility], Partial fill upon patient request if the prescription is for a schedule II opioiddrug., 175, cm, 07/30/23 16:40:00 EST, Height, 126,... Start Date: 08/03/23 Stop Date: 07/28/24 Status: Ordered MiraLax oral powder for reconstitution = 17 Gm, By Mouth, Daily, dissolve in water before taking, # 527 Gm, 0 Refills, Maintenance, 09/03/22 23:10:00 EST, REC Powder, [facility] 1966, Partial fill upon patient [...] 12/29/23 16:28:00 EDT, [facility], 175, cm, 12/03/23 15:03:00 EDT, Height, 120.8, kg, 11/09/23 11:07:... Start Date: 12/29/23 Status: Ordered Ventolin HFA 108 mcg/inh inhalation aerosol with adapter 2 puffs, Inhalation, Every 4 hours, PRN NEEDED FOR WHEEZING, # 18 Gm, 0 Refills, Maintenance, 07/27/23 16:41:00 EST, [facility], 175, cm, 06/29/23 15:47:00 EST, [...] Care team information Care Team Personnel Name: Cecliio Cornejo RN Position: [facility] RN Member Role: Primary Care Nurse Name: Lori Cervantes NP Position: [facility] PCO Associate Professional Member Role: PCP Address: Address: [address] [place] [id number] Name: Ian CORTÉS, Scotty Shultz Position: [facility] RN Member Role: Primary Care Nurse Name: Blanka RNNelson Position: [facility] ED RN W/OE and Tasks Member Role: Primary Care Nurse Name: Fiona Gillis RN Position: [facility] JOELLEN Office Staff Member Role: Primary Care Nurse Name: Eve Roy RN Position: [facility] RN Member Role: Primary Care Nurse Care Team Related Persons Name: JOSE LBRAD JOSE Address: home [address] [place] [address] Name: CHACORTA DOMINGO Address: home [address] [place] [address] Name: DAMION MENARD Address: [place] [address]
== END 2024-02-04 13:12 | disposition home or self-care (01) ==
LOC: HO.HBS 13:05
PROVIDERS: PCP Nurse Practitioner Family; Visit Provider Physician Assistant Surgical
DX: E66.9 Obesity, unspecified (principal)
CPT/HCPCS: 99213

== ENCOUNTER → 2024-02-04 13:05 | Outpatient (BNVA) | payer OTHER, SELFPAY | PROVIDERS: PCP Nurse Practitioner Family; Visit Provider Physician Assistant Surgical | DX: E66.9 Obesity, unspecified (principal) ==

== ENCOUNTER 2024-03-17 13:00 | Outpatient (AMB) | payer OTHER, SELFPAY ==
--- NOTE | 2024-03-17 13:06 | MHC.OFFVISWM ---
VS Expanded 03/17/24 13:07 Height 5 ft 9 in Weight 243 lb 7 oz BMI 35.9 Body Fat % 46 Body Fat Mass 112.1 Fat Free Mass 131.5 Visceral Fat Rating 17 Body Water % 37 Body Water Mass 90.1 Muscle Mass/Score 123.5 Intake Visit Reasons: TV F/U SWL Academic Interventionist Required: No Allergies No Known Allergies [No Known Allergies*] Allergy (Verified 07/09/23 09:39) Medication List - Last Reconciled 03/17/24 by BRITTANY Nathan apixaban (Eliquis) 5 mg PO BID bisacodyl (Dulcolax (bisacodyl)) 10 mg OK DAILY PRN bupropion HCl SR (Wellbutrin SR) 150 mg PO BID cholecalciferol (vitamin D3) 125 mcg PO DAILY 90 days escitalopram oxalate 20 mg PO DAILY iron,carbonyl-vitamin C 65 mg iron- 125 mg (Vitron-C) 1 tab PO DAILY 90 days levetiracetam (Keppra) 1,000 mg PO BID sennosides (senna) 17.2 mg (2 x 8.6 mg) PO BEDTIME PRN vitamin A palmitate 3,000 mcg PO DAILY 60 days HPI Comments Details: The patient is a pleasant 43 year old female who returns to the clinic for pre-operative surgical weight loss management. Today's weight is 243.7 pounds and BMI is 35.9. There has been a weight loss of 35.7 pounds since initiating the surgical weight loss program on 05/14/23 with a total body weight loss of 12.7 %. Pre op work up completed as follows: SWL classes:? 02/02 BH appts: 07/08/23-cleared? RD appts: cleared-06/14/23 Labs: 05/07/23-low A, D, mild iron def anemia H. pylori: 05/19/23-neg CXR: 06/23/23-nad EK07/09/23-normal ABD U/S: 07/28/23-fatty liver UGI: 07/23/23-mild ge junction narrowing She states that she has had several adjustments to her behavioral health medications. She is now more stabilized, focusing on herself, interested in improving her own health. She is maintained consistently going to the gym and following the meal plan. Ultimately, we will follow her for the next several months and potentially transfer to Dr. Salinas for continued ongoing preop surgical weight loss management. She states that she has a history of pulmonary embolism while about 7 or 8 years ago. She had another one 3 months after delivery. She is followed by Dr. Vizcarra of Hematology at [facility]. She had her appointment 10/20/23 and was told that she should remain on Eliquis lifelong. She will need bridge therapy for her procedure. Awaiting formal note from her specialty sales consultant. She state that she feels good. She denies any issues. She is following the meal plan Current meal plan includes: 2 celebrate rebuild shakes, (2 scoops in 20 oz unsweetened almond milk) at 6am-8am, another shake 1/2 at 11-1 and 1/2 at 2-4 She may have half cup fresh fruit (berries, apple, orange, kiwi) Dinner at 6pm (10 forks of protein and 10 forks of salad/vegetables). Drinking 64 oz of water Current exercise plan includes: walking daily around track outside, 5 days per week, 600 johan PFSH Medical History Hypothyroidism Depression GERD (gastroesophageal reflux disease) Pulmonary embolism Epilepsy Morbid obesity Surgical History History of laparoscopic cholecystectomy History of laparoscopic appendectomy Family History Father Coronary artery disease Hypertension Diabetes mellitus Mother Breast cancer Hypertension Daughter No problems noted. Son Asthma Food allergy Son Asthma Food allergy Son Food allergy Asthma Daughter No problems noted. Social History Alcohol intake: current Alcohol intake frequency: holidays/special occasions only Patient Tobacco Use Status: Never used Tobacco Telehealth Telehealth Telehealth Platform: Telephone Location of provider rendering services: practice address Location of patient: address on file Patient Identification confirmed using: Name, : Yes Telehealth method: voice only Patient verbally consented to treatment: Yes Patient verbally consented to billing insurance company: Yes Patient informed of any privacy concerns related to visit: Yes Minutes spent on Phone/Video with Pt.: 15 Assessment & Plan Assessment & Plan (1) Obesity: Code(s): E66.9 - Obesity, unspecified Category: Medical Plan: 2 celebrate rebuild shakes, (2 scoops in 20 oz unsweetened almond milk) at 6am-8am, another shake 1/2 at 11-1 and 1/2 at 2-4 She may have half cup fresh fruit (berries, apple, orange, kiwi) Dinner at 6pm (8 forks of protein and 8 forks of salad/vegetables). She has lost 12.7% total body weight loss since initiating the program about 10 months ago. There was a period of time over the last 10 months where there was a stall due to medical issues but she has since recommended and has been communicative. We will transfer her to Dr. Salinas for continued preoperative care
[2024-03-17 13:07] VITALS: BMI 35.9
--- OUTSIDE RECORDS SUMMARY | 2024-03-17 13:12 | XMS_ITS | Continuity of Care Document ---
Demographics Address [address] [place] [address] Mobile Email Address Email Address Preferred Language French Marital Status Sabianism Affiliation None Race Black or Elham rican Additional Race(s) Black or Elham rican Ethnic Group Not or Lati no Author Organization [facility] Address [address] [place] [address]- Care Team Providers Care Optometrist Assistant Name Role Phone Lori Cervantes NP Primary Care Physician [place] [facility](s): 02/04/24 - 03/05/24 [facility] [address] [place] [id number] Attending Physician: Admtr, Ar8 Admitting Physician: Admtr, Ar8 Referring Physician: Admtr, Ar8 Allergies, Adverse Reactions, Alerts Substance Reaction Severity Status papaya Active Bee Stings Active Immunizations Given and Recorded Vaccine Date Status Refusal Reason SARS-CoV-2(COVID-19)mRNA-LNP vac([id number]) 04/27/23 Recorded influenza virus vaccine, inactivated 04/16/23 [...] Daily, # 28 capsule, 0 Refills, Maintenance, 02/18/24 16:58:00 EDT, [facility] 1966, Partial fill upon patient request if the prescription is for a schedule II opioid drug., 1 capsule By Mouth Daily,x28 d... Start Date: 02/18/24 Stop Date: 03/17/24 Status: Ordered Compression Stockings See Instructions, # 2 each, Refills 2, Tot. Refills 2, Maintenance, surgical, knee length 20-30 mm Hg, 06/23/21 8:35:00 EST, Supply Start Date: 06/23/21 Status: Ordered Eliquis 2.5 mg oral tablet 1 tablet, By Mouth, 2 times a day, # 60 tablet, 5 Refills, Maintenance, 09/21/23 14:53:00 EDT, [facility], 175, cm, 07/30/23 16:40:00 EST, Height, 126, kg, 09/03/22 22:49:00 EST, DryWeight Start Date: 09/21/23 Status: Ordered furosemide 20 mg oral tablet 1, tablet, By Mouth, Daily, # 90 tablet, Refills 0, Maintenance, 08/27/23 7:12:00 EST, Route to Pharmacy Electronically, [facility] 1967, 175, cm, 07/30/23 16:40:00 EST, Height, 126, kg, 09/03/22 22:49:00 EST, Dry Weight Start Date: 08/27/23 Stop Date: 11/25/23 Status: Ordered levETIRAcetam 1000 mg oral tablet 1 tablet = 1,000 mg, By Mouth, 2 times a day, # 60 tablet, 11 Refills, Maintenance, 12/03/23 15:17:00 EDT, Tablet, [facility] 1967, Partial fill upon patient request, 175, cm, 12/03/23 15:03:00EDT, Height, 120.8, kg, 11/09/23 11:07:00 EDT, Dry... Start Date: 12/03/23 Stop Date: 11/27/24 Status: Ordered Lexapro 20 mg oral tablet 1 tablet = 20 mg, By Mouth, Daily, # 90 tablet, 3 Refills, Maintenance, 08/03/23 12:52:00 EST, [facility] 1967, Partial fill upon patient request if the prescription is for a schedule II opioiddrug., 175, cm, 07/30/23 16:40:00 EST, Height, 126,... Start Date: 08/03/23 Stop Date: 07/28/24 Status: Ordered MiraLax oral powder for reconstitution = 17 Gm, By Mouth, Daily, dissolve in water before taking, # 527 Gm, 0 Refills, Maintenance, 09/03/22 23:10:00 EST, REC Powder, [facility] 1967, Partial fill upon patient [...] 12/29/23 16:28:00 EDT, Route to Pharmacy Electronically, [facility] 1967, 175, cm, 12/03/23 15:03:00 EDT, Height, 120.8, kg, 11/09/23 11:07:... Start Date: 12/29/23 Status: Ordered Ventolin HFA 108 mcg/inh inhalation aerosol with adapter 2 puffs, Inhalation, Every 4 hours, PRN NEEDED FOR WHEEZING, # 18 Gm, 0 Refills, Maintenance, 07/27/23 16:41:00 EST, [facility], 175, cm, 06/29/23 15:47:00 [...] Care Nurse Name: Lori Cervantes NP Position: [facility] PCO Associate Professional Member Role: PCP Address: Address: [address] [place] [id number]- [place] Name: Ian CORTÉS, Scotty Shultz Position: [facility] RN Member Role: Primary Care Nurse Name: Blanka RNNelson Position: [facility] ED RN W/OE and Tasks Member Role: Primary Care Nurse Name: Fiona Gillis RN Position: [facility] JO[facility]LLEN Office Staff Member Role: Primary Care Nurse Name: Eve Roy RN Position: [facility] RN Member Role: Primary Care Nurse Care Team Related Persons Name: BRAD DOMINGO Address: home [address] [place] [address] Name: JOSE L CHACORTA Address: home [address] [place] [address] Name: DAMION MENARD Address: [place] [address]
--- OUTSIDE RECORDS SUMMARY | 2024-03-17 13:12 | XMS_ITS | Continuity of Care Document ---
Demographics Address [address] [place] [address] Mobile Email Address Email Address Preferred Language Albanian Marital Status Synagogue Affiliation None Race Black or Elham rican Additional Race(s) Black or Elham rican Ethnic Group Not or Lati no Author Organization [facility] ter Address [address] [place] [address]- Care Team Providers Care Plastic Sewer Name Role Phone Lori Cervantes NP Primary Care Physician [phone] Encounter [facility] Date(s): 08/10/23 - 03/09/[address] [address] Attending Physician: Lori Cervantes NP Admitting Physician: Lori Cervantes NP Referring Physician: Lori Cervantes NP Allergies, Adverse Reactions, Alerts Substance Reaction Severity Status papaya Active Bee Stings Active Immunizations Given and Recorded Vaccine Date Status Refusal Reason SARS-CoV-2(COVID-19)mRNA-LNP vac([id number]) 04/27/23 Recorded influenza virus vaccine, inactivated 04/16/23 [...] tablet, 5 Refills, Maintenance, 09/21/23 14:53:00 EDT, [facility], 175, cm, 07/30/23 16:40:00 EST, Height, 126, kg, 09/03/22 22:49:00 EST, DryWeight Start Date: 09/21/23 Status: Ordered furosemide 20 mg oral tablet 1, tablet, By Mouth, Daily, # 90 tablet, Refills 0, Maintenance, 08/27/23 7:12:00 EST, Route to Pharmacy Electronically, [facility] 1967, 175, cm, 07/30/23 16:40:00 EST, Height, 126, kg, 09/03/22 22:49:00 EST, Dry Weight Start Date: 08/27/23 Stop Date: 11/25/23 Status: Ordered levETIRAcetam 1000 mg oral tablet 1 tablet = 1,000 mg, By Mouth, 2 times a day, # 60 tablet, 11 Refills, Maintenance, 12/03/23 15:17:00 EDT, Tablet, [facility] 1967, Partial fill upon patient request, 175, cm, 12/03/23 15:03:00EDT, Height, 120.8, kg, 11/09/23 11:07:00 EDT, Dry... Start Date: 12/03/23 Stop Date: 11/27/24 Status: Ordered Lexapro 20 mg oral tablet 1 tablet = 20 mg, By Mouth, Daily, # 90 tablet, 3 Refills, Maintenance, 08/03/23 12:52:00 EST, [facility] 1967, Partial fill upon patient request if the prescription is for a schedule II opioiddrug., 175, cm, 07/30/23 16:40:00 EST, Height, 126,... Start Date: 08/03/23 Stop Date: 07/28/24 Status: Ordered MiraLax oral powder for reconstitution = 17 Gm, By Mouth, Daily, dissolve in water before taking, # 527 Gm, 0 Refills, Maintenance, 09/03/22 23:10:00 EST, REC Powder, [facility] 1967, Partial fill upon patient request [...] 12/29/23 16:28:00 EDT, Route to Pharmacy Electronically, [facility] 1966, 175, cm, 12/03/23 15:03:00 EDT, Height, 120.8, kg, 11/09/23 11:07:... Start Date: 12/29/23 Status: Ordered Ventolin HFA 108 mcg/inh inhalation aerosol with adapter 2 puffs, Inhalation, Every 4 hours, PRN NEEDED FOR WHEEZING, # 18 Gm, 0 Refills, Maintenance, 07/27/23 16:41:00 EST, [facility] 1966, 175, cm, 06/29/23 15:47:00 EST, [...] Associate Professional Member Role: PCP Address: Address: [address] [place] [id number] Name: Ian CORTÉS, Scotty Shultz Position: [facility] RN Member Role: Primary Care Nurse Name: Blanka RNNelson Position: [facility] ED RN W/OE and Tasks Member Role: Primary Care Nurse Name: Fiona Gillis RN Position: [facility] [place] Office Staff Member Role: Primary Care Nurse Name: Eve Roy RN Position: [facility] RN Member Role: Primary Care Nurse Care Team Related Persons Name: BRAD DOMINGO Address: home [address] [place] [address] Name: CHACORTA DOMINGO Address: home [address] [place] [address] Name: DAMION MENARD Address: [place] [address]
--- OUTSIDE RECORDS SUMMARY | 2024-03-17 13:14 | XMS_ITS | Continuity of Care Document ---
Author Organization [facility] Adult Address [address] [place] [address]- Care Team Providers Care Cement Conveyor Operator Name Role Phone Lori Cervantes NP Primary Care Physician [phone] Encounter [facility] [place] Date(s): 01/13/24 - 02/12/[address] [address]- Allergies, Adverse Reactions, Alerts Substance Reaction Severity Status papaya Active Bee Stings Active Immunizations Given and Recorded Vaccine Date Status Refusal Reason SARS-CoV-2(COVID-19)mRNA-LNP vac([id number]) 04/27/23 Recorded influenza virus vaccine, inactivated 04/16/23 [...] 0 Refills, Maintenance, 01/07/24 8:41:00 EDT, Capsule, [facility] 1966, Partial fill upon patient [...] tablet, 5 Refills, Maintenance, 09/21/23 14:53:00 EDT, [facility], 175, cm, 07/30/23 16:40:00 EST, Height, 126, kg, 09/03/22 22:49:00 EST, DryWeight Start Date: 09/21/23 Status: Ordered furosemide 20 mg oral tablet 1, tablet, By Mouth, Daily, # 90 tablet, Refills 0, Maintenance, 08/27/23 7:12:00 EST, Route to Pharmacy Electronically, [facility] 1967, 175, cm, 07/30/23 16:40:00 EST, Height, 126, kg, 09/03/22 22:49:00 EST, Dry Weight Start Date: 08/27/23 Stop Date: 11/25/23 Status: Ordered levETIRAcetam 1000 mg oral tablet 1 tablet = 1,000 mg, By Mouth, 2 times a day, # 60 tablet, 11 Refills, Maintenance, 12/03/23 15:17:00 EDT, Tablet, [facility] 1967, Partial fill upon patient request, 175, cm, 12/03/23 15:03:00EDT, Height, 120.8, kg, 11/09/23 11:07:00 EDT, Dry... Start Date: 12/03/23 Stop Date: 11/27/24 Status: Ordered Lexapro 20 mg oral tablet 1 tablet = 20 mg, By Mouth, Daily, # 90 tablet, 3 Refills, Maintenance, 08/03/23 12:52:00 EST, [facility] 1967, Partial fill upon patient request if the prescription is for a schedule II opioiddrug., 175, cm, 07/30/23 16:40:00 EST, Height, 126,... Start Date: 08/03/23 Stop Date: 07/28/24 Status: Ordered MiraLax oral powder for reconstitution = 17 Gm, By Mouth, Daily, dissolve in water before taking, # 527 Gm, 0 Refills, Maintenance, 09/03/22 23:10:00 EST, REC Powder, [facility] 1967, Partial fill upon patient [...] 12/29/23 16:28:00 EDT, Route to Pharmacy Electronically, [facility] 1967, 175, cm, 12/03/23 15:03:00 EDT, Height, 120.8, kg, 11/09/23 11:07:... Start Date: 12/29/23 Status: Ordered Ventolin HFA 108 mcg/inh inhalation aerosol with adapter 2 puffs, Inhalation, Every 4 hours, PRN NEEDED FOR WHEEZING, # 18 Gm, 0 Refills, Maintenance, 07/27/23 16:41:00 EST, [facility] 1967, 175, cm, 06/29/23 15:47:00 [...] Team Personnel Name: Cecilio Cornejo RN Position: [facility] RN Member Role: Primary Care Nurse Name: Lori Cervantes NP Position: [facility] PCO Associate Professional Member Role: PCP Address: Address: [address] [place] [id number] Name: Scotty Sosa RN Position: S RN Member Role: Primary Care Nurse Name: Blanka RN, Nelson Position: [facility] ED RN W/OE and Tasks Member Role: Primary Care Nurse Name: Fiona Gillis RN Position: [facility] Office Staff Member Role: Primary Care Nurse Name: Eve Roy RN Position: [facility] RN Member Role: Primary Care Nurse Care Team Related Persons Name: BRAD DOMINGO Address: home [address] [place] [address] Name: CHACORTA DOMINGO Address: home [address] [place] [address] Name: DAMION MENARD Address: [place] [address]
--- OUTSIDE RECORDS SUMMARY | 2024-03-17 13:16 | XMS_ITS | Continuity of Care Document ---
Author Organization [facility] Adult Address [address] [place] [address]- Care Team Providers Care Vb Developer Name Role Phone Lori Cervantes NP Primary Care Physician Encounter [facility] Date(s): 01/06/24 - 02/05/[address] [address]- Allergies, Adverse Reactions, Alerts Substance Reaction Severity Status papaya Active Bee Stings Active Immunizations Given and Recorded Vaccine Date Status Refusal Reason SARS-CoV-2(COVID-19)mRNA-LNP vac([id number]) 04/27/23 Recorded influenza virus vaccine, inactivated 04/16/23 [...] 0 Refills, Maintenance, 01/07/24 8:41:00 EDT, Capsule, [facility] 1966, Partial fill upon [...] tablet, 5 Refills, Maintenance, 09/21/23 14:53:00 EDT, [facility], 175, cm, 07/30/23 16:40:00 EST, Height, 126, kg, 09/03/22 22:49:00 EST, DryWeight Start Date: 09/21/23 Status: Ordered furosemide 20 mg oral tablet 1, tablet, By Mouth, Daily, # 90 tablet, Refills 0, Maintenance, 08/27/23 7:12:00 EST, Route to Pharmacy Electronically, [facility] 1967, 175, cm, 07/30/23 16:40:00 EST, Height, 126, kg, 09/03/22 22:49:00 EST, Dry Weight Start Date: 08/27/23 Stop Date: 11/25/23 Status: Ordered levETIRAcetam 1000 mg oral tablet 1 tablet = 1,000 mg, By Mouth, 2 times a day, # 60 tablet, 11 Refills, Maintenance, 12/03/23 15:17:00 EDT, Tablet, [facility] 1967, Partial fill upon patient request, 175, cm, 12/03/23 15:03:00EDT, Height, 120.8, kg, 11/09/23 11:07:00 EDT, Dry... Start Date: 12/03/23 Stop Date: 11/27/24 Status: Ordered Lexapro 20 mg oral tablet 1 tablet = 20 mg, By Mouth, Daily, # 90 tablet, 3 Refills, Maintenance, 08/03/23 12:52:00 EST, [facility] 1967, Partial fill upon patient request if the prescription is for a schedule II opioiddrug., 175, cm, 07/30/23 16:40:00 EST, Height, 126,... Start Date: 08/03/23 Stop Date: 07/28/24 Status: Ordered MiraLax oral powder for reconstitution = 17 Gm, By Mouth, Daily, dissolve in water before taking, # 527 Gm, 0 Refills, Maintenance, 09/03/22 23:10:00 EST, REC Powder, [facility] 1967, Partial fill upon [...] 12/29/23 16:28:00 EDT, Route to Pharmacy Electronically, [facility] 1967, 175, cm, 12/03/23 15:03:00 EDT, Height, 120.8, kg, 11/09/23 11:07:... Start Date: 12/29/23 Status: Ordered Ventolin HFA 108 mcg/inh inhalation aerosol with adapter 2 puffs, Inhalation, Every 4 hours, PRN NEEDED FOR WHEEZING, # 18 Gm, 0 Refills, Maintenance, 07/27/23 16:41:00 EST, [facility], 175, cm, 06/29/23 15:47:00 [...] Team Personnel Name: Cecilio Cornejo RN Position: [facility] RN Member Role: Primary Care Nurse Name: Lori Cervantes NP Position: [facility] PCO Associate Professional Member Role: PCP Address: Address: [address] [place] [id number] Name: Scotty Sosa RN Position: S RN Member Role: Primary Care Nurse Name: Blanka RN, Nelson Position: [facility] ED RN W/OE and Tasks Member Role: Primary Care Nurse Name: Fiona Gillis RN Position: [facility] Office Staff Member Role: Primary Care Nurse Name: Eve Roy RN Position: [facility] RN Member Role: Primary Care Nurse Care Team Related Persons Name: BRAD DOMINGO Address: home [address] [place] [address] Name: CHACORTA DOMINGO Address: home [address] [place] [address] Name: DAMION MENARD Address: [place] [address]
--- OUTSIDE RECORDS SUMMARY | 2024-03-17 13:19 | XMS_ITS | Continuity of Care Document ---
Author Organization [facility] Adult Address [address] [place] [address]- Care Team Providers Care Aerial Sprayer Name Role Phone Lori Cervantes NP Primary Care Physician Encounter [facility] [place] Date(s): 01/11/24 - 02/10/[address] [address]- Allergies, Adverse Reactions, Alerts Substance Reaction Severity Status papaya Active Bee Stings Active Immunizations Given and Recorded Vaccine Date Status Refusal Reason SARS-CoV-2(COVID-19)mRNA-LNP vac([id number]) 04/27/23 Recorded influenza virus vaccine, inactivated 04/16/23 [...] 0 Refills, Maintenance, 01/07/24 8:41:00 EDT, Capsule, [facility] 1966, Partial fill upon [...] tablet, 5 Refills, Maintenance, 09/21/23 14:53:00 EDT, [facility], 175, cm, 07/30/23 16:40:00 EST, Height, 126, kg, 09/03/22 22:49:00 EST, DryWeight Start Date: 09/21/23 Status: Ordered furosemide 20 mg oral tablet 1, tablet, By Mouth, Daily, # 90 tablet, Refills 0, Maintenance, 08/27/23 7:12:00 EST, Route to Pharmacy Electronically, [facility] 1967, 175, cm, 07/30/23 16:40:00 EST, Height, 126, kg, 09/03/22 22:49:00 EST, Dry Weight Start Date: 08/27/23 Stop Date: 11/25/23 Status: Ordered levETIRAcetam 1000 mg oral tablet 1 tablet = 1,000 mg, By Mouth, 2 times a day, # 60 tablet, 11 Refills, Maintenance, 12/03/23 15:17:00 EDT, Tablet, [facility] 1967, Partial fill upon patient request, 175, cm, 12/03/23 15:03:00EDT, Height, 120.8, kg, 11/09/23 11:07:00 EDT, Dry... Start Date: 12/03/23 Stop Date: 11/27/24 Status: Ordered Lexapro 20 mg oral tablet 1 tablet = 20 mg, By Mouth, Daily, # 90 tablet, 3 Refills, Maintenance, 08/03/23 12:52:00 EST, [facility] 1967, Partial fill upon patient request if the prescription is for a schedule II opioiddrug., 175, cm, 07/30/23 16:40:00 EST, Height, 126,... Start Date: 08/03/23 Stop Date: 07/28/24 Status: Ordered MiraLax oral powder for reconstitution = 17 Gm, By Mouth, Daily, dissolve in water before taking, # 527 Gm, 0 Refills, Maintenance, 09/03/22 23:10:00 EST, REC Powder, [facility] 1967, Partial fill upon [...] 12/29/23 16:28:00 EDT, Route to Pharmacy Electronically, [facility] 1967, 175, cm, 12/03/23 15:03:00 EDT, Height, 120.8, kg, 11/09/23 11:07:... Start Date: 12/29/23 Status: Ordered Ventolin HFA 108 mcg/inh inhalation aerosol with adapter 2 puffs, Inhalation, Every 4 hours, PRN NEEDED FOR WHEEZING, # 18 Gm, 0 Refills, Maintenance, 07/27/23 16:41:00 EST, [facility] 1967, 175, cm, 06/29/23 [...] Team Personnel Name: Cecilio Cornejo RN Position: [facility] RN Member Role: Primary Care Nurse Name: Lori Cervantes NP Position: [facility] PCO Associate Professional Member Role: PCP Address: Address: [address] [place] [id number] Name: Scotty Sosa RN Position: S RN Member Role: Primary Care Nurse Name: Blanka RN, Nelson Position: [facility] ED RN W/OE and Tasks Member Role: Primary Care Nurse Name: Fiona Gillis RN Position: [facility] Office Staff Member Role: Primary Care Nurse Name: Eve Roy RN Position: [facility] RN Member Role: Primary Care Nurse Care Team Related Persons Name: BRAD DOMINGO Address: home [address] [place] [address] Name: CHACORTA DOMINGO Address: home [address] [place] [address] Name: DAMION MENARD Address: [place] [address]
== END 2024-03-17 13:21 | disposition home or self-care (01) ==
LOC: HO.HBS 13:10
PROVIDERS: PCP Nurse Practitioner Family; Visit Provider Physician Assistant Surgical
DX: E66.9 Obesity, unspecified (principal)
CPT/HCPCS: 99213

== ENCOUNTER → 2024-03-17 13:00 | Outpatient (BNVA) | payer OTHER, SELFPAY | PROVIDERS: PCP Nurse Practitioner Family; Visit Provider Physician Assistant Surgical | DX: E66.9 Obesity, unspecified (principal) ==

== ENCOUNTER 2024-04-14 07:59 | Outpatient (AMB) | payer OTHER, SELFPAY ==
--- OUTSIDE RECORDS SUMMARY | 2024-04-14 08:02 | XMS_ITS | Continuity of Care Document ---
Author Organization [facility] Adult Address [address] [place] [address]- Care Team Providers Care Job Counselor Name Role Phone Lori Cervantes NP Primary Care Physician Encounter [facility] [place] Date(s): 03/09/24 - 04/08/24 [facility] [address] [place] [address]- Allergies, Adverse Reactions, Alerts Substance Reaction Severity Status papaya Active Bee Stings Active Immunizations Given and Recorded Vaccine Date Status Refusal Reason SARS-CoV-2(COVID-19)mRNA-LNP vac([id number]) 04/27/23 Recorded influenza virus vaccine, inactivated 04/16/23 [...] Daily, # 28 capsule, 0 Refills, Maintenance, 03/24/24 14:57:00 EDT, [facility] 1966, Partial fill upon patient request if the prescription is for a schedule II opioid drug., 1 capsule By Mouth Daily,x28 d... Start Date: 03/24/24 Stop Date: 04/21/24 Status: Ordered Compression Stockings See Instructions, # 2 each, Refills 2, Tot. Refills 2, Maintenance, surgical, knee length 20-30 mm Hg, 06/23/21 8:35:00 EST, Supply Start Date: 06/23/21 Status: Ordered Eliquis 2.5 mg oral tablet 1 tablet, By Mouth, 2 times a day, # 60 tablet, 5 Refills, Maintenance, 09/21/23 14:53:00 EDT, [facility], 175, cm, 07/30/23 16:40:00 EST, Height, 126, kg, 09/03/22 22:49:00 EST, DryWeight Start Date: 09/21/23 Status: Ordered furosemide 20 mg oral tablet 1, tablet, By Mouth, Daily, # 90 tablet, Refills 0, Maintenance, 08/27/23 7:12:00 EST, Route to Pharmacy Electronically, [facility] 1967, 175, cm, 07/30/23 16:40:00 EST, Height, 126, kg, 09/03/22 22:49:00 EST, Dry Weight Start Date: 08/27/23 Stop Date: 11/25/23 Status: Ordered levETIRAcetam 1000 mg oral tablet 1 tablet = 1,000 mg, By Mouth, 2 times a day, # 60 tablet, 11 Refills, Maintenance, 12/03/23 15:17:00 EDT, Tablet, [facility] 1966, Partial fill upon patient request, 175, cm, 12/03/23 15:03:00EDT, Height, 120.8, kg, 11/09/23 11:07:00 EDT, Dry... Start Date: 12/03/23 Stop Date: 11/27/24 Status: Ordered Lexapro 20 mg oral tablet 1 tablet = 20 mg, By Mouth, Daily, # 90 tablet, 3 Refills, Maintenance, 08/03/23 12:52:00 EST, [facility] 1966, Partial fill upon patient request if the prescription is for a schedule II opioiddrug., 175, cm, 07/30/23 16:40:00 EST, Height, 126,... Start Date: 08/03/23 Stop Date: 07/28/24 Status: Ordered Macrobid macrocrystals-monohydrate 100 mg oral capsule 1 capsule = 100 mg, By Mouth, 2 times a day, for 5 days, # 10 capsule, 0 Refills, Acute 04/10/24 9:47:00 EDT, 04/05/24 9:47:00 EDT, Capsule, [facility] 1966, Partial fill upon patient request if the prescription is for a schedule II opioid drug.... Start Date: 04/05/24 Stop Date: 04/10/24 Status: Ordered MiraLax oral powder for reconstitution = 17 Gm, By Mouth, Daily, dissolve in water before taking, # 527 Gm, 0 Refills, Maintenance, 09/03/22 23:10:00 EST, REC Powder, [facility] 1966, Partial fill upon patient request [...] 12/29/23 16:28:00 EDT, Route to Pharmacy Electronically, [facility], 175, cm, 12/03/23 15:03:00 EDT, Height, 120.8, kg, 11/09/23 11:07:... Start Date: 12/29/23 Status: Ordered Ventolin HFA 108 mcg/inh inhalation aerosol with adapter 2 puffs, Inhalation, Every 4 hours, PRN NEEDED FOR WHEEZING, # 18 Gm, 0 Refills, Maintenance, 07/27/23 16:41:00 EST, [facility], 175, cm, 06/29/23 15:47:00 EST, [...] Team Personnel Name: Cecilio Cornejo RN Position: [facility] RN Member Role: Primary Care Nurse Name: Lori Cervantes NP Position: [facility] PCO Associate Professional Member Role: PCP Address: Address: [address] [place] [address] Name: Scotty Sosa RN Position: [facility] RN Member Role: Primary Care Nurse Name: Nelson Moscoso RN Position: [facility] ED RN W/OE and Tasks Member Role: Primary Care Nurse Name: Fiona Gillis RN Position: [facility] Office Staff Member Role: Primary Care Nurse Name: Eve Roy RN Position: [facility] RN Member Role: Primary Care Nurse Care Team Related Persons Name: BRAD DOMINGO Address: home [address] [place] [address] Name: CHACORTA DOMINGO Address: home [address] [place] [address] Name: DAMION MENARD Address: [place] [address]
--- OUTSIDE RECORDS SUMMARY | 2024-04-14 08:03 | XMS_ITS | Continuity of Care Document ---
Author Organization [facility] Adult Address [address] [place] [address]- Care Team Providers Care Supervisor Cigar Processing Name Role Phone Lori Cervantes NP Primary Care Physician Encounter [facility] [place] Date(s): 02/18/24 - 03/19/[address] [address]- Allergies, Adverse Reactions, Alerts Substance Reaction Severity Status papaya Active Bee Stings Active Immunizations Given and Recorded Vaccine Date Status Refusal Reason SARS-CoV-2(COVID-19)mRNA-LNP vac([id number]) 04/27/23 Recorded influenza virus vaccine, inactivated 04/16/23 [...] 28 capsule, 0 Refills, Maintenance, 02/18/24 16:58:[facility], [facility] fill upon patient request [...] 5 Refills, Maintenance, 09/21/23 14:53:00 EDT, [facility], 175, cm, 07/30/23 16:40:00 EST, Height, 126, kg, 09/03/22 22:49:00 EST, DryWeight Start Date: 09/21/23 Status: Ordered furosemide 20 mg oral tablet 1, tablet, By Mouth, Daily, # 90 tablet, Refills 0, Maintenance, 08/27/23 7:12:00 EST, Route to Pharmacy Electronically, [facility] 1967, 175, cm, 07/30/23 16:40:00 EST, Height, 126, kg, 09/03/22 22:49:00 EST, Dry Weight Start Date: 08/27/23 Stop Date: 11/25/23 Status: Ordered levETIRAcetam 1000 mg oral tablet 1 tablet = 1,000 mg, By Mouth, 2 times a day, # 60 tablet, 11 Refills, Maintenance, 12/03/23 15:17:00 EDT, Tablet, [facility] 1967, Partial fill upon patient request, 175, cm, 12/03/23 15:03:00EDT, Height, 120.8, kg, 11/09/23 11:07:00 EDT, Dry... Start Date: 12/03/23 Stop Date: 11/27/24 Status: Ordered Lexapro 20 mg oral tablet 1 tablet = 20 mg, By Mouth, Daily, # 90 tablet, 3 Refills, Maintenance, 08/03/23 12:52:00 EST, [facility] 1967, Partial fill upon patient request if the prescription is for a schedule II opioiddrug., 175, cm, 07/30/23 16:40:00 EST, Height, 126,... Start Date: 08/03/23 Stop Date: 07/28/24 Status: Ordered MiraLax oral powder for reconstitution = 17 Gm, By Mouth, Daily, dissolve in water before taking, # 527 Gm, 0 Refills, Maintenance, 09/03/22 23:10:00 EST, REC Powder, [facility] 1967, Partial fill upon patient request [...] 12/29/23 16:28:00 EDT, Route to Pharmacy Electronically, [facility] 1967, 175, cm, 12/03/23 15:03:00 EDT, Height, 120.8, kg, 11/09/23 11:07:... Start Date: 12/29/23 Status: Ordered Ventolin HFA 108 mcg/inh inhalation aerosol with adapter 2 puffs, Inhalation, Every 4 hours, PRN NEEDED FOR WHEEZING, # 18 Gm, 0 Refills, Maintenance, 07/27/23 16:41:00 EST, [facility], 175, cm, 06/29/23 15:47:00 EST, [...] Professional Member Role: PCP Address: Address: [address] [place] [address] Name: Scotty Sosa RN Position: [facility] RN Member Role: Primary Care Nurse Name: Blanka RN, Nelson Position: [facility] ED RN W/OE and Tasks Member Role: Primary Care Nurse Name: Fiona Gillis RN Position: [facility] Office Staff Member Role: Primary Care Nurse Name: Eve Roy RN Position: [facility] RN Member Role: Primary Care Nurse Care Team Related Persons Name: BRAD DOMINGO Address: home [address] [place] [address] Name: CHACORTA DOMINGO Address: home [address] [place] [address] Name: DAMION MENARD Address: [place] [address]
--- NOTE | 2024-04-14 14:01 | A.OFFVIS_ITS ---
VS Expanded 04/14/24 14:22 Height 5 ft 9 in Weight 244 lb 6 oz BMI 36.1 Body Fat % 46.2 Body Fat Mass 113 Fat Free Mass 131.6 Visceral Fat Rating 17 Body Water % 36.9 Body Water Mass 90.2 Basal Metabolic Rate/Score 1,832 Intake Visit Reasons: TV Consult / Transfer Jacques Allergies No Known Allergies [No Known Allergies*] Allergy (Verified 04/14/24 14:01) Medication List - Last Reconciled 04/14/24 by Davi Salinas MD apixaban (Eliquis) 5 mg PO BID bisacodyl (Dulcolax (bisacodyl)) 10 mg OK DAILY PRN bupropion HCl SR (Wellbutrin SR) 150 mg PO BID cholecalciferol (vitamin D3) 125 mcg PO DAILY 90 days iron,carbonyl-vitamin C 65 mg iron- 125 mg (Vitron-C) 1 tab PO DAILY 90 days levetiracetam (Keppra) 1,000 mg PO BID sennosides (senna) 17.2 mg (2 x 8.6 mg) PO BEDTIME PRN vitamin A palmitate 3,000 mcg PO DAILY 60 days HPI HPI TV Consult / Transfer Jacques: Details: Start time: 1.46pm, End time: 2.26pm ?I spent 35 minutes speaking with the patient on the phone plus an additional 5 minutes reviewing and updating records for a total of 40 minutes HPI Comments Details: Overall weight loss: 34.8lbs, or 12.4% TBWL Is doing 2 Celebrate Rebuild protein shakes (2 scoops each in almond milk) and one meal (8 forks of protein and 8 forks of salad or vegetables) Exercise: outside walking x5/wk for 800 calories [facility] Medical History (Updated 04/14/24 @ 14:23 by Davi Salinas MD) Anxiety Obesity Hypothyroidism Depression GERD (gastroesophageal reflux disease) Pulmonary embolism Epilepsy Morbid obesity Surgical History History of laparoscopic cholecystectomy History of laparoscopic appendectomy Family History Father Coronary artery disease Hypertension Diabetes mellitus Mother Breast cancer Hypertension Daughter No problems noted. Son Asthma Food allergy Son Asthma Food allergy Son Food allergy Asthma Daughter No problems noted. Social History Alcohol intake: current Alcohol intake frequency: holidays/special occasions only Patient Tobacco Use Status: Never used Tobacco Telehealth Telehealth Telehealth Platform: Telephone Location of provider rendering services: practice address Location of patient: address on file Patient Identification confirmed using: Name, : Yes Telehealth method: voice only Patient verbally consented to treatment: Yes Patient verbally consented to billing insurance company: Yes Patient informed of any privacy concerns related to visit: Yes Minutes spent on Phone/Video with Pt.: 40 Assessment & Plan Assessment & Plan (1) Obesity: Code(s): E66.9 - Obesity, unspecified Category: Medical Qualifiers: Obesity type: due to excess calories Obesity classification: adult class 2 (BMI 35 - 39.9) Serious obesity comorbidity presence: with serious comorbidity Body mass index: BMI 36.0-36.9 Qualified Code(s): E66.812 - Obesity, class 2; E66.01 - Morbid (severe) obesity due to excess calories; Z68.36 - Body mass index [BMI] 36.0-36.9, adult Plan: 1. Plan for lap sleeve gastrectomy including upper GI endoscopy. All tests has been completed and reviewed and the patient is cleared for the surgery. ?If diaphragmatic or ventral hernias are present at time of surgery, these will be repaired laparoscopically as well. Risks and complications were discussed in detail including possible conversion to an open procedure, anastomotic leak, bleeding requiring transfusion, small bowel obstruction, , DVT and pulmonary embolism, cardiac, or pulmonary complications, as fci complications such as anastomotic ulcer, insufficient weight loss and vitamin deficiencies. I emphasized the importance of close follow-up, adherence to instructions and good communication. So far she has proven to be an excellent communicator and very compliant with all our directions accomplishing a great weight loss. I believe that she is an excellent candidate and she is ready. 2. The patient participated in a structured preoperative lifestyle intervention program supervised by a physician the 12 months preceding the surgical procedure. The lifestyle intervention included a structured nutritional plan with a specific daily protein intake goal, an exercise plan with a 2000 calorie burn weekly goal, weekly behavior modification guidance and completion of eight 1-hour online nutritional classes and passing successfully the corresponding quizzes. Adherence to preoperative care plan was demonstrated by completing an extensive preoperative work-up. Program participation was demonstrated by completing 9 visits with our medical team and by sharing weekly weight measurements weekly for 12 consecutive months via an approved body composition scale. Compliance to the lifestyle intervention was demonstrated by achieving a 34.8lbs weight-loss or 12.46% total body weight loss (TBWL). No medications were used to achieve this weight loss. In our published experience an over 7% preoperative TBWL, achieved by meeting the diet and exercise goals of our program improves surgical outcomes, reduces the potential for surgical complications, and predicts a statistically significant higher weight loss up to 6 years postoperatively. 3. Continue same meal plan of 2 Celebrate Rebuild protein shakes (2 scoops each in almond milk) and one meal (8 forks of protein and 8 forks of salad or vegetables) 4. Exercise: continue outside walking x5/wk for 800 calories 5. Start treadmill with an incline of 4.0 and speed of 3.5. Increase incline by 1 every 3 min to a max incline of 10.0, stay 3min at 10.0 and then return to 4.0 and repeat same steps until calorie goal is met. Goal is to burn 2000 calories per week on exercise, which means either 300 calories daily, or 400 calories 5 days per week, or 500 calories 4 days per week, or 650 calories 3 days per week. 6. Send me weight measurements weekly on Fridays
[2024-04-14 14:22] VITALS: BMI 36.1
== END 2024-04-14 14:27 | disposition home or self-care (01) ==
LOC: HO.HBS 07:59
PROVIDERS: PCP Nurse Practitioner Family; Visit Provider Surgery
DX: E66.812 Obesity, class 2 (principal); E66.01 Morbid (severe) obesity due to excess calories; Z68.36 Body mass index [BMI] 36.0-36.9, adult
CPT/HCPCS: 99214; G2211

== ENCOUNTER → 2024-04-14 07:59 | Outpatient (BNVA) | payer OTHER, SELFPAY | PROVIDERS: PCP Nurse Practitioner Family; Visit Provider Surgery ==

== ENCOUNTER 2024-05-15 07:40 | Outpatient (AMB) | payer OTHER, SELFPAY ==
--- NOTE | 2024-05-15 08:04 | MHC.OFFVISWM ---
VS Expanded 05/15/24 08:23 Height 5 ft 9 in Weight 242 lb 8 oz BMI 35.8 Body Fat % 45.8 Body Fat Mass 111.2 Fat Free Mass 131.4 Visceral Fat Rating 17 Body Water % 37.1 Body Water Mass 90 Basal Metabolic Rate/Score 1,824 Intake Visit Reasons: TV Pre Op LSG 05/24/24 Allergies No Known Allergies [No Known Allergies*] Allergy (Verified 05/15/24 08:05) Medication List - Last Reconciled 05/15/24 by Davi Salinas MD apixaban (Eliquis) 5 mg PO BID bisacodyl (Dulcolax (bisacodyl)) 10 mg NM DAILY PRN bupropion HCl SR (Wellbutrin SR) 150 mg PO BID cholecalciferol (vitamin D3) 125 mcg PO DAILY 90 days escitalopram oxalate 20 mg PO DAILY fondaparinux 2.5 mg (0.5 mL) subcut Q24H iron,carbonyl-vitamin C 65 mg iron- 125 mg (Vitron-C) 1 tab PO DAILY 90 days levetiracetam (Keppra) 1,000 mg PO BID ondansetron 4 mg PO Q12H pantoprazole 40 mg PO DAILY polyethylene glycol 3350 17 grams PO DAILY sennosides (senna) 17.2 mg (2 x 8.6 mg) PO BEDTIME PRN sucralfate 10 mL PO BID vitamin A palmitate 3,000 mcg PO DAILY 60 days HPI HPI TV Pre Op LSG 05/24/24: Details: Start time: 7.50am, End time: 8.32am ?I spent 37 minutes speaking with the patient on the phone plus an additional 5 minutes reviewing and updating records for a total of 42 minutes HPI Comments Details: Overall weight loss: 36.6 lbs, or 13.1% TBWL Is doing 5 Celebrate Rebuild protein shakes per day in preparation for the bariatric surgery [facility] Medical History (Updated 04/14/24 @ 14:23 by Davi Salinas MD) Anxiety Obesity Hypothyroidism Depression GERD (gastroesophageal reflux disease) Pulmonary embolism Epilepsy Morbid obesity Surgical History History of laparoscopic cholecystectomy History of laparoscopic appendectomy Family History Father Coronary artery disease Hypertension Diabetes mellitus Mother Breast cancer Hypertension Daughter No problems noted. Son Asthma Food allergy Son Asthma Food allergy Son Food allergy Asthma Daughter No problems noted. Social History Alcohol intake: current Alcohol intake frequency: holidays/special occasions only Patient Tobacco Use Status: Never used Tobacco Telehealth Telehealth Telehealth Platform: Telephone Location of provider rendering services: practice address Location of patient: address on file Patient Identification confirmed using: Name, : Yes Telehealth method: voice only Patient verbally consented to treatment: Yes Patient verbally consented to billing insurance company: Yes Patient informed of any privacy concerns related to visit: Yes Minutes spent on Phone/Video with Pt.: 42 Assessment & Plan Assessment & Plan (1) Obesity: Code(s): E66.9 - Obesity, unspecified Category: Medical Qualifiers: Obesity type: due to excess calories Obesity classification: adult class 2 (BMI 35 - 39.9) Serious obesity comorbidity presence: with serious comorbidity Body mass index: BMI 36.0-36.9 Qualified Code(s): E66.812 - Obesity, class 2; E66.01 - Morbid (severe) obesity due to excess calories; Z68.36 - Body mass index [BMI] 36.0-36.9, adult Plan: 1. Plan for lap sleeve gastrectomy including upper GI endoscopy. All tests has been completed and reviewed and the patient is cleared for the surgery. ?If diaphragmatic or ventral hernias are present at time of surgery, these will be repaired laparoscopically as well. 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 I emphasized the importance of close follow-up, adherence to instructions and good communication. So far she has proven to be an excellent communicator and very compliant with all our directions accomplishing a great weight loss. I believe that she is an excellent candidate and she is ready. 2. Preop prescriptions were provided and explained the purpose of each one. Need to be purchased preop. Start Pantoprazole now as you get it from the pharmacy, 1 pill per day. Sucralfate and Zofran are for after surgery as needed. 3. Bowel prep: please do 7 packets ?of Miralax mixing each one with a an 8oz glass of water, crystal light, gatorade zero, or propel ?on 05/22/24 and the same amount on 05/23/24. The Miralax you begin with one packet at a time in 8oz water or crystal light, gatorade zero, or propel ?as early in the day as you can and you do them back to back until you finish them. Continue the protein shakes during ?the bowel prep. 4. Needs to purchase 1oz medicine cups . 5. Needs to purchase Children's liquid Tylenol for postop pain control. 6. She needs to stop all the ELIQUIS on 05/18/24 (last day to take it). Avoid aspirin, motrin, Advil, Aleve, Ibuprofen, Naproxyn. Tylenol is OK. 7. She needs to purchase the Celebrate 4:1 protein shakes or the Celebrate multivitamins from the hospital's gift shop. 8. Will do basic preop blood work-up any day between Wednesday06/01/22 and Wednesday06/05/22 fasting for 12 hours and is scheduled to see the Anesthesiologist prior to the day of surgery. 9. Importance of adherence to postop folllow-up and recommendations was underscored and she understands that. 10. Stop food and bars as of TODAY 05/15/24 and continue with one Celebrate REBUILD protein shake with ONE scoop in 8oz almond milk at 6am-8am and 4 Celebrate REBUILD protein shakes (TWO scoops EACH in 8oz almond milk) at 9am-11am, 12pm-2pm, 3pm-5pm, 6pm-8pm. 11. No soups, broths or V8 12. The patient's?medical?history has been reviewed and they are considered low risk for post op DVT and therefore DVT prophylaxis is not considered necessary. Travel after surgery was reviewed. The patient has not disclosed any travel plans during the first 30 days after surgery and they have been advised that within the first 30 days after surgery any bus, plane, train or car travel over 2 hours in duration is contraindicated due to the possibility of developing blood clots from immobility. Any travel, needs to include periods of ambulation of 10 minutes in duration every 2 hours.? Patient was instructed to discuss any plans for travel during this period with their bariatric surgeon.? 13. Start the Fondaparinux (ARIXTRA) injections on 05/18/24 and take one per day until 05/22/24 (last day to use the injections) 14. Please take at the day of surgery the following medications: Only the KEPRA 15. Stop any control pills and don't use them for one month after surgery 16. Absolutely no smoking or vaping, or marijuana until the surgery and for at least the first 4 weeks. Only nicotine patches are allowed. 17. Send me weight measurements on Wednesday05/21/24 and then on Wednesday05/24/24, the day of surgery before you go to the hospital. 18. Avoid any steroids by mouth for any reason. Let me know if someone prescribes them to you 19. These instructions supersede anything else you read in the handbook, anything you watched in videos or classes or you were told by any other provider. If there is any conflict, you follow the above instructions and nothing else. Orders: Orders TSH reflex Free T4 Today E03.9 - Hypothyroidism, unspecified, E66.01 - Morbid (severe) obesity due to excess calories, E66.812 - Obesity, class 2, I26.99 - Other pulmonary embolism without acute cor pulmonale, K21.9 - Gastro-esophageal reflux disease without esophagitis, Z68.36 - Body mass index [BMI] 36.0-36.9, adult Prothrombin Time INR Today E03.9 - Hypothyroidism, unspecified, E66.01 - Morbid (severe) obesity due to excess calories, E66.812 - Obesity, class 2, I26.99 - Other pulmonary embolism without acute cor pulmonale, K21.9 - Gastro-esophageal reflux disease without esophagitis, Z68.36 - Body mass index [BMI] 36.0-36.9, adult Lipid Panel Today E03.9 - Hypothyroidism, unspecified, E66.01 - Morbid (severe) obesity due to excess calories, E66.812 - Obesity, class 2, I26.99 - Other pulmonary embolism without acute cor pulmonale, K21.9 - Gastro-esophageal reflux disease without esophagitis, Z68.36 - Body mass index [BMI] 36.0-36.9, adult Type and Screen Today E03.9 - Hypothyroidism, unspecified, E66.01 - Morbid (severe) obesity due to excess calories, E66.812 - Obesity, class 2, I26.99 - Other pulmonary embolism without acute cor pulmonale, K21.9 - Gastro-esophageal reflux disease without esophagitis, Z68.36 - Body mass index [BMI] 36.0-36.9, adult Partial Thromboplastin Time Today E03.9 - Hypothyroidism, unspecified, E66.01 - Morbid (severe) obesity due to excess calories, E66.812 - Obesity, class 2, I26.99 - Other pulmonary embolism without acute cor pulmonale, K21.9 - Gastro-esophageal reflux disease without esophagitis, Z68.36 - Body mass index [BMI] 36.0-36.9, adult Insulin Today E03.9 - Hypothyroidism, unspecified, E66.01 - Morbid (severe) obesity due to excess calories, E66.812 - Obesity, class 2, I26.99 - Other pulmonary embolism without acute cor pulmonale, K21.9 - Gastro-esophageal reflux disease without esophagitis, Z68.36 - Body mass index [BMI] 36.0-36.9, adult Comprehensive Met. Panel Today E03.9 - Hypothyroidism, unspecified, E66.01 - Morbid (severe) obesity due to excess calories, E66.812 - Obesity, class 2, I26.99 - Other pulmonary embolism without acute cor pulmonale, K21.9 - Gastro-esophageal reflux disease without esophagitis, Z68.36 - Body mass index [BMI] 36.0-36.9, adult Hemoglobin A1c Today E03.9 - Hypothyroidism, unspecified, E66.01 - Morbid (severe) obesity due to excess calories, E66.812 - Obesity, class 2, I26.99 - Other pulmonary embolism without acute cor pulmonale, K21.9 - Gastro-esophageal reflux disease without esophagitis, Z68.36 - Body mass index [BMI] 36.0-36.9, adult C Reactive Protein Today E03.9 - Hypothyroidism, unspecified, E66.01 - Morbid (severe) obesity due to excess calories, E66.812 - Obesity, class 2, I26.99 - Other pulmonary embolism without acute cor pulmonale, K21.9 - Gastro-esophageal reflux disease without esophagitis, Z68.36 - Body mass index [BMI] 36.0-36.9, adult Complete Blood Count Auto Diff Today E03.9 - Hypothyroidism, unspecified, E66.01 - Morbid (severe) obesity due to excess calories, E66.812 - Obesity, class 2, I26.99 - Other pulmonary embolism without acute cor pulmonale, K21.9 - Gastro-esophageal reflux disease without esophagitis, Z68.36 - Body mass index [BMI] 36.0-36.9, adult Medications: New sucralfate 10 mL PO BID 600 mL 2RF K21.9 - Gastro-esophageal reflux disease without esophagitis ondansetron Only take one every 12 hours as needed if you have nausea 4 mg PO Q12H 20 tabs 0RF nausea and vomiting R11.0 - Nausea fondaparinux Start Fondaparinux on 05/18/24 and take one per day with last dose on 05/22/24 2.5 mg (0.5 mL) subcut Q24H 5 mL 1RF I26.99 - Other pulmonary embolism without acute cor pulmonale pantoprazole 40 mg PO DAILY 90 tabs 0RF K21.9 - Gastro-esophageal reflux disease without esophagitis polyethylene glycol 3350 Mix each measuring cup with 8oz of water, Crystal light, or Gatorade zero, or Propel and do 7 measuring cups on 05/22/24 and another 7 measuring cups on 05/23/24 17 grams PO DAILY 238 grams 0RF Z01.818 - Encounter for other preprocedural examination
[2024-05-15 08:23] VITALS: BMI 35.8
--- OUTSIDE RECORDS SUMMARY | 2024-05-19 12:49 | XMS_ITS | Continuity of Care Document ---
Author Organization [facility] Address [address] [place] [address]- Care Team Providers Care Devil Dog Name Role Phone Lori Cervantes NP Primary Care Physician Encounter [facility] [place] Date(s): 03/24/24 - 04/23/24 [facility] [address] [place] [address]- Allergies, Adverse Reactions, Alerts Substance Reaction Severity Status papaya Active Bee Stings Active Immunizations Given and Recorded Vaccine Date Status Refusal Reason SARS-CoV-2(COVID-19)mRNA-LNP vac([id number]) 04/27/23 Recorded influenza virus vaccine, inactivated 04/16/23 [...] tablet, 5 Refills, Maintenance, 09/21/23 14:53:00 EDT, [facility], 175, cm, 07/30/23 16:40:00 EST, Height, 126, kg, 09/03/22 22:49:00 EST, DryWeight Start Date: 09/21/23 Status: Ordered furosemide 20 mg oral tablet 1, tablet, By Mouth, Daily, # 90 tablet, Refills 0, Maintenance, 08/27/23 7:12:00 EST, Route to Pharmacy Electronically, [facility], 175, cm, 07/30/23 16:40:00 EST, Height, 126, kg, 09/03/22 22:49:00 EST, Dry Weight Start Date: 08/27/23 Stop Date: 11/25/23 Status: Ordered levETIRAcetam 1000 mg oral tablet 1 tablet = 1,000 mg, By Mouth, 2 times a day, # 60 tablet, 11 Refills, Maintenance, 12/03/23 15:17:00 EDT, Tablet, [facility], Partial fill upon patient request, 175, cm, 12/03/23 15:03:00EDT, Height, 120.8, kg, 11/09/23 11:07:00 EDT, Dry... Start Date: 12/03/23 Stop Date: 11/27/24 Status: Ordered Lexapro 20 mg oral tablet 1 tablet = 20 mg, By Mouth, Daily, # 90 tablet, 3 Refills, Maintenance, 08/03/23 12:52:00 EST, [facility], Partial fill upon patient request if the prescription is for a schedule II opioiddrug., 175, cm, 07/30/23 16:40:00 EST, Height, 126,... Start Date: 08/03/23 Stop Date: 07/28/24 Status: Ordered MiraLax oral powder for reconstitution = 17 Gm, By Mouth, Daily, dissolve in water before taking, # 527 Gm, 0 Refills, Maintenance, 09/03/22 23:10:00 EST, REC Powder, [facility], Partial fill upon patient [...] 16:28:00 EDT, Route to Pharmacy Electronically, [facility], 175, cm, 12/03/23 15:03:00 EDT, Height, 120.8, kg, 11/09/23 11:07:... Start Date: 12/29/23 Status: Ordered Ventolin HFA 108 mcg/inh inhalation aerosol with adapter 2 puffs, Inhalation, Every 4 hours, PRN NEEDED FOR WHEEZING, # 18 Gm, 0 Refills, Maintenance, 07/27/23 16:41:00 EST, [facility], 175, cm, 06/29/23 15:47:00 [...] Team Personnel Name: Cecilio Cornejo RN Position: [facility] RN Member Role: Primary Care Nurse Name: Lori Cervantes NP Position: [facility] PCO Associate Professional Member Role: PCP Address: Address: [address] [place] [id number] Name: Scotty Sosa RN Position: [facility] RN Member Role: Primary Care Nurse Name: Ly RN, Nelson Position: [facility] ED RN W/OE and Tasks Member Role: Primary Care Nurse Name: Fiona Gillis RN Position: [facility] Office Staff Member Role: Primary Care Nurse Name: Eve Roy RN Position: [facility] RN Member Role: Primary Care Nurse Care Team Related Persons Name: BRAD DOMINGO Address: home [address] [place] [address] Name: CHACORTA DOMINGO Address: home [address] [place] [address] Name: DAMION MENARD Address: [place] [address]
--- OUTSIDE RECORDS SUMMARY | 2024-05-19 12:50 | XMS_ITS | Continuity of Care Document ---
Author Organization [facility] Address [address] [place] [address]- Care Team Providers Care Electromechanical Equipment Tester Name Role Phone Helen STRATTON, Lori Primary Care Physician [phone] Encounter [facility] [id number] Date(s): 04/19/24 - 04/26/24 [facility] [address] [place] [address]- Attending Physician: Rosario Barragan NP Referring Physician: Lori Cervantes NP Allergies, Adverse Reactions, Alerts Substance Reaction Severity Status papaya Active Bee Stings Active Immunizations Given and Recorded Vaccine Date Status Refusal Reason SARS-CoV-2(COVID-19)mRNA-LNP vac([id number]) 04/27/23 Recorded influenza virus vaccine, inactivated 04/16/23 [...] tablet, 5 Refills, Maintenance, 09/21/23 14:53:00 EDT, [facility], 175, cm, 07/30/23 16:40:00 EST, Height, 126, kg, 09/03/22 22:49:00 EST, DryWeight Start Date: 09/21/23 Status: Ordered furosemide 20 mg oral tablet 1, tablet, By Mouth, Daily, # 90 tablet, Refills 0, Maintenance, 08/27/23 7:12:00 EST, Route to Pharmacy Electronically, [facility] 1967, 175, cm, 07/30/23 16:40:00 EST, Height, 126, kg, 09/03/22 22:49:00 EST, Dry Weight Start Date: 08/27/23 Stop Date: 11/25/23 Status: Ordered levETIRAcetam 1000 mg oral tablet 1 tablet = 1,000 mg, By Mouth, 2 times a day, # 60 tablet, 11 Refills, Maintenance, 12/03/23 15:17:00 EDT, Tablet, [facility], Partial fill upon patient request, 175, cm, 12/03/23 15:03:00EDT, Height, 120.8, kg, 11/09/23 11:07:00 EDT, Dry... Start Date: 12/03/23 Stop Date: 11/27/24 Status: Ordered Lexapro 20 mg oral tablet 1 tablet = 20 mg, By Mouth, Daily, # 90 tablet, 3 Refills, Maintenance, 08/03/23 12:52:00 EST, [facility], Partial fill upon patient request if the prescription is for a schedule II opioiddrug., 175, cm, 07/30/23 16:40:00 EST, Height, 126,... Start Date: 08/03/23 Stop Date: 07/28/24 Status: Ordered MiraLax oral powder for reconstitution = 17 Gm, By Mouth, Daily, dissolve in water before taking, # 527 Gm, 0 Refills, Maintenance, 09/03/22 23:10:00 EST, REC Powder, [facility], Partial fill upon patient [...] 12/29/23 16:28:00 EDT, Route to Pharmacy Electronically, [facility], 175, cm, 12/03/23 15:03:00 EDT, Height, 120.8, kg, 11/09/23 11:07:... Start Date: 12/29/23 Status: Ordered Ventolin HFA 108 mcg/inh inhalation aerosol with adapter 2 puffs, Inhalation, Every 4 hours, PRN NEEDED FOR WHEEZING, # 18 Gm, 0 Refills, Maintenance, 07/27/23 16:41:00 EST, [facility], 175, cm, 06/29/23 15:47:00 [...] oldest [Reference Range]: 1 Height 175 cm (04/19/24 8:13 AM) Weight 116.0 kg (04/19/24 8:13 AM) Pulse Rate [55-90 bpm] 95 bpm *H* (04/19/24 8:13 AM) Body Mass Index [18.5-24.99 kg/m2] 37.88 kg/m2 *>HHI* (04/19/24 8:13 AM) Blood Pressure [90-138/55-84 mm Hg] 128/ 85mm Hg (04/19/24 8:13 AM) Blood pressure sites Arm, right (04/19/24 8:13 AM) Weight Obtained Via Bed scale (04/19/24 8:13 AM) Social History Social History Type Response Smoking Status Never smoker entered on: 12/05/15 Sex Female EKG study * Event Display: ECG 12-Lead Authored Date: Please click on pdf link to open report * Event Display: ECG 12-Lead Authored Date: Ventricular Rate: 93 BPM Atrial Rate: 93 BPM P-R Interval: 138 ms QRS Duration: 82 ms Q-T Interval: 362 ms QTC Calculation(Bazett): 450 ms P Westford: 47 degrees R Westford: 12 degrees T Westford: 29 degrees Normal sinus rhythm Normal ECG When compared with ECG of 03-SEP-2022 20:29, No significant change was found Confirmed by YENNI RIBERA MD ([id number]) on 04/19/2024 11:12:51 AM Prentiss: YENNI RIBERA MD Cardiology Outpatient Note * Yung STRATTON, Rosario: MODIFY, PERFORM Event Display: Cardiology Note Office Authored Date: Patient: ??NAREN DOWLING ? Age:??43 Years?Sex:??Female?:??1980?? 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 Poli Mendieta,??date TBD. Sheendorses no cardiac history or complaints. She is doing well with no concerns. She denies CP, SOB, dizziness, palpitations.?No orthopnea, PND. ??No syncope.?? She does not smoke, do any drugs,??only occasional??alcohol use on special occasions.?? She has 1??large cup of coffee a day.?? She walksfor 3 hours around the track 5 days a week and feels good with this.?? She is also active with her??6 children.? Review of Systems pertinent positives per HPI Physical Exam Vitals & Measurements HR:??95??(Peripheral)?? BP:??128/85?? HT:??175??cm?? WT:??116.0??kg?? BMI:??37.88?? Weight lb/oz: 255 lb 12 oz General: Alert, sitting in chair comfortably, in NAD.??Ambulated independently,??steady??gait. Mental: Oriented x3. Appropriate affect. Converses easily HEENT: Normocephalic. Pupils round, equal. Mucous membranes moist. Neck: Full ROM Respiratory:??CTA. Nonlabored. Cardiovascular:??RRR. S1/S2. No M/R/G. No edema. No JVD. Gastrointestinal: Abdomen soft, non-tender, non-distended. Active bowel sounds. Neuro: Grossly intact. Moves all extremities spontaneously. Skin: Garceno, warm. CDI. 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 Poli Mendieta. She is doing well with no cardiac concerns. She has a good functional capacity and can perform >4 METS. Pt had a previous echo in 2020 that was remarkable only for grade I diastolic dysfunction, otherwise normal. Her ECG in office today reveals NSR. She??is a??low??risk for this??low-intermediaterisk surgery. RCRI score??gives??her??a??<1%??estimated rate for myocardial infarction, ventricular fibrillation, pulmonary edema, complete heart block, or cardiac arrest.??She??does not require??additional cardiac testing prior to surgery.?? Allergies Bee Stings papaya Home Medications Adderall XR 10 mg oral capsule, extended release, 10 mg= 1 capsule, By Mouth, Daily Compression Stockings, See Instructions, 2 refills Eliquis 2.5 mg oral tablet, 1 tablet, By Mouth, 2 times a day furosemide 20 mg oral tablet, 1 tablet, By Mouth, Daily levETIRAcetam 1000 mg oral tablet, 1000 mg= 1 tablet, By Mouth, 2 times a day, 11 refills Lexapro 20 mg oral tablet, 20 mg= 1 tablet, By Mouth, Daily, 3 refills MiraLax oral powder for reconstitution, 17 Gm, By Mouth, Daily Nexplanon 68 mg subcutaneous implant, 68 mg= 1 each, Subcutaneous Infusion, Once traZODone 50 mg oral tablet, 1 tablet, By Mouth, Daily at bedtime, PRN Ventolin HFA 108 mcg/inh inhalation aerosol with adapter, 2 puffs, Inhalation, Every 4 hours, PRN Lab Results Cardiology Labs WBC: 5.9 k/mm3 (08/03/23) RBC: 4.38 m/mm3 (08/03/23) Hgb:??11.6 Gm/dL??Low (08/03/23) Hct: 37 % (08/03/23) MCV: 84.5 femtoliters (08/03/23) MCH:??26.5 pg??Low (08/03/23) MCHC:??31.4 g/dL??Low (08/03/23) Platelet Count: 286 k/mm3 (08/03/23) RDW-SD:??47.8 femtoliters??High (08/03/23) Nucleated RBC (Automated): 0 #/100 WBC'S (08/03/23) Sodium: 141 mmol/L (08/03/23) Potassium: 4.4 mmol/L (08/03/23) Chloride:??109 mmol/L??High (08/03/23) Bicarbonate Level: 24 mmol/L (08/03/23) Glucose Level: 93 mg/dL (08/03/23) BUN: 8 mg/dL (08/03/23) Creatinine-Blood: 0.7 mg/dL (08/03/23) Calcium: 9 mg/dL (08/03/23) Protein, Total: 7.3 Gm/dL (08/03/23) Albumin: 4 Gm/dL (08/03/23) Alkaline Phosphatase: 75 units/L (08/03/23) AST (SGOT): 10 units/L (08/03/23) ALT (SGPT): 9 units/L (08/03/23) Bilirubin, Total: 0.4 mg/dL (08/03/23) TSH: 1.93 uIU/mL (12/14/23) Diagnostic Impression ECG ECG 12-Lead * Preliminary * ?? 08:17:34 Please click on pdf link to open report ?? ECG 12-Lead * Preliminary * ?? 08:17:34 Ventricular Rate: 93 BPM Atrial Rate: 93 BPM P-R Interval: 138 ms QRS Duration: 82 ms Q-T Interval: 362 ms QTC Calculation(Bazett): 450 ms P Westford: 47 degrees R Westford: 12 degrees T Westford: 29 degrees Normal sinus rhythm Normal ECG When compared with ECG of 03-SEP-2022 20:29, No significant change was found ?? Prentiss: , Echo Echocardiogram - Complete ?? 08:23:23 Summary The left ventricle is normal in size, wall thickness and systolic function. The ejection fraction is 55-65%. No regional wall motion abnormalities are seen. Grade I, mild diastolic dysfunction with impaired LV relaxation. The right ventricular size and function appears grossly normal. ?? Comparison Comparison is made to the study of January 08, 2017. There is no significant change. ?? Signature ?? Signed By: Hector Johnson MD Problem List/Past Medical History Ongoing ADHD Anxiety and depression Bilateral hearing loss Bipolar 1 disorder, manic, mild Epilepsy History of blood clots Hypothyroidism (acquired) Menorrhagia Severe obesity (BMI 35.0-39.9) with comorbidity Thalassemia syndrome Urge incontinence Procedure/Surgical History Cholecystectomy Appendectomy Social History Alcohol Use: Past. Frequency: 1-2 times per year. Electronic Cigarette/Vaping Electronic Cigarette Use: Never. Employment/School Status: Employed. Other: [place]. Exercise Self assessment: Poor condition. Regular exercise: No. Home/Environment Living situation: Home/Independent. Lives with: Children, 2 grandchildren at home. Feels unsafe at home: No. Nutrition/Health Diet: Regular. Sexual Sexually involved in last 6 months: No. Sexually active at age: 17 Years. Number of partners in last 6 months: 1. Number of lifetime partners: 12. Gender of partner(s): Male. Substance Abuse Use: Never. Tobacco Never smoker Family History Mother: Cancer of breast; Drug addiction; Hyperlipidemia; Hypertension Father: Cardiovascular disease; Diabetes mellitus; Heart attack; Hyperlipidemia; Hypertension; Pulmonary embolism Pat. Grandmother: Cardiovascular disease; Diabetes mellitus; Hyperlipidemia; Hypertension Other: Pulmonary embolism Aunt: Cancer of colon; Hypertension Uncle: Cancer of colon; Hypertension Pat. Grandfather: Heart attack Note * Jack Howard: PERFORM Event Display: Patient Education/Instruction Authored Date: [id number] Ambulatory Adult Visit Summary [facility] [address] [place] [address] Name: NAREN DOWLING : 1980?? Visit: 04/19/2024 08:10?? Ambulatory Visit Instructions ?? Your Care Team Primary Care Provider Lori Cervantes NP? This Visit Provider Rosario Barragan NP Your Diagnosis Preop testing Vitals Signs Pulse Rate:??95 bpm??High Height: 175 cm Systolic Blood Pressure: 128 mm Hg Weight: 116 kg Diastolic Blood Pressure:??85 mm Hg??High Body Mass Index:??37.88 kg/m2??Critical ?? Body surface area: 2.37 What to do next Scheduled Follow-Up Appointments Wednesday 11:40 AM EDT ?? With: Pino CROWELL, Nyasia Richter Where: [facility] [place] [facility] [address] [place] [address]- Status: Pending Wednesday 11:00 AM EDT ?? Where: [facility] Radiology [facility] [address] [place] [address], [address] [address]- Status: Pending Wednesday 11:30 AM EDT ?? Where: [facility] Radiology [facility] [address], [address] [address]- Status: Pending Future Orders Buprenorphine Urine - Routine, Once, 11/08/23 10:23:00 [...] provider. What How Much When Why Instructions Unchanged Albuterol (Ventolin HFA 108 mcg/ inh inhalation aerosol with adapter) 2 puff(s) Inhalation Every 4 hours as needed for NEEDED FOR WHEEZING Unchanged Amphetamine-Dextroamphetamine (Adderall XR 10 mg oral capsule, extended release) 1 capsule Oral Daily Duration: 28 Days Unchanged apixaban (Eliquis 2.5 mg oral tablet) [...] Bedtime as needed for NEEDED FOR INSOMNIA Medications and Immunizations Administered Medications Given During [...] are strongly encouraged to quit. Please call [facility] at [phone] or [phone] ([phone]) or log in to [email or web address] for referrals to smoking cessation programs. ?? The National Suicide Prevention Hotline is available 18/01 if you or someone you know needs to find a reason to keep living. By calling 0-329-136-[facility] (8866) you'll be connected to a skilled, trained counselor at a crisis center in your area. [facility] You can view and manage your care through the patient portal or by using a health care funmilayo of your choosing. [employer] is a website that allows you to securely view your medical information including your hospital discharge summary, office visit summaries, medications and follow-up visits. You can also request appointments, renew medications, and request access to your medical information using a health care funmilayo of your choosing, or just ask a question. You can enroll at [email or web address] or register during your next office visit. [facility], in keeping with [facility] guidance, no longer requires face [...] primary care provider, you may find a [facility] provider by calling [facility] at [phone]. Patient Care team information Care Team Personnel Name: Cecilio Cornejo RN Position: [facility] RN Member Role: Primary Care Nurse Name: Lori Cervantes NP Position: [facility] PCO Associate Professional Member Role: PCP Address: Address: [address] [place] [address]- Name: Scotty Sosa RN Position: [facility] RN Member Role: Primary Care Nurse Name: Nelson Moscoso RN Position: [facility] ED RN W/OE and Tasks Member Role: Primary Care Nurse Name: Fiona Gillis RN Position: [facility] Office Staff Member Role: Primary Care Nurse Name: Eve Roy RN Position: [facility] RN Member Role: Primary Care Nurse Care Team Related Persons Name: JOSE LBRAD Address: home [address] [place] [address] Name: CHACORTA DOMINGO Address: home [address] [place] [address] Name: DAMION MENARD Address: [place] [address]
--- OUTSIDE RECORDS SUMMARY | 2024-05-19 12:50 | XMS_ITS | Continuity of Care Document ---
Author Organization [facility] Address [address] [place] [address]- Care Team Providers Care Big Machine Consultant Name Role Phone Lori Cervantes NP Primary Care Physician [phone] Encounter [facility] Date(s): 04/06/24 - 05/06/24 [facility] [address] [place] [address]- Allergies, Adverse Reactions, Alerts Substance Reaction Severity Status papaya Active Bee Stings Active Immunizations Given and Recorded Vaccine Date Status Refusal Reason SARS-CoV-2(COVID-19)mRNA-LNP vac([id number]) 04/27/23 Recorded influenza virus vaccine, inactivated 04/16/23 [...] Daily, # 28 capsule, 0 Refills, Maintenance, 04/28/24 9:02:00 EDT, ER Capsule, [facility], Partial fill upon patient request if the prescription is for a schedule II opioid drug., 1 capsule By Mouth Daily,x28 da... Start Date: 04/28/24 Stop Date: 05/26/24 Status: Ordered Compression Stockings See Instructions, # 2 each, Refills 2, Tot. Refills 2, Maintenance, surgical, knee length 20-30 mm Hg, 06/23/21 8:35:00 EST, Supply Start Date: 06/23/21 Status: Ordered Eliquis 2.5 mg oral tablet 1 tablet, By Mouth, 2 times a day, # 60 tablet, 5 Refills, Maintenance, 09/21/23 14:53:00 EDT, [facility], 175, cm, 07/30/23 16:40:00 EST, Height, 126, kg, 09/03/22 22:49:00 EST, DryWeight Start Date: 09/21/23 Status: Ordered furosemide 20 mg oral tablet 1, tablet, By Mouth, Daily, # 90 tablet, Refills 0, Maintenance, 08/27/23 7:12:00 EST, Route to Pharmacy Electronically, [facility] 1967, 175, cm, 07/30/23 16:40:00 EST, Height, 126, kg, 09/03/22 22:49:00 EST, Dry Weight Start Date: 08/27/23 Stop Date: 11/25/23 Status: Ordered levETIRAcetam 1000 mg oral tablet 1 tablet = 1,000 mg, By Mouth, 2 times a day, # 60 tablet, 11 Refills, Maintenance, 12/03/23 15:17:00 EDT, Tablet, [facility] 1967, Partial fill upon patient request, 175, cm, 12/03/23 15:03:00EDT, Height, 120.8, kg, 11/09/23 11:07:00 EDT, Dry... Start Date: 12/03/23 Stop Date: 11/27/24 Status: Ordered Lexapro 20 mg oral tablet 1 tablet = 20 mg, By Mouth, Daily, # 90 tablet, 3 Refills, Maintenance, 08/03/23 12:52:00 EST, [facility], Partial fill upon patient request if the prescription is for a schedule II opioiddrug., 175, cm, 07/30/23 16:40:00 EST, Height, 126,... Start Date: 08/03/23 Stop Date: 07/28/24 Status: Ordered MiraLax oral powder for reconstitution = 17 Gm, By Mouth, Daily, dissolve in water before taking, # 527 Gm, 0 Refills, Maintenance, 09/03/22 23:10:00 EST, REC Powder, [facility], Partial fill upon patient [...] 12/29/23 16:28:00 EDT, Route to Pharmacy Electronically, [facility], 175, cm, 12/03/23 15:03:00 EDT, Height, 120.8, kg, 11/09/23 11:07:... Start Date: 12/29/23 Status: Ordered Ventolin HFA 108 mcg/inh inhalation aerosol with adapter 2 puffs, Inhalation, Every 4 hours, PRN NEEDED FOR WHEEZING, # 18 Gm, 0 Refills, Maintenance, 07/27/23 16:41:00 EST, [facility], 175, cm, 06/29/23 15:47:00 [...] Associate Professional Member Role: PCP Address: Address: [address] [place] [id number] Name: Ian CORTÉS, Scotty Shultz Position: [facility] RN Member Role: Primary Care Nurse Name: Blanka CORTÉS, Nelson Position: [facility] ED RN W/OE and Tasks Member Role: Primary Care Nurse Name: Fiona Gillis RN Position: [facility] Office Staff Member Role: Primary Care Nurse Name: Eve Roy RN Position: [facility] RN Member Role: Primary Care Nurse Care Team Related Persons Name: BRAD DOMINGO Address: home [address] [place] [address] Name: CHACORTA DOMINGO Address: home [address] [place] [address] Name: DAMION MENARD Address: [place] [address]
--- OUTSIDE RECORDS SUMMARY | 2024-05-19 12:53 | XMS_ITS | Continuity of Care Document ---
Author Organization [facility] Adult Address [address] [place] [address]- Care Team Providers Care Element Setter Name Role Phone Lori Cervantes NP Primary Care Physician [place] [facility] [place]24 [facility] [address] [place] [id number]- Allergies, Adverse Reactions, Alerts Substance Reaction Severity Status papaya Active Bee Stings Active Immunizations Given and Recorded Vaccine Date Status Refusal Reason SARS-CoV-2(COVID-19)mRNA-LNP vac([id number]) 04/27/23 Recorded influenza virus vaccine, inactivated 04/16/23 [...] Refills, Maintenance, 04/28/24 9:02:00 EDT, ER Capsule, [facility], Partial fill upon patient [...] tablet, 5 Refills, Maintenance, 09/21/23 14:53:00 EDT, [facility], 175, cm, 07/30/23 16:40:00 EST, Height, 126, kg, 09/03/22 22:49:00 EST, DryWeight Start Date: 09/21/23 Status: Ordered furosemide 20 mg oral tablet 1, tablet, By Mouth, Daily, # 90 tablet, Refills 0, Maintenance, 08/27/23 7:12:00 EST, Route to Pharmacy Electronically, [facility] 1967, 175, cm, 07/30/23 16:40:00 EST, Height, 126, kg, 09/03/22 22:49:00 EST, Dry Weight Start Date: 08/27/23 Stop Date: 11/25/23 Status: Ordered levETIRAcetam 1000 mg oral tablet 1 tablet = 1,000 mg, By Mouth, 2 times a day, # 60 tablet, 11 Refills, Maintenance, 12/03/23 15:17:00 EDT, Tablet, [facility] 1967, Partial fill upon patient request, 175, cm, 12/03/23 15:03:00EDT, Height, 120.8, kg, 11/09/23 11:07:00 EDT, Dry... Start Date: 12/03/23 Stop Date: 11/27/24 Status: Ordered Lexapro 20 mg oral tablet 1 tablet = 20 mg, By Mouth, Daily, # 90 tablet, 3 Refills, Maintenance, 08/03/23 12:52:00 EST, [facility] 1967, Partial fill upon patient request if the prescription is for a schedule II opioiddrug., 175, cm, 07/30/23 16:40:00 EST, Height, 126,... Start Date: 08/03/23 Stop Date: 07/28/24 Status: Ordered MiraLax oral powder for reconstitution = 17 Gm, By Mouth, Daily, dissolve in water before taking, # 527 Gm, 0 Refills, Maintenance, 09/03/22 23:10:00 EST, REC Powder, [facility] 1967, Partial fill upon patient [...] 12/29/23 16:28:00 EDT, Route to Pharmacy Electronically, [facility] 1967, 175, cm, 12/03/23 15:03:00 EDT, Height, 120.8, kg, 11/09/23 11:07:... Start Date: 12/29/23 Status: Ordered Ventolin HFA 108 mcg/inh inhalation aerosol with adapter 2 puffs, Inhalation, Every 4 hours, PRN NEEDED FOR WHEEZING, # 18 Gm, 0 Refills, Maintenance, 07/27/23 16:41:00 EST, [facility], 175, cm, 06/29/23 15:47:00 [...] Team Personnel Name: Cecilio Cornejo RN Position: [facility] RN Member Role: Primary Care Nurse Name: Lori Cervantes NP Position: [facility] PCO Associate Professional Member Role: PCP Address: Address: [address] [place] [id number] Name: Ian CORTÉS, Scotty Shultz Position: [facility] RN Member Role: Primary Care Nurse Name: Blanka CORTÉS, Nelson Position: [facility] ED RN W/OE and Tasks Member Role: Primary Care Nurse Name: Fiona Gillis RN Position: [facility] JOELL[facility] Office Staff Member Role: Primary Care Nurse Name: Eve Roy RN Position: [facility] RN Member Role: Primary Care Nurse Care Team Related Persons Name: BRAD DOMINGO Address: home [address] [place] [address] Name: CHACORTA DOMINGO Address: home [address] [place] [address] Name: DAMION MENARD Address: [place] [address]
--- OUTSIDE RECORDS SUMMARY | 2024-05-19 12:55 | XMS_ITS | Continuity of Care Document ---
Author Organization [facility] Adult Address [address] [place] [address]- Care Team Providers Care Warp Scouring Vat Tender Name Role Phone Lori Cervantes NP Primary Care Physician [phone] Encounter [facility] [place] Date(s): 03/24/24 - 04/23/24 [facility] [address] [place] [address]- Allergies, Adverse Reactions, Alerts Substance Reaction Severity Status papaya Active Bee Stings Active Immunizations Given and Recorded Vaccine Date Status Refusal Reason SARS-CoV-2(COVID-19)mRNA-LNP vac([id number]) 04/27/23 Recorded influenza virus vaccine, inactivated 04/16/23 [...] tablet, 5 Refills, Maintenance, 09/21/23 14:53:00 EDT, [facility], 175, cm, 07/30/23 16:40:00 EST, Height, 126, kg, 09/03/22 22:49:00 EST, DryWeight Start Date: 09/21/23 Status: Ordered furosemide 20 mg oral tablet 1, tablet, By Mouth, Daily, # 90 tablet, Refills 0, Maintenance, 08/27/23 7:12:00 EST, Route to Pharmacy Electronically, [facility] 1967, 175, cm, 07/30/23 16:40:00 EST, Height, 126, kg, 09/03/22 22:49:00 EST, Dry Weight Start Date: 08/27/23 Stop Date: 11/25/23 Status: Ordered levETIRAcetam 1000 mg oral tablet 1 tablet = 1,000 mg, By Mouth, 2 times a day, # 60 tablet, 11 Refills, Maintenance, 12/03/23 15:17:00 EDT, Tablet, [facility] 1967, Partial fill upon patient request, 175, cm, 12/03/23 15:03:00EDT, Height, 120.8, kg, 11/09/23 11:07:00 EDT, Dry... Start Date: 12/03/23 Stop Date: 11/27/24 Status: Ordered Lexapro 20 mg oral tablet 1 tablet = 20 mg, By Mouth, Daily, # 90 tablet, 3 Refills, Maintenance, 08/03/23 12:52:00 EST, [facility], Partial fill upon patient request if the prescription is for a schedule II opioiddrug., 175, cm, 07/30/23 16:40:00 EST, Height, 126,... Start Date: 08/03/23 Stop Date: 07/28/24 Status: Ordered MiraLax oral powder for reconstitution = 17 Gm, By Mouth, Daily, dissolve in water before taking, # 527 Gm, 0 Refills, Maintenance, 09/03/22 23:10:00 EST, REC Powder, [facility] 1967, Partial fill upon [...] 12/29/23 16:28:00 EDT, Route to Pharmacy Electronically, [facility] 1967, 175, cm, 12/03/23 15:03:00 EDT, Height, 120.8, kg, 11/09/23 11:07:... Start Date: 12/29/23 Status: Ordered Ventolin HFA 108 mcg/inh inhalation aerosol with adapter 2 puffs, Inhalation, Every 4 hours, PRN NEEDED FOR WHEEZING, # 18 Gm, 0 Refills, Maintenance, 07/27/23 16:41:00 EST, [facility], 175, cm, 06/29/23 [...] Team Personnel Name: Cecilio Cornejo RN Position: [facility] RN Member Role: Primary Care Nurse Name: Lori Cervantes NP Position: [facility] PCO Associate Professional Member Role: PCP Address: Address: [address] [place] [id number] Name: Ian CORTÉS, Scotty Shultz Position: [facility] RN Member Role: Primary Care Nurse Name: Blanka CORTÉS, Nelson Position: [facility] ED RN W/OE and Tasks Member Role: Primary Care Nurse Name: Fiona Gillis RN Position: [facility]LLEN Office Staff Member Role: Primary Care Nurse Name: Eve Roy RN Position: [facility] RN Member Role: Primary Care Nurse Care Team Related Persons Name: BRAD DOMINGO Address: home [address] [place] [address] Name: CHACORTA DOMINGO Address: home [address] [place] [address] Name: DAMION MENARD Address: [place] [address]
--- OUTSIDE RECORDS SUMMARY | 2024-05-19 12:56 | XMS_ITS | Continuity of Care Document ---
Author Organization [facility] Address [address] [place] [address]- Care Team Providers Care Banquet Coordinator Name Role Phone Lori Cervantes NP Primary Care Physician Encounter [facility] [place] Date(s): 03/03/24 - 04/20/[address] [address] Attending Physician: Lori Cervantes NP Admitting Physician: Helen STRATTON, Lori Referring Physician: Lori Cervantes NP Allergies, Adverse Reactions, Alerts Substance Reaction Severity Status papaya Active Bee Stings Active Immunizations Given and Recorded Vaccine Date Status Refusal Reason SARS-CoV-2(COVID-19)mRNA-LNP vac([id number]) 04/27/23 Recorded influenza virus vaccine, inactivated 04/16/23 [...] 28 capsule, 0 Refills, Maintenance, 03/24/24 14:57:00 LUANNT, [facility], Partial fill [...] tablet, 5 Refills, Maintenance, 09/21/23 14:53:00 EDT, [facility], 175, cm, 07/30/23 16:40:00 EST, Height, 126, kg, 09/03/22 22:49:00 EST, DryWeight Start Date: 09/21/23 Status: Ordered furosemide 20 mg oral tablet 1, tablet, By Mouth, Daily, # 90 tablet, Refills 0, Maintenance, 08/27/23 7:12:00 EST, Route to Pharmacy Electronically, [facility] 1967, 175, cm, 07/30/23 16:40:00 EST, Height, 126, kg, 09/03/22 22:49:00 EST, Dry Weight Start Date: 08/27/23 Stop Date: 11/25/23 Status: Ordered levETIRAcetam 1000 mg oral tablet 1 tablet = 1,000 mg, By Mouth, 2 times a day, # 60 tablet, 11 Refills, Maintenance, 12/03/23 15:17:00 EDT, Tablet, [facility], Partial fill upon patient request, 175, cm, 12/03/23 15:03:00EDT, Height, 120.8, kg, 11/09/23 11:07:00 EDT, Dry... Start Date: 12/03/23 Stop Date: 11/27/24 Status: Ordered Lexapro 20 mg oral tablet 1 tablet = 20 mg, By Mouth, Daily, # 90 tablet, 3 Refills, Maintenance, 08/03/23 12:52:00 EST, [facility], Partial fill upon patient request if the prescription is for a schedule II opioiddrug., 175, cm, 07/30/23 16:40:00 EST, Height, 126,... Start Date: 08/03/23 Stop Date: 07/28/24 Status: Ordered MiraLax oral powder for reconstitution = 17 Gm, By Mouth, Daily, dissolve in water before taking, # 527 Gm, 0 Refills, Maintenance, 09/03/22 23:10:00 EST, REC Powder, [facility] 1966, Partial fill upon patient [...] 12/29/23 16:28:00 EDT, [facility], 175, cm, 12/03/23 15:03:00 EDT, Height, 120.8, kg, 11/09/23 11:07:... Start Date: 12/29/23 Status: Ordered Ventolin HFA 108 mcg/inh inhalation aerosol with adapter 2 puffs, Inhalation, Every 4 hours, PRN NEEDED FOR WHEEZING, # 18 Gm, 0 Refills, Maintenance, 07/27/23 16:41:00 EST, [facility], 175, cm, 06/29/23 15:47:00 EST, [...] Professional Member Role: PCP Address: Address: [address] [place] [id number] Name: Ian CORTÉS, Scotty Shultz Position: [facility] RN Member Role: Primary Care Nurse Name: Blanka RNNelson Position: [facility] [...] Name: JOSE LBRAD JOSE Address: home [address] [place] [address] Name: CHACORTA DOMINGO Address: home [address] [place] [address] Name: DAMION MENARD Address: [place] [address]
== END 2024-05-15 08:33 | disposition home or self-care (01) ==
LOC: HO.HBS 07:40
PROVIDERS: PCP Nurse Practitioner Family; Visit Provider Surgery
DX: E66.812 Obesity, class 2 (principal); E66.01 Morbid (severe) obesity due to excess calories; Z68.36 Body mass index [BMI] 36.0-36.9, adult
CPT/HCPCS: 99499

== ENCOUNTER → 2024-05-15 07:40 | Outpatient (BNVA) | payer OTHER, SELFPAY | PROVIDERS: PCP Nurse Practitioner Family; Visit Provider Surgery ==

== ENCOUNTER 2024-05-24 08:01 | Day surgery (SDC) | payer OTHER, SELFPAY ==
[2024-05-17 07:17] LABS: MANUAL DIFF FLAG NO
[2024-05-17 07:24] LABS: Basophils Percent Auto 0.2 % (0-2); Eosinophils Absolute Auto 0.1 X10*3/uL (0.0-0.4); Eosinophils Percent Auto 1.8 % (0-4); Hematocrit 35.7 % (37.0-47.0); Hemoglobin 11.8 g/dl (12.0-16.0); Imm Gran Abs Auto 0.02 X10*3/uL (0.00-0.03); Imm Gran Pct Auto 0.4 % (0.0-0.4); Lymphocytes Absolute Auto 1.9 X10*3/uL (1.2-4.9); Lymphocytes Percent Auto 32.6 % (20-40); Mean Corpuscular HGB Conc 33.1 g/dl (31.0-35.0); Mean Corpuscular Hemoglobin 27.8 pg (27.0-33.0); Mean Platelet Volume 10.4 fL (9.4-12.3); Monocytes Absolute Auto 0.3 X10*3/uL (0.1-1.2); Neutrophils Absolute Auto 3.4 x10*3/uL (2.0-8.3); Platelet Count 273 X10*3/uL (160-400); Red Blood Count 4.25 X10*6/uL (4.20-5.50); Red Cell Distribution Width 14.2 % (11.0-16.0); White Blood Count 5.7 X10*3/uL (4.8-10.8)
[2024-05-17 07:33] LABS: Estimated Average Glucose 105 mg/dL; Hemoglobin A1C 102.7473 umol/L; Hemoglobin A1c % 5.3 % (<6.0); Total Hemoglobin (HGBA1C) 2996.2345 umol/L
[2024-05-17 07:34] LABS: INTERNATIONAL NORM RATIO 1.2 (0.9-1.1); Prothrombin Time 13.5 SEC (10.9-12.4)
[2024-05-17 07:36] LABS: Partial Thromboplastin Time 33.8 SEC (26.0-36.8)
[2024-05-17 07:52] LABS: Alanine Aminotransferase 10 U/L (0-31); Albumin Level 3.8 g/dL (3.5-5.0); Alkaline Phosphatase 62 U/L (39-117); Anion Gap 12 (12-20); Aspartate Amino Transferase 16 U/L (5-31); Bilirubin Total 0.6 mg/dL (0.0-1.0); Blood Urea Nitrogen 10 mg/dL (9-16); C Reactive Protein 1.14 mg/dL (< or = 0.50); Calcium 8.9 mg/dL (8.4-10.2); Carbon Dioxide 23 mmol/L (22-29); Chloride 105 mmol/L (96-108); Cholesterol 102 mg/dL (<200); Estimated Glomerular Filt Rate > 60; Glucose Random 89 mg/dL (60-115); HDL Cholesterol 33 mg/dL (>40); LDL Cholesterol Calculated 60 mg/dL (<100); Potassium 3.8 mmol/L (3.3-5.1); Sodium 136 mmol/L (135-145); Total Protein 7.6 g/dL (6.5-8.0); Triglycerides 47 mg/dL (<150)
[2024-05-17 08:18] LABS: TSH reflex Free T4 1.27 uIU/mL (0.32-4.0)
[2024-05-17 08:36] LABS: Insulin 7 uU/mL (2-29)
[2024-05-17 10:43] VITALS: BMI 35.9
--- NOTE | 2024-05-17 14:11 | HO.ANESPROP2 ---
Documented by User: Judy Carlin NP 05/23/24 08:17 HPI - Anesthesia Eval Consult details Narrative: 43yo F for Gastrectomy Sleeve-EGD, possible diaphragmatic hernia, possible ventral hernia, possible open Cardiac optimized Eliquis for Thalassemia syndrome, Hx PE/DVTs. Bridge with Arixtra Epilepsy with last seizure 7 years ago. Stable at 11/2023 Neuro office visit. Aware of bariatric surgery PMFSH Active Problems Active Problems: All Active Problems BMI 36.0-36.9,adult (Acute) Edema of left lower leg (Acute) Adjustment disorder with anxiety (Acute) Constipation (Acute) BMI 39.0-39.9,adult (Acute) Vitamin D deficiency (Acute) Vitamin A deficiency (Acute) Knee pain (Acute) Hip pain (Acute) Anxiety (Acute) Obesity (Acute) Hypothyroidism (Acute) Depression (Acute) GERD (gastroesophageal reflux disease) (Acute) Pulmonary embolism (Acute) Epilepsy (Acute) Morbid obesity (Acute) Past Medical History Medical History Urge incontinence Thalassemia syndrome Menorrhagia History of blood clots Bipolar 1 disorder Bilateral hearing loss ADHD COVID-19 Anxiety Obesity Hypothyroidism Depression GERD (gastroesophageal reflux disease) Pulmonary embolism Epilepsy Morbid obesity Family History Family History Father Coronary artery disease Hypertension Diabetes mellitus Mother Breast cancer Hypertension Daughter No problems noted. Son Asthma Food allergy Son Asthma Food allergy Son Food allergy Asthma Daughter No problems noted. Surgical History Surgical History History of laparoscopic cholecystectomy History of laparoscopic appendectomy Social History Social History Are you a primary care transition manager to a significant other at home: No Do you presently have visiting nurse or other home services: No Alcohol intake: current Alcohol intake frequency: does not drink Patient Tobacco Use Status: Never used Tobacco Use of substances other than those prescribed or required for medical reasons: No Have you been hit, kicked, punched, or otherwise hurt by someone within the past year? If so, by whom?: No Are you DNR?: No Advance Directives: No Advance Directives Information Provided: Yes Advance Directives on File: No Recently lost weight without trying: No Nutrition Risks: No Nutritional Risk Patient : No : No Poor oral hygiene: No Meds Allergies Allergy/AdvReac Type Severity Reaction Status Date / Time No Known Allergies Allergy Verified 05/24/24 08:34 [No Known Allergies*] Home Medications ?Medication ?Instructions ?Recorded ?Confirmed ?Last Taken ?Type apixaban 5 mg tablet (Eliquis) 5 mg PO BID 09/19/20 05/24/24 05/18/24 History bupropion HCl 150 mg tablet,12 hr 150 mg PO BID 09/19/20 05/24/24 05/22/24 History sustained-release (Wellbutrin SR) levetiracetam 1,000 mg tablet 1,000 mg PO BID 09/19/20 05/24/24 05/24/24 History (Keppra) escitalopram oxalate 20 mg tablet 20 mg PO DAILY 05/15/24 05/24/24 05/22/24 History etonogestrel 68 mg subdermal 68 mg subdermal ONCE 05/17/24 05/24/24 Unknown History implant (Nexplanon) Exam Height,Weight and Vital Signs: Height 5 ft 9 in Weight 110.223 kg Pertinent Lab Results Pertinent Lab Results: Laboratory Tests 05/17/24 05/17/24 07:15 07:16 WBC 5.7 RBC 4.25 Hgb 11.8 L Hct 35.7 L MCV 84.0 MCH 27.8 MCHC 33.1 RDW 14.2 Plt Count 273 MPV 10.4 Immature Gran % (Auto) 0.4 Neut % (Auto) 59.0 Lymph % (Auto) 32.6 Nance % (Auto) 6.0 Eos % (Auto) 1.8 Baso % (Auto) 0.2 Lymph # (Auto) 1.9 Nance # (Auto) 0.3 Eos # (Auto) 0.1 Baso # (Auto) 0.0 Abs Immat Gran (auto) 0.02 Absolute Neuts (auto) 3.4 Absolute Nucleated RBC 0.000 Nucleated RBC % (auto) 0.0 PT 13.5 H INR 1.2 H APTT 33.8 Sodium 136 Potassium 3.8 Chloride 105 Carbon Dioxide 23 Anion Gap 12 BUN 10 Creatinine 0.78 Estim Creat Clear Calc TNP Estimated GFR > 60 Random Glucose 89 Estimat Average Glucose 105 Hemoglobin A1c % 5.3 Insulin Level 7 Calcium 8.9 Total Bilirubin 0.6 AST 16 ALT 10 Alkaline Phosphatase 62 C-Reactive Protein 1.14 H Total Protein 7.6 Albumin 3.8 Triglycerides 47 Cholesterol 102 LDL Cholesterol, Calc 60 HDL Cholesterol 33 L TSH 1.27 Blood Type A Positive Antibody Screen NEGATIVE Narrative Narrative: EKG 03/2024 NSR @ 93 Assessment and Plan Assessment Anesthesia Assessment: Chart Reviewed Documented by User: Valeria Gurrola MD 05/24/24 10:27 [facility] Past Medical History Medical History Urge incontinence Thalassemia syndrome Menorrhagia History of blood clots Bipolar 1 disorder Bilateral hearing loss ADHD COVID-19 Anxiety Obesity Hypothyroidism Depression GERD (gastroesophageal reflux disease) Pulmonary embolism Epilepsy Morbid obesity Family History Family History Father Coronary artery disease Hypertension Diabetes mellitus Mother Breast cancer Hypertension Daughter No problems noted. Son Asthma Food allergy Son Asthma Food allergy Son Food allergy Asthma Daughter No problems noted. Surgical History Surgical History History of laparoscopic cholecystectomy History of laparoscopic appendectomy History of Problems with Anesthesia: No Social History Social History Are you a primary care transition manager to a significant other at home: No Do you presently have visiting nurse or other home services: No Alcohol intake: current Alcohol intake frequency: does not drink Patient Tobacco Use Status: Never used Tobacco Use of substances other than those prescribed or required for medical reasons: No Have you been hit, kicked, punched, or otherwise hurt by someone within the past year? If so, by whom?: No Are you DNR?: No Advance Directives: No Advance Directives Information Provided: Yes Advance Directives on File: No Recently lost weight without trying: No Nutrition Risks: No Nutritional Risk Patient : No : No Poor oral hygiene: No Meds Allergies Allergy/AdvReac Type Severity Reaction Status Date / Time No Known Allergies Allergy Verified 05/24/24 08:34 [No Known Allergies*] Home Medications ?Medication ?Instructions ?Recorded ?Confirmed ?Last Taken ?Type apixaban 5 mg tablet (Eliquis) 5 mg PO BID 09/19/20 05/24/24 05/18/24 History bupropion HCl 150 mg tablet,12 hr 150 mg PO BID 09/19/20 05/24/24 05/22/24 History sustained-release (Wellbutrin SR) levetiracetam 1,000 mg tablet 1,000 mg PO BID 09/19/20 05/24/24 05/24/24 History (Keppra) escitalopram oxalate 20 mg tablet 20 mg PO DAILY 05/15/24 05/24/24 05/22/24 History etonogestrel 68 mg subdermal 68 mg subdermal ONCE 05/17/24 05/24/24 Unknown History implant (Nexplanon) Exam Airway Mallampati Class: II TM Dist: >3cm Neck ROM: Full Loose/Missing/Broken Teeth: No Heart: RRR Lungs: CTA Assessment and Plan Assessment Anesthesia Assessment: Anesthesia Plan Discussed Final Anesthetic Review History of Problems with Anesthesia: No NPO: Yes ASA Class: III Final Preanesthetic Review: Meds/Allgs Chart Reviewed, Consent Obtained/Reviewed and Anes Risks/Benef Reviewed Patient Risk: Intermediate Procedure Risk: Intermediate Anesthetic Plan Anesthetic Plan: GA Disposition: Standard PACU
[2024-05-24] VITALS (11 sets, daily range): BP systolic 137–145; BP diastolic 74–92; PULSE 77–96; RESP 10–20; TEMP 36.1–36.9; O2SAT 97–100; BMI 35.1
--- OUTSIDE RECORDS SUMMARY | 2024-05-24 08:07 | XMS_ITS | Continuity of Care Document ---
Author Organization [facility] Address [address] [place] [address]- [facility] Name Relationship Address Phone CHACORTA DOMINGO Other Unknown Unavailable RHONDA DOWLING Personal Relationship Unknown Uyen vailable BRAD DOMINGO spouse Unknown Unavailable MENARDDAMION sibling Unknown Unavailable Care Team Providers Care Cooking Appliance Repair Technician Name Role Phone Lori Cervantes NP Primary Care Physician [phone] [place] [facility] [place]/24 [facility] [address] [place], [place] [address] Attending Physician: Dottie Akins Admitting Physician: AdmDottie samuel Referring Physician: AdmtrDottie Encounter Type: Triage Allergies, Adverse Reactions, Alerts Substance Criticality Severity Reaction Reaction Severity Status papaya Active Bee Stings Active Immunizations Given and Recorded Vaccine Date Status Refusal Reason SARS-CoV-2(COVID-19)mRNA-LNP vac([id number]) 04/27/23 Recorded influenza virus vaccine, inactivated 04/16/23 [...] 28 capsule, 0 Refills, Maintenance, 04/28/24 9:02:00 AM EDT, ER Capsule, [facility] 1967, Partial fill upon patient request if the prescription is for a schedule II opioid drug., 1 capsule By Mouth Daily,x28 days, 04/28/24, 175, cm, 04/19/24 8:13:00 EDT, Height, 120.8, kg, 11/09/23 11:07:00 EDT, Dry Weight Start Date: 04/28/24 Stop Date: 05/26/24 Status: Ordered Quantity: 28.0 Unit: capsule Repeat number: 1 Compression Stockings See Instructions, # 2 each, Refills 2, Tot. Refills 2, Maintenance, surgical, knee length 20-30 mm Hg, 06/23/21 8:35:00 AM EST, Supply Start Date: 06/23/21 Status: Ordered Quantity: 2.0 Unit: each Repeat number: 3 Indication: Localized edema Eliquis 2.5 mg oral tablet 1 tablet, By Mouth, 2 times a day, # 60 tablet, 5 Refills, Maintenance, 09/21/23 2:53:00 PM EDT, [facility], 175, cm, 07/30/23 16:40:00 EST, Height, 126, kg, 09/03/22 22:49:00 EST, Dry Weight Start Date: 09/21/23 Status: Ordered Quantity: 60.0 Unit: tablet Repeat number: 1 escitalopram 20 mg oral tablet 1 tablet, By Mouth, Daily, # 90 tablet, 0 Refills, Maintenance, 05/16/24 7:46:00 AM EST, [facility], 175, cm, 04/19/24 8:13:00 EDT, Height, 120.8, kg, 11/09/23 11:07:00 EDT, Dry Weight Start Date: 05/16/24 Status: Ordered Quantity: 90.0 Unit: tablet Repeat number: 1 furosemide 20 mg oral tablet 1, tablet, By Mouth, Daily, # 90 tablet, Refills 0, Maintenance, 08/27/23 7:12:00 AM EST, Route to Pharmacy Electronically, [facility], 175, cm, 07/30/23 16:40:00 EST, Height, 126, kg, 09/03/22 22:49:00 EST, Dry Weight Start Date: 08/27/23 Stop Date: 11/25/23 Status: Ordered Quantity: 90.0 Unit: tablet Repeat number: 1 levETIRAcetam 1000 mg oral tablet 1 tablet = 1,000 mg, By Mouth, 2 times a day, # 60 tablet, 11 Refills, Maintenance, 12/03/23 3:17:00 PM EDT, Tablet, [facility] 1966, Partial fill upon patient request, 175, cm, 12/03/23 15:03:00EDT, Height, 120.8, kg, 11/09/23 11:07:00 EDT, Dry Weight Start Date: 12/03/23 Stop Date: 11/27/24 Status: Ordered Quantity: 60.0 Unit: tablet Repeat number: 12 MiraLax oral powder for reconstitution = 17 Gm, By Mouth, Daily, dissolve in water before taking, # 527 Gm, 0 Refills, Maintenance, 09/03/2310:10:00 PM EST, REC Powder, [facility] 1966, Partial fill upon patient request if the prescription is for a schedule II opioid drug., 17 Gm By Mouth Daily,Instr:dissolve in water before taking, 175, cm, 09/03/22 22:49:00 EST, Height, 126, kg, 09/03/22 22:49:00 EST, Dry Weight Start Date: 09/03/22 Status: Ordered Quantity: 527.0 Unit: g Repeat number: 1 Nexplanon 68 mg subcutaneous implant 1 each = 68 mg, Subcutaneous Infusion, Once, 0 Refills, Maintenance, 04/01/23 9:45:00 AM EDT, Partial fill upon patient request if the prescription is for a schedule II opioid drug. Start Date: 04/01/23 Status: Ordered Repeat number: 1 traZODone 50 mg oral tablet 1, tablet, By Mouth, Daily at bedtime, PRN, # 30 tablet, Refills 5, Maintenance, NEEDED FOR INSOMNIA, 12/29/23 4:28:00 PM EDT, Route to Pharmacy Electronically, [facility], 175, cm, 12/03/23 15:03:00 EDT, Height, 120.8, kg, 11/09/23 11:07:00 EDT, Dry Weight Start Date: 12/29/23 Status: Ordered Quantity: 30.0 Unit: tablet Repeat number: 1 Ventolin HFA 108 mcg/inh inhalation aerosol with adapter 2 puffs, Inhalation, Every 4 hours, PRN NEEDED FOR WHEEZING, # 18 Gm, 0 Refills, Maintenance, 07/27/23 4:41:00 PM EST, [facility], 175, cm, 06/29/23 15:47:00 EST, Height, 126, kg, 09/03/22 22:49:00 EST, Dry Weight Start Date: 07/27/23 Status: Ordered Quantity: 18.0 Unit: g Repeat number: 1 Problem List Condition Confirmation Course Effective Dates [...] Never smoker entered on: 12/05/15 Sex Female Sex Representation Female (finding) Patient Care team information Care Team Personnel Name: Cecilio Cornejo RN Position: [facility] RN Member Role: Primary Care Nurse Name: Lori Cervantes NP Position: [facility] PCO Associate Professional Member Role: PCP Address: [address] [place] [address] Telecom: Name: Ian CORTÉS, Scotty Shultz Position: [facility] RN Member Role: Primary Care Nurse Name: Blanka RNNelson Position: [facility] ED RN W/OE and Tasks Member Role: Primary Care Nurse Name: Fiona Gillis RN Position: [facility] JO[facility] Office Staff Member Role: Primary Care Nurse Name: Eve Roy RN Position: [facility] RN Member Role: Primary Care Nurse Care Team Related Persons Name: BRAD DOMINGO Name: CHACORTA DOMINGO Name: DAMION MENARD Insurance Providers Guarantor name: [facility] Information #: 1 Payer: [facility] Member Number: NA Policy Number: NA Group Number: NA
[2024-05-24 08:43] LABS: UPreg QC Valid YES; Urine Pregnancy NEGATIVE (NEGATIVE)
[2024-05-24] MEDS: Lactated Ringers 1,000 ML 100 ML IVCONT ×2 (08:56→14:37)
[2024-05-24] MEDS: Lactated Ringers 1,000 ML 999 ML IV (08:56)
[2024-05-24] MEDS: Aprepitant 32 MG/4.4 ML VIAL IVPUSH (08:56)
--- NOTE | 2024-05-24 10:19 | MHC.SHP ---
Pre-Procedural Eval Section A - 24 Hr Update-Section A only Date of Service: 05/24/24 The patient is an INPATIENT: No The patient has been examined within 24 hours of the surgical procedure. The History & Physical has been completed within 30 days and I have reviewed it.: Yes Section B - Complete if H&P > 30 days Chief Complaint: Obesity, unspecified Relevant Family History (Specify if Yes): No Relevant Social History: None Present Medications: None Medical History: No relevant PMH History of Previous Operations: No relevant previous surgery Allergies: Allergies Allergy/AdvReac Type Severity Reaction Status Date / Time No Known Allergies Allergy Verified 05/24/24 08:34 [No Known Allergies*] Review of Systems Sugical H&P ROS: Negative: Constitution, Cardiovascular, Respiratory, Neurological, Psychiatric, Hem-Onc, Allergic/Immunologic, Gastrointestinal, Genitourinary, Musculoskeletal, Integumentary, Endocrine and Eyes/Ears/Nose/Throat Exam Surgical H&P Exam: Normal: HEENT, Normal: Heart, Normal: Lungs, Normal: Extremities, Normal: Abdomen, Normal: Skin and Normal: Neurological Plan Diagnosis/Plan: Unchanged I have reviewed the history and physical and performed a pertinent physical examination on my patient. No changes have occurred unless specified. Time Spent With Patient Time: Total time managing care of this patient today ____ minutes.
--- NOTE | 2024-05-24 10:26 | PM.OP ---
Brief Operative Note Date of Service: 05/24/24 Pre-op diagnosis: Severe obesity with comorbidities (see below) Post-op diagnosis: same (extensive retrogastric adhesions) Procedure: INITIAL PATIENT BMI ON PRESENTATION AT OUR OFFICE: 39.2 kg/m2 LAST BMI BEFORE SURGERY: 36 kg/m2 COMORBIDITIES: pulmonary embolism x2 after , anxiety, epilepsy, hypothyroidism, GERD, knee pain ?The patient presented to the Weight Management Program with significant obesity that was negatively impacting the patient's comorbidities as listed above.? The program is a phased program with a special focus on preoperative medical weight management to promote substantial weight loss and prepare the patients for the second phase of the program: bariatric surgery. The patient participated in an intensive weekly lifestyle ?intervention and exercise program during which the patient ?has lost between the initial office visit and the last preoperative visit 36.6lbs, or 13.1% of initial actual body weight. It was deemed appropriate for the patient to now have bariatric surgery. In light of the current Covid-19 pandemic and the well documented strong association of obesity and increased risk of worse outcomes if infected with Covid-19 (REFERENCES:https://pubmed.ncbi.nlm.nih.gov/65750225/,?https://pubmed.ncbi.nlm.nih.gov/57004465/), any delay in undergoing bariatric surgery may lead to the patient's worsening health condition and increased?risk of more severe Covid-19 disease if infected. In addition a recent?study from [facility] published in [employer] [facility] on 06/23/2021 ([email or web address]) found that, among patients with obesity, substantial weight loss achieved with surgery was associated with improved outcomes of COVID-19 infection. The findings suggest that obesity can be a modifiable risk factor for the severity of COVID-19 infection. In addition, the patient met the BMI-criteria for bariatric surgery based on the BMI on initial presentation. The patient should not be penalized for achieving such weight loss because ?it is not sustainable long-term without surgical intervention and it was achieved in preparation for bariatric surgery ?under my direction and based on my published research ([email or web address]).[email or web address] and?https://www.soard.org/article/[email or web address](78)18196-X/pdf) ?that a 10% preoperative weight loss improves long-term weight loss after surgery and reduces perioperative complications.? Insurance carriers such as [facility] have endorsed my recommendations ?and have included in their policies criteria to include a 10% preoperative weight loss requirement. PROCEDURE: Esophago-gastroscopy, extensive laparoscopic lysis of adhesions, laparoscopic sleeve gastrectomy and laparoscopic gastropexy INDICATIONS: This is a 43 year-old female who was electively scheduled for laparoscopic, possibly open sleeve gastrectomy. The risks and complications of the procedure were discussed with the patient in advance, particularly the possibility of ; pulmonary embolism; staple line leak; bleeding; GERD; cardiac, pulmonary, or renal complications; as well as long-term problems such as insufficient weight loss, vitamin deficiency, strictures, or ulcers. The patient understood all the risks, and was in agreement to proceed with surgery. DESCRIPTION OF PROCEDURE: After informed consent was obtained from the patient, the patient was given preoperative antibiotics, and was transferred to the operating room. After successful induction of general anesthesia, pneumatic compression devices were placed on both lower extremities. An upper endoscopy was performed next. The oropharynx and esophagus appeared to be within normal limits. There was no significant diaphragmatic hernia present. The stomach was entered. Then after all fluid and air were suctioned and the stomach was fully decompressed, the scope was withdrawn and secured in the mid esophagus. The patient was then prepped and draped in the usual sterile manner, and abdominal access was established at the right upper quadrant with the Ulysses technique. A 12 mm blunt port was inserted, and the abdomen was insufflated with CO2 to a pressure of 15 mmHg. Under direct visualization, additional ports were placed, specifically two 5 mm Versi-step ports to the left upper quadrant, and a 5 mm Versi-Step port to the right upper quadrant. 1% lidocaine plain was used to infiltrate all port sites as well as all fascia defects. Following that, the patient was placed in a steep reverse Trendelenburg position. An additional 5 mm port was placed to the right flank for the Mediflex retractor that was used to retract the left lobe of the liver. The gastro-esophageal fat pad was opened with the ultrasonic device (Yanierbeat, Olympus) and the anterior esophagus and hiatus were exposed. The angle of His was opened with the ultrasonic device the fundus of the stomach from any diaphragmatic and splenic attachments. I then opened the gastrocolic ligament between the transverse colon and the greater curvature of the stomach with the ultrasonic device to enter the lesser sac and facilitate the ligation of the short gastric vessels. I started at a mid-point along the greater curvature and using the Thunderbeat, all short gastric vessels were divided all the way to the angle of His until the left anita was completely dissected at its entirety. I then divided the gastro-colic ligament distally to a distance of about 3-4 cm proximal to the pylorus. There were extensive congenital adhesions between the pancreas and posterior gastric wall. Those were lysed completely with the ultrasonic device. Adhesiolysis took approximately 45 min to complete. ? The stomach was then divided transversely with three Endo BEAR-45 purple and three BEAR-60 articulating purple loads using the SyndevrxIA stapler and loads. Every effort was made that the gastric sleeve had a tubular shape and an even caliber throughout. Once the sleeve resection was completed, the staple line of the gastric sleeve was reinforced with Hemoclips. The resected stomach was retrieved without difficulty from the Ulysses port. A gastropexy was then performed in order to prevent postoperative GERD and partial gastric volvulus. Several interrupted 2.0 Surgidac sutures were placed between the sleeve's staple line and the previously divided greater omentum and gastro-colic ligament using the Endo-Stitch device. ?An upper endoscopy was performed. There was no narrowing at the GE junction. The scope was easily advanced all the way to the pylorus which was clearly visualized. There was no narrowing anywhere and the sleeve's caliber was even throughout. The sleeve's staple line was inspected and there was no evidence of ischemia, bleeding or dehiscence. At that point the gastroscope was withdrawn from the patient?s mouth while we were decompressing the bowel and the stomach from any remaining air. I looked into the lesser sac to see how the sleeve was situating and it was situating well. There was no bleeding from the staple line, spleen, or short gastric vessels. The Mediflex retractor was removed, and the undersurface of the liver was inspected and there was no bleeding. The patient was placed in supine position. I closed the fascial defect of the 12 mm port site with a figure of eight #1 Polysorb suture. Then 30cc Ropivacaine plain with 10 mg of Dexamethasone were used to infiltrate the fascial closure as well as all skin incisions. At this point, the abdomen was deflated, all ports were removed under direct vision, and no bleeding was noted from any of the port sites. The skin incisions were irrigated with saline and were closed with 4-0 absorbable monofilament sutures. Steri-Strips and OpSites were used to cover all incisions. The patient was extubated and was transferred in stable condition to the recovery room for further care. I was present and performed all smith parts of the procedure. Mr. Garland was the assistant statistician. There were no residents to assist with this case. Poli Salinas MD, PhD, FACS Surgeon: Davi Salinas MD Anesthesia: GETA, local and other (TAP block) Was an Factory Superintendent used for this Procedure?: No Factory Superintendent: Jacques Garland Estimated blood loss (mL): 10 IV fluids (mL): 2,200 Urine output (mL): 0 (No Rubi to record output) Pathology: other (Stomach) Condition: stable Disposition: PACU
--- NOTE | 2024-05-24 12:54 | PM.DS ---
DS: Providers Provider Date of Service: 05/25/24 Primary care physician: Lori Cervantes NP DS: Summary Hospital Course Hospital Course: ADMITTING DIAGNOSIS: obesity, sz do, hypothyroid, anxiety, depression, hx pe, ? DISCHARGE DIAGNOSIS: same, s/p laparoscopic sleeve gastrectomy ? PAST SURGICAL HISTORY: laparoscopic cholecystectomy, laparoscopic appendectomy ? PROCEDURE: upper endoscopy, laparoscopic sleeve gastrectomy ? DISCHARGE SUMMARY: ? History of Present Illness: ? The patient is a?43 year-old woman with a BMI of?38.6 kg/m2 and associated co-morbidities as described above. The patient had extensive work-up,lost?19.2 lbs preoperatively and was electively scheduled for laparoscopic, possible open sleeve gastrectomy and gastropexy. Risks and complications of the surgery were discussed with the patient in advance, particularly the possibility of , pulmonary embolism, anastomotic leak, bleeding, bowel injury, GERD, cardiac, renal or pulmonary complications. The patient understood all the risks and was in agreement with the surgical plan. ? Hospital Course: ? The patient underwent an uneventful laparoscopic sleeve gastrectomy with gastropexy on the day of admission. Postoperatively, the patient was transferred to the surgical floor. The patient received IV Acetaminophen and IV dilaudid for pain control. Patient was started on bariatric phase 1 diet POD #0. On postoperative day one, the patient was feeling well without nausea, vomiting, fevers, or tachycardia. The patient had some mild incisional pain and the abdomen was soft. ? On the morning of postoperative day one, the patient was continued on 1 ounce of water or ice every half hour. During the day, the patient did fairly well, having some incisional pain, but able to ambulate adequately and to tolerate liquids well. ? Since the patient is doing well, we decided that the patient was ready to be discharged. The patient was given instructions to follow-up with me next week and to call my office for any fever over 101, persistent abdominal pain, nausea, vomiting, GERD, symptoms of DVT such as calf tenderness, or leg swelling, or pulmonary embolism such as chest pain or shortness of breath. The patient was also instructed to drink 40-60 ounces of liquids per day using the 1-ounce cups. The patient had been given prescriptions for Tylenol for pain, Zofran prn for nausea, and pantoprazole and carafate previously. The patient was encouraged to ambulate and use the incentive spirometer. The patient was allowed to shower, but no baths, and encouraged to stay active at home. All of these instructions were given to the patient personally. All questions were answered and the patient understood all instructions, the instructions were also given to the patient in print. Time Attestation Total time managing care of this patient today: 25 mintues. Discharge Coordination Time (in mins): 25 Quality: Safe Use of Opioids Does Pt have an Active Cancer Diagnosis on the Problem List?: No Quality: Stroke Does the patient have a stroke diagnosis?: No Physical Exam Vital Signs: Vital Signs: Last Vital Signs Temp 98.5 F 05/24/24 08:43 Pulse 77 05/24/24 08:43 Resp 16 05/24/24 08:43 BP 143/90 H 05/24/24 08:43 Pulse Ox 99 05/24/24 08:43 O2 Del Method Room Air 05/24/24 08:43 BMI result Body Mass Index 35.1 DS: Data Data Completed and Pending Pending studies at discharge: Pending at discharge 05/24/24 11:46 Surgical [PTH] Routine Labs on day of discharge: Laboratory Results - last 24 hr 05/24/24 08:15 Urine Test NEGATIVE Discharge Plan Discharge Patient Disposition: Home, Self-Care Referrals: Lori Cervantes NP [Primary Care Provider] - 1 Week Discharge Medications: Continued Nexplanon 68 mg Implant 68 mg SUBDERMAL ONCE Patient Comments: left arm trazodone 50 mg tablet 50 mg PO BEDTIME PRN (Reason: insomnia) dextroamphetamine-amphetamine [Adderall XR] 10 mg capsule,extended release 24hr 1 cap PO DAILY furosemide 20 mg tablet 20 mg PO DAILY PRN (Reason: Edema) levetiracetam [Keppra] 1,000 mg tablet 1,000 mg PO BID pantoprazole 40 mg tablet,delayed release (DR/EC) 40 mg PO DAILY Qty: 90 0RF sucralfate 100 mg/mL suspension 10 ml PO BID Qty: 600 2RF ondansetron 4 mg tablet,disintegrating 4 mg PO Q12H Qty: 20 0RF Rx Instructions: Only take one every 12 hours as needed if you have nausea escitalopram oxalate 20 mg tablet 20 mg PO DAILY Held Eliquis 2.5 mg tablet 2.5 mg PO BID Hold Instructions: Until discuss with Dr. De La Cruz fondaparinux 2.5 mg/0.5 mL syringe 2.5 mg subcut Q24H Qty: 5 1RF Hold Instructions: until discussed with dr de la cruz Rx Instructions: Start Fondaparinux on 05/18/24 and take one per day with last dose on 05/22/24 Discontinued Vitron-C 65 mg iron- 125 mg tablet,delayed release (DR/EC) 1 tab PO DAILY 90 Days Qty: 90 0RF Rx Instructions: swallow whole; do not chew/break/dissolve/open cholecalciferol (vitamin D3) 125 mcg (5,000 unit) capsule 125 mcg PO DAILY 90 Days Qty: 90 0RF vitamin A palmitate 3,000 mcg (10,000 unit) capsule 3,000 mcg PO DAILY 60 Days Qty: 60 0RF Discharge Orders: Discharge Order (Routine); Ordered 05/25/24 Ordered By: Jacques Garland Activity on Discharge: No heavy lifting Activity Restrictions/Additional Instructions: No tub baths, sex or returning to work until discussed at first post op appointment. No exercise, alcohol, tobacco or illegal drug use. Continue to use incentive spirometer hourly while awake. Walk in home for 5- 10 minutes every 2 hours during the first week. Follow all instructions in the bariatric handbook and call with any questions.Discharge Instructions 1. Please call your doctor or come back to the emergency room should any new symptoms arise. 2. You will receive a courtesy call from [facility] 24-48 hours after discharge. 3. Activity: abstain from alcohol, practice limited stair climbing, no bending, no driving, no exercise, no illicit substances, no lifting, no sex, no tub bath, no work. 4. Diet: continue as discussed with Dr. De La Cruz. 5. Dressing Change/Wound Care: Your incision is covered by clear bandages and guaze underneath. If the area is tender, you may apply an ice pack for short intervals (no more than 20 minutes on, followed by at least 20 minutes off). Do not apply heat. Do not use creams, lotions, or topical antibiotics unless instructed to do so by your surgeon. These can cause infection or allergic reaction. 6. Call your doctor if: - Your temperature exceeds 101.5 F - You experience excessive pain or swelling - You have an unexpected reaction to medication - You have excessive bleeding - You experience continued vomiting/nausea - Your incision begins to separate - Your incision shows signs of infection such as increased redness, swelling, excessive pain, heat, or drainage (light blood or clear fluid is normal) 7. General instructions: No lifting greater than 5 lbs for 1 week and not more than 20lbs the next 3?weeks. No driving until seen at the office in 5-7 days after surgery. If you do not move your bowels in the next 2 days, please tell?Dr. De La Cruz. Please walk around your home every hour or two to prevent blood clots from forming in your legs. You do not need to wake from sleeping to walk. Please sleep in a bed or couch to prevent kinking at the hips and knees. Please take your incentive spirometer (your lung field operations farm manager) home with you and use it for the next few days to prevent pneumonia. You may shower, no hot tubs, baths or swimming pools.?Please follow the post op diet instructions you are?given by Dr De La Cruz? and text me daily at 5-6pm for an update.?If you have any issues or concerns or questions please communicate this to him via text.? The Celebrate shakes have all of the bariatric vitamins you need if you consume these shakes. If you are drinking other protein shakes, you will need to purchase the Celebrate multivitamins and calcium that are available in the hospital gift shop on the first floor of the [facility].??Do not take anything without first discussing with Dr De La Cruz. Please make sure you are consuming at least 40 ounces of fluids per day starting the?day AFTER your discharge from the hospital. Always drink 1-2 ml per minute using the 5ml?syringe. If you drink faster you may experience?bloating,?gas pain, burping, nausea or heartburn. In that case please slow down your pace and use the syringe to?understand better the?proper?pace and volume of drinking. Do not hesitate to contact the office with any questions at . The patient's medical history has been reviewed and they are considered low risk for post op DVT and therefore DVT prophylaxis is not considered necessary. Travel after surgery was reviewed. The patient has not disclosed any travel plans during the first 30 days after surgery and they have been advised that within the first 30 days after surgery any bus, plane, train or car travel over 2 hours in duration is contraindicated due to the possibility of developing blood clots from immobility. Any travel, needs to include periods of ambulation of 10 minutes in duration every 2 hours.? The patient was instructed to discuss any plans for travel during this period with their bariatric surgeon. Print Language: Serbian
[2024-05-24 13:29] LABS: Hematocrit 30.8 % (37.0-47.0); Hemoglobin 10.4 g/dl (12.0-16.0)
[2024-05-24 13:44] LABS: Anion Gap 13 (12-20); Blood Urea Nitrogen 6 mg/dL (9-16); Calcium 8.3 mg/dL (8.4-10.2); Carbon Dioxide 20 mmol/L (22-29); Chloride 108 mmol/L (96-108); Creatinine Clr Calc Pharmacy 134.6; Estimated Glomerular Filt Rate > 60; Glucose Random 148 mg/dL (60-115); Potassium 3.5 mmol/L (3.3-5.1); Sodium 137 mmol/L (135-145)
[2024-05-24] MEDS: ceFAZolin Sodium/Dextrose,Iso 2 GM/50 ML PIGGYBACK IV (16:01)
[2024-05-24] MEDS: Acetaminophen 1,000 MG/100 ML PIGGYBACK 16.7 MG IV ×2 (16:38→21:57)
--- NOTE | 2024-05-24 17:25 | PHA.MEDREC ---
Pharmacy Consult ? Medication Reconciliation Pharmacy has reviewed the medication reconciliation done by nursing staff. I went to talk to patient, she was still very drowsy but able to confirm her medications. She said she does not take bupropion (there's no pharmacy claim and also called ghislaine to confirm this), she takes escitalopram instead. She was able to say that her dose of eliquis is 2.5 mg bid, last taken on last . She is still using the fondaparinux, last dose was on wednesday. She takes trazodone and furosemide as needed. Got the ok from Jacques Garland to cancel the bupropion order.
[2024-05-24] MEDS: HYDROmorphone HCl 0.5 MG/0.5 ML SYRINGE 0.25 MG IVPUSH (20:14)
[2024-05-24] MEDS: 0.9 % Sodium Chloride Flush 3 ML SYRINGE IVFLUSH (20:15)
[2024-05-25] MEDS: Lactated Ringers 1,000 ML 100 ML IVCONT ×2 (00:36→10:02)
[2024-05-25] MEDS: Acetaminophen 1,000 MG/100 ML PIGGYBACK 16.7 MG IV ×2 (03:50→10:01)
[2024-05-25 04:00] VITALS: BP 143/84; PULSE 75; RESP 16; TEMP 36.8; O2SAT 99
[2024-05-25] MEDS: ondansetron HCL 4 MG/2 ML VIAL IVPUSH (04:08)
[2024-05-25] MEDS: HYDROmorphone HCl 0.5 MG/0.5 ML SYRINGE 0.25 MG IVPUSH (05:11)
[2024-05-25] MEDS: Pantoprazole Sodium 40 MG/10 ML VIAL IVPUSH (05:41)
[2024-05-25 06:33] LABS: MANUAL DIFF FLAG NO
[2024-05-25 06:38] LABS: Basophils Percent Auto 0.1 % (0-2); Hematocrit 35.3 % (37.0-47.0); Hemoglobin 11.6 g/dl (12.0-16.0); Imm Gran Abs Auto 0.06 X10*3/uL (0.00-0.03); Imm Gran Pct Auto 0.5 % (0.0-0.4); Lymphocytes Absolute Auto 1.1 X10*3/uL (1.2-4.9); Lymphocytes Percent Auto 8.4 % (20-40); Mean Corpuscular HGB Conc 32.9 g/dl (31.0-35.0); Mean Corpuscular Hemoglobin 27.9 pg (27.0-33.0); Mean Corpuscular Volume 84.9 fL (80.0-98.0); Mean Platelet Volume 11.4 fL (9.4-12.3); Monocytes Absolute Auto 0.5 X10*3/uL (0.1-1.2); Monocytes Percent Auto 3.8 % (2-11); Neutrophils Absolute Auto 10.9 x10*3/uL (2.0-8.3); Neutrophils Percent Auto 87.2 % (45-73); Platelet Count 271 X10*3/uL (160-400); Red Blood Count 4.16 X10*6/uL (4.20-5.50); Red Cell Distribution Width 13.9 % (11.0-16.0); White Blood Count 12.5 X10*3/uL (4.8-10.8)
[2024-05-25 06:53] LABS: Anion Gap 14 (12-20); Blood Urea Nitrogen 5 mg/dL (9-16); Carbon Dioxide 22 mmol/L (22-29); Chloride 103 mmol/L (96-108); Creatinine Clr Calc Pharmacy 124.2; Estimated Glomerular Filt Rate > 60; Glucose Random 99 mg/dL (60-115); Potassium 4.1 mmol/L (3.3-5.1); Sodium 135 mmol/L (135-145)
[2024-05-25 07:17] VITALS: BP 130/68; PULSE 83; RESP 16; TEMP 36.8; O2SAT 97
[2024-05-25] MEDS: Escitalopram Oxalate 20 MG TABLET PO (08:02)
[2024-05-25] MEDS: levETIRAcetam 1,000 MG TABLET 1000 MG PO (08:02)
--- NOTE | 2024-05-25 10:51 | P.PNGS_ITS ---
Subjective Subjective Date of Service: 05/25/24 Interval history: 43-year-old female, postop day 1., status post laparoscopic sleeve gastrectomy. Overnight, she had some mid epigastric incisional pain, controlled with IV acetaminophen. She was slow to start drinking fluids but improved significantly as the morning progressed. Physical Exam 2 Vital Signs: Vital Signs: Last Vital Signs Temp 98.2 F 05/25/24 07:17 Pulse 83 05/25/24 07:17 Resp 16 05/25/24 07:17 BP 130/68 05/25/24 07:17 Pulse Ox 97 05/25/24 07:17 O2 Del Method Room Air 05/25/24 07:17 O2 Flow Rate 2 05/24/24 13:02 BMI result Body Mass Index 35.1 Const: General: cooperative, healthy appearing and no acute distress GI: Inspection: Yes incision (Clean, dry, intact.) Objective Data Active Medications Escitalopram Oxalate (Escitalopram Oxalate 20 Mg Tablet) 20 mg PO DAILY [facility] Last Admin: 05/25/24 08:02 Dose: 20 mg Documented By: MICHELLE Hydromorphone HCl (Hydromorphone Hcl 0.5 Mg/0.5 Ml Syringe) 0.25 mg IVPUSH Q4H PRN; Protocol PRN Reason: Pain, Moderate(Pain Scale 4-6) Last Admin: 05/25/24 05:11 Dose: 0.25 mg Documented By: CADEN Lactated Ringer's (Lr) 1,000 mls @ 100 mls/hr IVCONT .Q10H [facility] Last Admin: 05/25/24 10:02 Dose: 100 mls/hr Documented By: MICHELLE Acetaminophen (Ofirmev) 1,000 mg in 100 mls @ 16.7 mls/hr IV .Q6H [facility] Last Admin: 05/25/24 10:01 Dose: 16.7 mls/hr Documented By: MICHELLE Levetiracetam (Levetiracetam 1,000 Mg Tablet) 1,000 mg PO BID [facility] Last Admin: 05/25/24 08:02 Dose: 1,000 mg Documented By: MICHELLE Ondansetron HCl (Ondansetron Hcl 4 Mg/2 Ml Vial) 4 mg IVPUSH Q8H PRN PRN Reason: Nausea Last Admin: 05/25/24 04:08 Dose: 4 mg Documented By: CADEN Pantoprazole Sodium (Pantoprazole Sodium 40 Mg/10 Ml Vial) 40 mg IVPUSH DAILY@0630 [facility] Last Admin: 05/25/24 05:41 Dose: 40 mg Documented By: CADEN Sodium Chloride (0.9 % Sodium Chloride Flush 3 Ml Syringe) 3 ml IVFLUSH QSHIFT [facility] Last Admin: 05/25/24 07:08 Dose: Not Given Documented By: MICHELLE Non-Admin Reason: IV Running Labs 05/25/24 05:31 05/25/24 05:31 Labs: Laboratory Results - last 24 hr 05/24/24 05/25/24 13:21 05:31 MCV 84.9 MCH 27.9 MCHC 32.9 RDW 13.9 Plt Count 271 MPV 11.4 Immature Gran % (Auto) 0.5 H Neut % (Auto) 87.2 H Lymph % (Auto) 8.4 L [place] % (Auto) 3.8 Eos % (Auto) 0.0 Baso % (Auto) 0.1 Lymph # (Auto) 1.1 L [place] # (Auto) 0.5 Eos # (Auto) 0.0 Baso # (Auto) 0.0 Abs Immat Gran (auto) 0.06 H Absolute Neuts (auto) 10.9 H Absolute Nucleated RBC 0.000 Nucleated RBC % (auto) 0.0 Anion Gap 13 14 Estim Creat Clear Calc 134.6 124.2 Estimated GFR > 60 > 60 Random Glucose 148 H 99 Calcium 8.3 L D 9.0 D Procedures Date of Service Date of Service: 05/25/24 Progress Note: A&P Assessment and plan (1) S/P laparoscopic sleeve gastrectomy: Status: Acute Plan Doing well postop day 1, tolerating fluids, up ambulating, urinated. Plan for discharge home Time Spent With Patient Time: Total time managing care of this patient today ____ minutes. Quality Stroke Does the patient have a stroke diagnosis?: No VTE Prior VTE?: Yes VTE Risk Level:: Surgical - moderate VTE Device Contraindication: N/A - Device Ordered VTE Drug Contraindication: Treatment Not Indicated
--- NOTE | 2024-05-25 11:19 | MHC.CM.PN ---
Pt has been medically cleared for DC, home, self care.
== END 2024-05-25 11:29 | disposition home or self-care (01) ==
LOC: HO.SSS 12:56 → HO.S3 13:13
PROVIDERS: Nurse Practitioner; Physician Assistant Surgical; PCP Nurse Practitioner Family; Visit Provider Surgery
PROC: (CPT 43845; principal; 2024-05-24 10:10)
DX: E66.01 Morbid (severe) obesity due to excess calories (principal); Z68.36 Body mass index [BMI] 36.0-36.9, adult; K56.50 Intestinal adhesions [bands], unspecified as to partial versus complete obstruction; Q43.3 Congenital malformations of intestinal fixation; K21.9 Gastro-esophageal reflux disease without esophagitis; G40.909 Epilepsy, unspecified, not intractable, without status epilepticus; D56.9 Thalassemia, unspecified; E03.9 Hypothyroidism, unspecified; F41.9 Anxiety disorder, unspecified; Z86.711 Personal history of pulmonary embolism; Z90.49 Acquired absence of other specified parts of digestive tract; Z90.3 Acquired absence of stomach [part of]; Z79.01 Long term (current) use of anticoagulants; Z98.84 Bariatric surgery status; Z79.899 Other long term (current) drug therapy
CPT/HCPCS: 43775; 43659; 49329; 36415; 80048; 80053; 80061; 81025; 83036; 83525; 84443; 85014; 85018; 85025; 85610; 85730; 86140; 86850; 86900; 86901; 88304; 88307; 88342; A4649; C9145; J0131; J0690; J1100; J1171; J2003; J2250; J2405; J2470; J2704; J2795; J3010; J7120

== ENCOUNTER → 2024-05-24 08:01 | Outpatient (BNV) | payer OTHER, SELFPAY | PROVIDERS: PCP Nurse Practitioner Family; Visit Provider Surgery | DX: E66.9 Obesity, unspecified (principal); Z98.84 Bariatric surgery status; Z68.36 Body mass index [BMI] 36.0-36.9, adult | CPT/HCPCS: 43659; 43775; 99024; 99499 ==

== ENCOUNTER 2024-05-31 13:04 | Outpatient (AMB) | payer OTHER, SELFPAY ==
--- NOTE | 2024-05-31 13:05 | MHC.OFFVISWM ---
VS Expanded 05/31/24 13:23 BP 115/68 Blood Pressure Location Rt brachial Blood Pressure Position Sitting Pulse 82 Pulse Source Pulse Oximeter Temp 97.5 F Temperature Source Temporal Artery Scan Pulse Oximetry 99 Oxygen Delivery Method Room Air Height 5 ft 9 in Weight 228 lb 12.8 oz BMI 33.8 Body Fat % 41.9 Body Fat Mass 95.6 Fat Free Mass 133.0 Visceral Fat Rating 9.0 Body Water % 41.6 Body Water Mass 95.0 Muscle Mass/Score 126.4 Basal Metabolic Rate/Score 1,853 Intake Visit Reasons: (OV) PO LSG 05/24/24 Allergies No Known Allergies [No Known Allergies*] Allergy (Verified 05/31/24 13:14) HPI Comments Details: Patient is a pleasant 43-year-old female who returns to the office today in follow-up. She is 7 days post sleeve gastrectomy performed on 05/24/2024. [facility] Medical History (Updated 05/25/24 @ 00:02 by Lenny Darosalina) Edema of left lower leg Constipation Knee pain Hip pain Urge incontinence Thalassemia syndrome Menorrhagia History of blood clots Bipolar 1 disorder Bilateral hearing loss ADHD COVID-19 Anxiety Obesity Hypothyroidism Depression GERD (gastroesophageal reflux disease) Pulmonary embolism Epilepsy Morbid obesity Surgical History (Updated 05/31/24 @ 13:15 by Belle aRjput CMA) S/P laparoscopic sleeve gastrectomy History of laparoscopic cholecystectomy History of laparoscopic appendectomy Family History Father Coronary artery disease Hypertension Diabetes mellitus Mother Breast cancer Hypertension Daughter No problems noted. Son Asthma Food allergy Son Asthma Food allergy Son Food allergy Asthma Daughter No problems noted. Social History Household Members: Spouse Housing: House Are you a primary ambulatory care coordinator to a significant other at home: No Do you presently have visiting nurse or other home services: Yes Alcohol intake: current Alcohol intake frequency: does not drink Patient Tobacco Use Status: Never used Tobacco Physical Exam Vital Signs: Last Vital Signs Temp 97.5 F 05/31/24 13:23 Pulse 82 05/31/24 13:23 BP 115/68 05/31/24 13:23 Pulse Ox 99 05/31/24 13:23 Oxygen Delivery Method Room Air 05/31/24 13:23 BMI result Body Mass Index 33.8 GI Inspection: Yes incision (Clean, dry, intact.) Assessment & Plan Assessment & Plan (1) S/P laparoscopic sleeve gastrectomy: Code(s): Z98.84 - Bariatric surgery status Category: Surgical Plan: POD 7 s/p LSG on 05/24/[address] Salinas Weight loss prior to surgery was 19.2 pounds or 7.3 % TBWL. Original weight on 07/09/2023 was 261.6 pounds and op weight was 242.4 pounds. Be sure to text Dr Salinas exactly 1 week after surgery your weight from your home scale so he can adjust your meal plan. Continue meal plan until f/u patsy Hanna in 2 weeks May shower, no submersion in bath for another week Continue abdominal binder with activity and exercise for the next 2 weeks. Exercise prior to surgery was treadmill and may resume No abdominal exercises for 6 weeks post operatively Will be emailed link to post op video for review Reminded of the pace of drinking, 2 mL per minute, 1 oz/15 min.
[2024-05-31 13:23] VITALS: BP 115/68; PULSE 82; TEMP 36.4; O2SAT 99; BMI 33.8
== END 2024-05-31 13:54 | disposition home or self-care (01) ==
PROVIDERS: PCP Nurse Practitioner Family; Visit Provider Physician Assistant Surgical
DX: Z98.84 Bariatric surgery status (principal)
CPT/HCPCS: 99024

== ENCOUNTER 2024-06-30 11:14 | Outpatient (AMB) | payer OTHER, SELFPAY ==
--- NOTE | 2024-06-30 11:15 | A.OFFVIS_ITS ---
VS Expanded 06/30/24 11:24 BP 125/77 Blood Pressure Location Rt brachial Blood Pressure Position Sitting Pulse 100 Pulse Source Pulse Oximeter Temp 97.7 F Temperature Source Temporal Artery Scan Height 5 ft 9 in Weight 210 lb 9.6 oz BMI 31.1 Body Fat % 39.8 Body Fat Mass 83.8 Fat Free Mass 126.8 Visceral Fat Rating 8.0 Body Water % 43.0 Body Water Mass 90.6 Muscle Mass/Score 120.4 Basal Metabolic Rate/Score 1,754 Intake Visit Reasons: (OV) PO LSG 05/24/24 Allergies No Known Allergies [No Known Allergies*] Allergy (Verified 06/30/24 11:18) HPI Comments Details: This?a?43?yo female who is s/p LSG without hiatal hernia repair on?05/24/2024. Presents for 1 month post op visit. Weight today is 210.6 pounds, with a BMI of 31.1. There has been a 51 pound weight loss,(initial weight 261.6 pounds) since starting the program on 07/09/2023 reflecting a 19.4% total body weight loss and a weight loss of 31.8 pounds since surgery (operative weight 242.4 pounds) reflecting a 13.1% TBWL since surgery. No complaints of nausea, emesis, abdominal pain or reflux. Reports infrequent but normal bowel movements every 2- 3 days and uses stool softeners regularly. Not doing the third celebrate rebuild 2 scoops as she feels too full Present meal plan includes: Celebrate rebuild, 2 scoops in 8 oz almond milk 530-730, 11-1, 2-4. Celebrate bar, 5-8 pm drinking 55 oz fluids daily ? Exercise routine includes: treadmill, 5 days per week, 400 calories, speed 3, incline automatically [facility] Medical History Edema of left lower leg Constipation Knee pain Hip pain Urge incontinence Thalassemia syndrome Menorrhagia History of blood clots Bipolar 1 disorder Bilateral hearing loss ADHD COVID-19 Anxiety Obesity Hypothyroidism Depression GERD (gastroesophageal reflux disease) Pulmonary embolism Epilepsy Morbid obesity Surgical History S/P laparoscopic sleeve gastrectomy History of laparoscopic cholecystectomy History of laparoscopic appendectomy Family History Father Coronary artery disease Hypertension Diabetes mellitus Mother Breast cancer Hypertension Daughter No problems noted. Son Asthma Food allergy Son Asthma Food allergy Son Food allergy Asthma Daughter No problems noted. Social History Household Members: Spouse Housing: House Are you a primary child care associate to a significant other at home: No Do you presently have visiting nurse or other home services: Yes Alcohol intake: current Alcohol intake frequency: does not drink Patient Tobacco Use Status: Never used Tobacco Physical Exam Const General: healthy appearing and no acute distress Resp Effort & Inspection: normal respiratory effort Auscultation: clear to auscultation bilaterally Cardio Rate: regular rate Rhythm: regular rhythm GI Auscultation: normal bowel sounds Extrem General: Yes normal to inspection Assessment & Plan Assessment & Plan (1) S/P laparoscopic sleeve gastrectomy: Code(s): Z98.84 - Bariatric surgery status Category: Surgical Plan: Celebrate rebuild, 2 scoops in 8 oz almond milk 530-730, 11-1, Celebrate rebuild, 1 scoop in 8 oz of almond milk at 2-4. Celebrate bar, 5-8 pm Continue to send weight measurements weekly. Discussed the importance of following the meal plan exactly. She states that she did purchase unflavored isopure protein powder but has not yet tried it. I did suggest that she could try it substituting for 1 of her shakes in the morning and if she likes it to communicate with myself or Dr. Salinas to change her meal plan accordingly. Continue to exercise as she is doing. Return to clinic 1 month.
[2024-06-30 11:24] VITALS: BP 125/77; PULSE 100; TEMP 36.5; BMI 31.1
== END 2024-06-30 11:52 | disposition home or self-care (01) ==
PROVIDERS: PCP Nurse Practitioner Family; Visit Provider Physician Assistant Surgical
DX: Z98.84 Bariatric surgery status (principal)
CPT/HCPCS: 99024

== ENCOUNTER → 2024-06-30 11:14 | Outpatient (BNVA) | payer OTHER, SELFPAY | PROVIDERS: PCP Nurse Practitioner Family; Visit Provider Physician Assistant Surgical ==

== ENCOUNTER → 2024-08-04 13:37 | Outpatient (BNVA) | payer OTHER, SELFPAY | PROVIDERS: PCP Nurse Practitioner Family; Visit Provider Physician Assistant Surgical | DX: Z98.84 Bariatric surgery status (principal) ==

== ENCOUNTER → 2024-08-04 13:37 | Outpatient (AMB) | payer OTHER, SELFPAY ==
--- NOTE | 2024-08-04 08:09 | A.OFFVIS_ITS ---
VS Expanded 08/04/24 08:11 Height 5 ft 9 in Weight 194 lb 9 oz BMI 28.7 Body Fat % 34.9 Fat Free Mass 126.8 Visceral Fat Rating 11 Body Water % 44.6 Muscle Mass/Score 119.2 Basal Metabolic Rate/Score 1,616 Intake Visit Reasons: (TV) PO LSG 05/24/24 Windshield Wiper Repairer Required: No Allergies No Known Allergies [No Known Allergies*] Allergy (Verified 06/30/24 11:18) Medication List - Last Reconciled 08/04/24 by BRITTANY Nathan apixaban (Eliquis) 2.5 mg PO BID dextroamphetamine-amphetamine 10 mg ER (Adderall XR) 1 cap PO DAILY escitalopram oxalate 20 mg PO DAILY fondaparinux 2.5 mg (0.5 mL) subcut Q24H furosemide 20 mg PO DAILY PRN hydrocodone-acetaminophen 5-325 mg 1 tab PO Q6H PRN levetiracetam (Keppra) 1,000 mg PO BID ondansetron 4 mg PO Q12H pantoprazole 40 mg PO DAILY sucralfate 10 mL PO BID trazodone 50 mg PO BEDTIME PRN HPI Comments Details: This?a?43?yo female who is s/p LSG without hiatal hernia repair on?05/24/2024. Presents for 2 month post op visit. Weight today is 194.9 pounds, with a BMI of 28.7. There has been a 66.7 pound weight loss,(initial weight 261.6 pounds) since starting the program on 07/09/2023 reflecting a 25.4% total body weight loss and a weight loss of 47.5 pounds since surgery (operative weight 242.4 pounds) reflecting a 19.5% TBWL since surgery. No complaints of nausea, emesis, abdominal pain or reflux. Reports infrequent but normal bowel movements every 2- 3 days and uses stool softeners regularly. Feeling much better after recovery from Influenza B. she did require hospitalization at [facility] due to feeling weak and inability to tolerate p.o. intake. She was hospitalized for several days, receiving IV fluids, IV potassium replacement and magnesium replacement. She has since been discharged and is feeling better. She has started back on her shakes and has not been able to exercise yet but is hoping to do so over the next couple of days. Present meal plan includes: Celebrate rebuild, 2 scoops in 8 oz almond milk 530-730, 11-1, Celebrate rebuild, 1 scoop in 8 oz of almond milk at 2-4. Celebrate bar, 5-8 pm drinking 55 oz fluids daily ? Exercise routine includes: treadmill, 5 days per week, 400 calories, speed 3, incline automatically PFSH Medical History Edema of left lower leg Constipation Knee pain Hip pain Urge incontinence Thalassemia syndrome Menorrhagia History of blood clots Bipolar 1 disorder Bilateral hearing loss ADHD COVID-19 Anxiety Obesity Hypothyroidism Depression GERD (gastroesophageal reflux disease) Pulmonary embolism Epilepsy Morbid obesity Surgical History S/P laparoscopic sleeve gastrectomy History of laparoscopic cholecystectomy History of laparoscopic appendectomy Family History Father Coronary artery disease Hypertension Diabetes mellitus Mother Breast cancer Hypertension Daughter No problems noted. Son Asthma Food allergy Son Asthma Food allergy Son Food allergy Asthma Daughter No problems noted. Social History Household Members: Spouse Housing: House Are you a primary adult caregiver to a significant other at home: No Do you presently have visiting nurse or other home services: Yes Alcohol intake: current Alcohol intake frequency: does not drink Patient Tobacco Use Status: Never used Tobacco Physical Exam Vital Signs: BMI result Body Mass Index 28.7 Telehealth Telehealth Telehealth Platform: Telephone Location of provider rendering services: practice address Location of patient: other Patient Identification confirmed using: Name, : Yes Telehealth method: voice only Patient verbally consented to treatment: Yes Patient verbally consented to billing insurance company: Yes Patient informed of any privacy concerns related to visit: Yes Minutes spent on Phone/Video with Pt.: 15 Assessment & Plan Assessment & Plan (1) S/P laparoscopic sleeve gastrectomy: Code(s): Z98.84 - Bariatric surgery status Category: Surgical Plan: Overall, doing well. She is recovering from influenza B. She did require hospitalization during this period. She is now able to tolerate her shakes and we will resume exercise as she is able. Encouraged to send weight is weekly and text with any questions or concerns. Encouraged to stay hydrated and we will follow up in the office as scheduled
== END | disposition home or self-care (01) ==
PROVIDERS: PCP Nurse Practitioner Family; Visit Provider Physician Assistant Surgical
DX: Z98.84 Bariatric surgery status (principal)
CPT/HCPCS: 99024

== ENCOUNTER 2024-09-08 10:00 | Outpatient (AMB) | payer OTHER, SELFPAY ==
--- NOTE | 2024-09-08 08:01 | A.OFFVIS_ITS ---
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 Presents for 4 month post op visit. Weight today is 194.4 pounds, with a BMI of 28.7. There has been a 67.2 pound weight loss,(initial weight 261.6 pounds) since starting the program on 07/09/2023 reflecting a 25.5% total body weight loss and a weight loss of 48 pounds since surgery (operative weight 242.4 pounds) reflecting a 19.6% TBWL since surgery. No complaints of nausea, emesis, abdominal pain or reflux. Reports infrequent but normal bowel movements every 2- 3 days and uses stool softeners regularly. Feeling much better after recovery from Influenza B. She has not been exercising due to lack of motivation. She is thinking of joining PF with a co- worker on wednesday. Present meal plan includes: Celebrate rebuild, 2 scoops in 8 oz almond milk 530-730, 11-1, Celebrate rebuild, 1 scoop in 8 oz of almond milk at 2-4. Celebrate bar, 5-8 pm drinking 55 oz fluids daily ? Exercise routine includes: home treadmill, none in the last 2 weeks [facility] Medical History Edema of left lower leg Constipation Knee pain Hip pain Urge incontinence Thalassemia syndrome Menorrhagia History of blood clots Bipolar 1 disorder Bilateral hearing loss ADHD COVID-19 Anxiety Obesity Hypothyroidism Depression GERD (gastroesophageal reflux disease) Pulmonary embolism Epilepsy Morbid obesity Surgical History S/P laparoscopic sleeve gastrectomy History of laparoscopic cholecystectomy History of laparoscopic appendectomy Family History Father Coronary artery disease Hypertension Diabetes mellitus Mother Breast cancer Hypertension Daughter No problems noted. Son Asthma Food allergy Son Asthma Food allergy Son Food allergy Asthma Daughter No problems noted. Social History Household Members: Spouse Housing: House Are you a primary home care provider to a significant other at home: No Do you presently have visiting nurse or other home services: Yes Alcohol intake: current Alcohol intake frequency: does not drink Patient Tobacco Use Status: Never used Tobacco Physical Exam Vital Signs: BMI result Body Mass Index 28.7 Telehealth Telehealth Telehealth Platform: Telephone Location of provider rendering services: practice address Location of patient: other Patient Identification confirmed using: Name, : Yes Telehealth method: voice only Patient verbally consented to treatment: Yes Patient verbally consented to billing insurance company: Yes Patient informed of any privacy concerns related to visit: Yes Minutes spent on Phone/Video with Pt.: 15 Assessment & Plan Assessment & Plan (1) S/P laparoscopic sleeve gastrectomy: Code(s): Z98.84 - Bariatric surgery status Category: Surgical Plan: Celebrate rebuild, 2 scoops in 8 oz almond milk 530-730, 11-1, Celebrate bar at 2-4. Meal at 5 pm with 4 forks protein and 4 forks cooked veg Discussed the importance of returning to exercise including adding weight training at the gym. She is going to joined [employer]. I have also encouraged her to send me her weight is weekly and text with any questions or concerns. We will have her return to the office in approximately 2 months.
[2024-09-08 08:02] VITALS: BMI 28.7
--- OUTSIDE RECORDS SUMMARY | 2024-09-08 11:43 | XMS_ITS | Clinical Summary ---
Author Organization [facility] Address [address] [place] [address] Care Team Providers Care Sterile Proc Tech Name Role Phone Asmita Sanchez MD Primary Care Provider [phone] Surgical History Surgery Date Site/Laterality Comments APPENDECTOMY PROCEDURE: HISTORICAL APPENDECTOMY CHOLECYSTECTOMY PROCEDURE: HISTORICAL CHOLECYSTECTOMY; COMMENT: 01/2019 Medical History Medical History Date Comments Epilepsy (CMS/HCC) DX:Epilepsy ( HCC); COMMENT: No seizure x 5 years Hematuria 01/19/2012 DX:Hematuria Pulmonary embolism (CMS/HCC) DX: Pulmonary embolism (HCC); COMMENT: x 2 Cholelithiasis DX:Cholelithiasi s On anticoagulant therapy DX:On a nticoagulant therapy Family hx of colorectal cancer D X:Family hx of colorectal cancer; COMMENT: Patient should have screening colonoscopy at age 40. Bipolar I disorder (CMS/HCC) DX: Bipolar I disorder (HCC) Family History Medical History Relation Name Comments Colon cancer Aunt paternal aunt No Known Problems Brother Colon polyps Father Hypertension Father Cirrhosis Maternal Grandfather Leukemia Maternal Grandmother Hypertension Mother Coronary artery disease Paternal Grandfather Diabetes Paternal Grandmother Hypertension Paternal Grandmother Allergies Sister Breast cancer Neg Hx Ovarian cancer Neg Hx Relation Name Status Comments Aunt Brother Alive Daughter Alive age6 Father Alive Maternal Grandfather Maternal Grandmother Mother Alive Paternal Grandfather Paternal Grandmother Alive Sister Alive Son Alive [id number] Social History Tobacco Use Types Packs/Day Years Used Date Smoking Tobacco: Never Smokeless Tobacco: Never Alcohol Use Standard Drinks/Week Comments Yes 0 (1 standard drink = 0.6 oz pur e alcohol) Comments Unknown Sex and Gender Information Value Date Recorded Sex Assigned at Not on file Legal Sex Female 10:10 AM EST Gender Identity Not on file Sexual Orientation Not on file Obstetrics History Plan of Treatment Health Maintenance Due Date Last Done Comments Breast Cancer Screening 1982 Hepatitis B Vaccines (1 of 3 - 19+ 3-dose series) 2001 08/07/2004, 02/28/2004, 02/01/2004 Cervical Cancer Screening: Pap Smear 10/26/2003 HPV Vaccines (2 - 3-dose series) 06/04/2009 05/07/2009 DTaP,Tdap,and Td Vaccines (8 - Td or Tdap) 11/03/2021 11/04/2011, 02/01/2004, 02/24/1988, Additional history exists COVID-19 Vaccine ( season) 2024 Influenza Vaccine (#1) 2024 7, 03/13/2015, 04/28/2013, Additional history exists MMR Vaccines Completed 09/05/1985 IPV Vaccines Completed 02/24/1988, 05/28, 03/23/1983, Additional history exists HIB Vaccines Aged Out No longer eligi ble based on patient's age to complete this topic Hepatitis A Vaccines Aged Out No long er eligible based on patient's age to complete this topic Meningococcal ACWY Vaccine Aged Out N o longer eligible based on patient's age to complete this topic Meningococcal B Vacine Aged Out No lo nger eligible based on patient's age to complete this topic Pneumococcal Vaccine: Pediatrics (0 to 5 Years) and At-Risk Patients (6 to 64 Years) Aged Out No longer eligible based on patient's age to complete this topic RSV Immunization Patients Under 20 months Aged Out No longer eligible based on patient's age to complete this topic Varicella Vaccines Aged Out No longer eligible based on patient's age to complete this topic Care Teams Sterile Proc Tech Relationship Specialty Start Date End Date Asmita Sanchez MD PCP - General Internal Medicine 10/13/21
== END 2024-09-08 10:29 | disposition home or self-care (01) ==
LOC: HO.HBS 10:22
PROVIDERS: PCP Nurse Practitioner Family; Visit Provider Physician Assistant Surgical
DX: E66.3 Overweight (principal); Z68.28 Body mass index [BMI] 28.0-28.9, adult; Z90.3 Acquired absence of stomach [part of]; Z98.84 Bariatric surgery status
CPT/HCPCS: 99213; G2211

== ENCOUNTER → 2024-09-08 10:00 | Outpatient (BNVA) | payer OTHER, SELFPAY | PROVIDERS: PCP Nurse Practitioner Family; Visit Provider Physician Assistant Surgical ==

== ENCOUNTER 2025-01-31 09:00 | Outpatient (AMB) | payer OTHER, SELFPAY ==
--- NOTE | 2025-01-31 08:46 | MHC.OFFVISWM ---
VS Expanded 01/31/25 08:47 Height 5 ft 9 in Weight 191 lb 7 oz BMI 28.3 Body Fat % 34.4 Fat Free Mass 125.6 Visceral Fat Rating 10 Body Water % 44.9 Muscle Mass/Score 118.1 Basal Metabolic Rate/Score 1,600 Intake Visit Reasons: (TV) PO LSG 05/24/24 Lean Facilitator Required: No Allergies No Known Allergies (No Known Allergies*) Allergy (Verified 06/30/24 11:18) Medication List - Last Reconciled 01/31/25 by BRITTANY Nathan apixaban (Eliquis) 2.5 mg PO BID Held on 05/25/24. Instructions: Until discuss with Dr. Salinas dextroamphetamine-amphetamine 10 mg ER (Adderall XR) 1 cap PO DAILY escitalopram oxalate 20 mg PO DAILY fondaparinux 2.5 mg (0.5 mL) subcut Q24H Held on 05/24/24. Instructions: until discussed with dr salinas furosemide 20 mg PO DAILY PRN hydrocodone-acetaminophen 5-325 mg 1 tab PO Q6H PRN levetiracetam (Keppra) 1,000 mg PO BID trazodone 50 mg PO BEDTIME PRN HPI Comments Details: This?a?44?yo female who is s/p LSG without hiatal hernia repair on?05/24/2024. Presents for 9 month post op visit. Weight today is 191.7 pounds, with a BMI of 28.3. There has been a 69.9 pound weight loss,(initial weight 261.6 pounds) since starting the program on 07/09/2023 reflecting a 25.5% total body weight loss and a weight loss of 50.7 pounds since surgery (operative weight 242.4 pounds) reflecting a 20.9% TBWL since surgery. No complaints of nausea, emesis, abdominal pain or reflux. Reports infrequent but normal bowel movements every 2-3 days and uses stool softeners regularly. She states that since her last visit she is not following the meal plan and has feeling of lightheaded in the morning and she is eating 1-2 x per day and snacking. This has been going on for 2 months. Wants to get back on track and enjoyed celebrate rebuild Previous meal plan includes: Celebrate rebuild, 2 scoops in 8 oz almond milk 530-730, 11-1, Celebrate bar at 2-4. Meal at 5 pm with 4 forks protein and 4 forks cooked veg drinking 55 oz fluids daily ? Exercise routine includes: walking 0.5 mi daily for the last 2 weeks. [facility] Medical History Edema of left lower leg Constipation Knee pain Hip pain Urge incontinence Thalassemia syndrome Menorrhagia History of blood clots Bipolar 1 disorder Bilateral hearing loss ADHD COVID-19 Anxiety Obesity Hypothyroidism Depression GERD (gastroesophageal reflux disease) Pulmonary embolism Epilepsy Morbid obesity Surgical History S/P laparoscopic sleeve gastrectomy History of laparoscopic cholecystectomy History of laparoscopic appendectomy Family History Father Coronary artery disease Hypertension Diabetes mellitus Mother Breast cancer Hypertension Daughter No problems noted. Son Asthma Food allergy Son Asthma Food allergy Son Food allergy Asthma Daughter No problems noted. Social History Household Members: Spouse Housing: House Are you a primary senior caregiver to a significant other at home: No Do you presently have visiting nurse or other home services: Yes Alcohol intake: current Alcohol intake frequency: does not drink Patient Tobacco Use Status: Never used Tobacco Telehealth Telehealth Telehealth Platform: Telephone Location of provider rendering services: practice address Location of patient: address on file Patient Identification confirmed using: Name, : Yes Telehealth method: voice only Patient verbally consented to treatment: Yes Patient verbally consented to billing insurance company: Yes Patient informed of any privacy concerns related to visit: Yes Minutes spent on Phone/Video with Pt.: 20 Assessment & Plan Assessment & Plan (1) S/P laparoscopic sleeve gastrectomy: Code(s): Z98.84 - Bariatric surgery status Category: Surgical Plan: Patient has not been communicating. She has not been following the meal plan. She has not been feeling very well overall. Discussed the importance of communicating with us and she wants to feel better. We discussed resuming the meal plan that was previously recommended to her and it was given to her again. Additionally, encouraged to use her membership at [employer] with a rotation of cardiovascular equipment including stationary bike, treadmill, rowing machine, elliptical machine with a goal of burning 300 calories per day, 7 days per week. She states that she will do this as well as follow the meal plan as directed. We will have her return to the office in April for her 1 year follow-up appointment, check labs at that time. Additionally, encouraged to text weekly with her weight is and certainly with any questions or concerns.
[2025-01-31 08:47] VITALS: BMI 28.3
--- OUTSIDE RECORDS SUMMARY | 2025-01-31 09:59 | XMS_ITS | Clinical Summary ---
Author Organization [facility] Address [address] [place] [address] Care Team Providers Care Tie Knitter Helper Name Role Phone Asmita Sanchez MD Primary Care Provider [phone] Surgical History Surgery Date Site/Laterality Comments APPENDECTOMY PROCEDURE: HISTORICAL APPENDECTOMY CHOLECYSTECTOMY PROCEDURE: HISTORICAL CHOLECYSTECTOMY; COMMENT: 01/2019 Medical History Medical History Date Comments Epilepsy (CMS/HCC V24, CMS/HCC V28) DX:Epilepsy (HCC); COMMENT: No seizure x 5 years Hematuria 01/19/2012 DX:Hematuria Pulmonary embolism (CMS/HCC V24, CMS/HCC V28) DX:Pulmonary embolism (HCC); COMMENT: x 2 Cholelithiasis DX:Cholelithiasi s On anticoagulant therapy DX:On a nticoagulant therapy Family hx of colorectal cancer D X:Family hx of colorectal cancer; COMMENT: Patient should have screening colonoscopy at age 42. Bipolar I disorder (CMS/HCC V24, CMS/HCC V28) DX:Bipolar I disorder (HCC) Family History Medical History [...] Paternal Grandmother Alive Sister Alive Son Alive [id number] Social History Tobacco Use Types Packs/Day Years [...] history exists COVID-19 Vaccine ( season) 2024 Depression Screening 06/28/2024 Influenza Vaccine (#1) 2025 7, 03/13/2015, 04/28/2013, Additional history exists MMR [...] age to complete this topic Meningococcal B Vaccine Aged Out No l onger eligible based on patient's age to complete this topic Pneumococcal Vaccine: Pediatrics (0 to 5 Years) and At-Risk Patients (6 to 49 Years) Aged Out No longer eligible based on patient's age to complete this topic RSV Immunization Patients Under 20 months Aged Out No longer eligible based on patient's age to complete this topic Varicella Vaccines Aged Out No longer eligible based on patient's age to complete this topic Care Teams Tie Knitter Helper Relationship Specialty Start Date End Date Asmita Sanchez MD PCP - General Internal Medicine 10/13/21
== END 2025-01-31 09:47 | disposition home or self-care (01) ==
LOC: HO.HBS 09:37
PROVIDERS: PCP Nurse Practitioner Family; Visit Provider Physician Assistant Surgical
DX: E66.3 Overweight (principal); Z68.28 Body mass index [BMI] 28.0-28.9, adult; Z90.3 Acquired absence of stomach [part of]; Z98.84 Bariatric surgery status
CPT/HCPCS: 99213

== ENCOUNTER 2025-05-16 12:00 | Outpatient (AMB) | payer OTHER, SELFPAY ==
[2025-05-16 12:13] VITALS: BP 111/70; PULSE 86; TEMP 36.3; BMI 24.9
--- NOTE | 2025-05-16 12:13 | MHC.OFFVISWM ---
VS Expanded 05/16/25 12:13 BP 111/70 Blood Pressure Location Rt brachial Blood Pressure Position Sitting Pulse 86 Pulse Source Monitor Temp 97.4 F Temperature Source Temporal Artery Scan Height 5 ft 9 in Weight 168 lb 6.4 oz BMI 24.9 Body Fat % 20.3 Body Fat Mass 34.2 Fat Free Mass 134.0 Visceral Fat Rating 3.0 Body Water % 56.9 Body Water Mass 95.6 Muscle Mass/Score 127.2 Basal Metabolic Rate/Score 1,761 Intake Visit Reasons: (OV) PO LSG 05/24/24 Allergies bee pollen (bees) Allergy (Severe, Verified 05/16/25 12:18) Swelling papaya Allergy (Severe, Verified 05/16/25 12:18) Angioedema Medication List - Last Reconciled 05/16/25 by Eagle Holley RN apixaban (Eliquis) 2.5 mg PO BID Held on 05/25/24. Instructions: Until discuss with Dr. Salinas dextroamphetamine-amphetamine 10 mg ER (Adderall XR) 1 cap PO DAILY escitalopram oxalate 20 mg PO DAILY furosemide 20 mg PO DAILY PRN levetiracetam (Keppra) 1,000 mg PO BID trazodone 50 mg PO BEDTIME PRN HPI Comments Details: This a 44 yo female who is s/p LSG without hiatal hernia repair on 05/24/2024. Presents for 1 year post op visit. Weight today is 168.4 pounds, with a BMI of 24.9. Pt has reached a healthy weight. Initial weight 261.6 pounds starting the program on 07/09/2023 and operative weight 242.4 pounds. No complaints of nausea, emesis, abdominal pain or reflux. Reports frequency of bowel movements have improved being off oral iron. Got back on the meal plan over the past few months and reports she feels much better now with much less stomach discomfort. Also has been getting iron infusions due to anemia. Previous meal plan includes: Celebrate 4:1, 2 scoops in 8 oz almond milk 530-730, 11-1 Celebrate bar at 2-4 Meal at 5 pm with 4 forks protein and 4 forks cooked veg- chicken and fish drinking 55 oz fluids daily Exercise routine includes: none- low energy due to low iron was doing Crossfit 3x/week until February Have you been diagnosed with reflux (GERD)? Score 0-5: 0=no symptoms, 1=noticeable but not bothersome (slight or occasional), 2=noticeable, bothersome but not daily, 3=bothersome and daily, 4=affects daily activities, 5=incapacitating, unable to do daily activities How bad is the heartburn: 0 Heartburn when lying down: 0 Heartburn when standing up: 0 Heartburn after meals: 0 Does heartburn change your diet: 0 Does heartburn wake you up from sleep: 0 Do you have difficulty swallowin Do you have pain with swallowin If you take medication for reflux, does this affect your daily life: 0 Total score: 0 PFSH Medical History Edema of left lower leg Constipation Knee pain Hip pain Urge incontinence Thalassemia syndrome Menorrhagia History of blood clots Bipolar 1 disorder Bilateral hearing loss ADHD COVID-19 Anxiety Obesity Hypothyroidism Depression GERD (gastroesophageal reflux disease) Pulmonary embolism Epilepsy Morbid obesity Surgical History S/P laparoscopic sleeve gastrectomy History of laparoscopic cholecystectomy History of laparoscopic appendectomy Family History Father Coronary artery disease Hypertension Diabetes mellitus Mother Breast cancer Hypertension Daughter No problems noted. Son Asthma Food allergy Son Asthma Food allergy Son Food allergy Asthma Daughter No problems noted. Social History Household Members: Spouse Housing: House Are you a primary morning caregiver to a significant other at home: No Do you presently have visiting nurse or other home services: Yes Alcohol intake: current Alcohol intake frequency: does not drink Patient Tobacco Use Status: Never used Tobacco Physical Exam Vital Signs: Last Vital Signs Temp 97.4 F 05/16/25 12:13 Pulse 86 05/16/25 12:13 BP 111/70 05/16/25 12:13 BMI result Body Mass Index 24.9 Assessment & Plan Assessment & Plan (1) S/P laparoscopic sleeve gastrectomy: Code(s): Z98.84 - Bariatric surgery status Category: Surgical Plan Pt has achieved a healthy BMI. She is back on track with nutrition. She plans to increase exercise once energy levels improve. We discussed avoiding spicy foods. Receiving iron infusions. Labs ordered. RTC 3 months. Orders: Orders Insulin Today Z98.84 - Bariatric surgery status Complete Blood Count Auto Diff Today Z98.84 - Bariatric surgery status Lipid Panel Today Z98.84 - Bariatric surgery status Zinc Today Z98.84 - Bariatric surgery status Vitamin B1 Today Z98.84 - Bariatric surgery status Vitamin A Today Z98.84 - Bariatric surgery status TSH reflex Free T4 Today Z98.84 - Bariatric surgery status IRON PROFILE Today Z98.84 - Bariatric surgery status Hemoglobin A1c Today Z98.84 - Bariatric surgery status Vitamin B12 and Folate Today Z98.84 - Bariatric surgery status Comprehensive Met. Panel Today Z98.84 - Bariatric surgery status C Reactive Protein Today Z98.84 - Bariatric surgery status Vitamin D 25-OH Total Today Z98.84 - Bariatric surgery status Ferritin Today Z98.84 - Bariatric surgery status
== END 2025-05-16 12:47 | disposition home or self-care (01) ==
LOC: HO.HBS 12:00
PROVIDERS: PCP Nurse Practitioner Family; Visit Provider Physician Assistant Surgical
DX: Z71.3 Dietary counseling and surveillance (principal); Z90.3 Acquired absence of stomach [part of]; Z98.84 Bariatric surgery status
CPT/HCPCS: 99214; G2211

== ENCOUNTER → 2025-05-16 12:00 | Outpatient (BNVA) | payer OTHER, SELFPAY | PROVIDERS: PCP Nurse Practitioner Family; Visit Provider Physician Assistant Surgical | DX: Z98.84 Bariatric surgery status (principal) | CPT/HCPCS: 99212 ==